=== PATIENT | male | born 1930 | race Caucasian/White ===

== ENCOUNTER → 2016-09-13 | Outpatient (CLI) | payer MEDICARE ==
[2016-09-13 11:42] LABS: INR 3.5 (<1.1); Prothrombin Time 33.7 sec (9.0-12.0)
== END | disposition home or self-care (01) ==
LOC: LABWHC1 11:23
PROVIDERS: ATTEND Internal Medicine
DX: I48.1 Persistent atrial fibrillation (principal)
CPT/HCPCS: 36415; 85610

== ENCOUNTER → 2016-12-20 | Outpatient (CLI) | payer MEDICARE ==
[2016-12-20 12:39] LABS: INR 2.2 (<1.1); Prothrombin Time 21.6 sec (9.0-12.0)
== END | disposition home or self-care (01) ==
LOC: LABWHC1 11:46
PROVIDERS: ATTEND Internal Medicine
DX: I48.2 Chronic atrial fibrillation (principal)
CPT/HCPCS: 36415; 85610

== ENCOUNTER → 2017-01-15 | Outpatient (CLI) | payer MEDICARE ==
[2017-01-15 16:34] LABS: Basophils % (A) 0 %; CH 29.5; CHCM 33.1; Eosinophils # (A) 0.1 k/uL (0-0.7); Eosinophils % (A) 1 %; HCT 41.9 % (39.0-53.0); HDW 2.58; HGB 13.9 gm/dL (13.0-17.5); Luc # (Auto) 0.13; Luc % (Auto) 2; Lymphocytes # (A) 1.4 k/uL (1.0-4.8); Lymphocytes % (A) 16 %; MCH 29.8 pg (25.0-35.0); MCHC 33.2 g/dL (31.0-37.0); MCV 89.8 fL (80.0-100.0); Mean Platelet Volume 7.2; Monocytes # (A) 0.4 k/uL (0-1.0); Monocytes % (A) 5 %; Neutrophils # (A) 6.4 k/uL (1.3-7.7); Neutrophils % (A) 76 %; RBC 4.67 m/uL (4.30-5.90); RDW 13.8 % (11.5-15.5); WBC 8.4 k/uL (3.8-10.6); WBC (Perox) 8.41
[2017-01-15 16:43] LABS: INR 1.8 (<1.1); Prothrombin Time 17.8 sec (9.0-12.0)
[2017-01-15 16:53] LABS: ALT 34 U/L (21-72); AST 29 U/L (17-59); Alkaline Phosphatase 110 U/L (38-126); Anion Gap 10 mmol/L; Blood Urea Nitrogen 20 mg/dL (9-20); Calcium 9.5 mg/dL (8.4-10.2); Carbon Dioxide 28 mmol/L (22-30); Chloride 103 mmol/L (98-107); Glucose 116 mg/dL (74-99); Non-African American GFR(MDRD) >60 (>60 ml/min/1.73 sqM); Potassium 4.8 mmol/L (3.5-5.1); Sodium 141 mmol/L (137-145); Total Bilirubin 1.4 mg/dL (0.2-1.3); Total Protein 6.8 g/dL (6.3-8.2)
[2017-01-15 18:29] LABS: Erythrocyte Sedimentation Rate 8 mm/hr (0-15)
--- NOTE | 2017-01-15 18:56 | CT ---
EXAMINATION TYPE: CT brain wo con DATE OF EXAM: 01/15/2017 6:48 PM COMPARISON: 06/07/2016 HISTORY: Dizziness, and syncopal episode [address] DLP: 1236 mGycm Automated exposure control for dose reduction was used. FINDINGS: There is cerebral cortical atrophy. There is no mass effect nor midline shift. There is no sign of in tracranial hemorrhage. The calvarium is intact. IMPRESSION: Cerebral atrophy. No acute intracranial abnormality. No change.
== END | disposition home or self-care (01) ==
LOC: RADCTMAIN 16:12
PROVIDERS: ATTEND Internal Medicine
DX: G31.9 Degenerative disease of nervous system, unspecified (principal); I48.0 Paroxysmal atrial fibrillation; I10 Essential (primary) hypertension
CPT/HCPCS: 70450; 80053; 85025; 85610; 85652

== ENCOUNTER 2017-02-13 12:46 | Inpatient (IN) | payer MEDICARE ==
[2017-02-13] MEDS ORDERED: SODIUM CHLORIDE 0.9% 500 ML IV STA (13:23)
[2017-02-13 14:21] LABS: Basophils % (A) 0 %; CH 29.4; CHCM 32.8; Eosinophils # (A) 0.1 k/uL (0-0.7); Eosinophils % (A) 1 %; HCT 39.5 % (39.0-53.0); HDW 2.54; HGB 12.9 gm/dL (13.0-17.5); Luc # (Auto) 0.14; Luc % (Auto) 1; Lymphocytes % (A) 8 %; MCH 29.3 pg (25.0-35.0); MCHC 32.6 g/dL (31.0-37.0); Mean Platelet Volume 7.5; Monocytes # (A) 0.7 k/uL (0-1.0); Monocytes % (A) 5 %; Neutrophils % (A) 85 %; RBC 4.39 m/uL (4.30-5.90); RDW 13.4 % (11.5-15.5); WBC (Perox) 12.92
[2017-02-13 14:24] LABS: INR 2.1 (<1.1); Partial Thromboplastin Time 31.4 sec (22.0-30.0); Prothrombin Time 20.5 sec (9.0-12.0)
[2017-02-13 14:25] LABS: ALT 52 U/L (21-72); AST 45 U/L (17-59); Alkaline Phosphatase 133 U/L (38-126); Anion Gap 10 mmol/L; Blood Urea Nitrogen 23 mg/dL (9-20); Calcium 9.2 mg/dL (8.4-10.2); Carbon Dioxide 27 mmol/L (22-30); Chloride 101 mmol/L (98-107); Glucose 101 mg/dL (74-99); Non-African American GFR(MDRD) >60 (>60 ml/min/1.73 sqM); Potassium 4.6 mmol/L (3.5-5.1); Sodium 138 mmol/L (137-145); Total Bilirubin 2.3 mg/dL (0.2-1.3); Total Protein 6.8 g/dL (6.3-8.2)
[2017-02-13] MEDS ORDERED: LEVOFLOXACIN 500MG-D5W PMX 500 MG in DEXTROSE/WATER 1 100ML.BAG IVPB STA (14:40)
--- NOTE | 2017-02-13 14:42 | ED ---
General Adult HPI - General Chief complaint: Shortness of Breath Stated complaint: Upper Resp Infection Time Seen by Provider: 02/13/17 13:16 Source: patient, family, RN notes reviewed Mode of arrival: wheelchair Limitations: no limitations - History of Present Illness Initial comments: chief complaint and history of present illness this is an 86-year-old male here with his family. They're sent here from x-ray because chest x-ray showed right upper lobe pneumonia. The patient was seen earlier in the day but the family physician or the x-ray. Patient reports had a productive cough develop a fever he thinks yesterday and has chest pain when he coughs. - Related Data Home Medications Medication Instructions Recorded Confirmed Aspirin [Adult Low Dose Aspirin EC] 81 mg PO DAILY 05/04/16 02/13/17 Digoxin [Lanoxin] 125 mcg PO DAILY 05/04/16 02/13/17 Finasteride [Proscar] 5 mg PO DAILY 05/04/16 02/13/17 Lisinopril [Zestril] 5 mg PO DAILY 05/04/16 02/13/17 Simvastatin [Zocor] 40 mg PO HS 05/04/16 02/13/17 Warfarin [Coumadin] 5 mg PO HS 05/04/16 02/13/17 amLODIPine [Norvasc] 5 mg PO DAILY 05/04/16 02/13/17 Metoprolol Succinate [Toprol XL] 50 mg PO DAILY 06/07/16 02/13/17 Omeprazole [PriLOSEC] 20 mg PO AC-BRKFST PRN 02/13/17 02/13/17 traMADol HCL [Ultram] 50 mg PO TID PRN 02/13/17 02/13/17 Allergies Allergy/AdvReac Type Severity Reaction Status Date / Time No Known Allergies Allergy Verified 02/13/17 13:54 Review of Systems ROS Statement: Those systems with pertinent positive or pertinent negative responses have been documented in the HPI. review of systems. Patient denies any visual acuity changes no headache no stiff neck he has productive cough with a fever today chest pain when he coughs. No GI/ or neuro deficits. All systems were reviewed Past medical problems significant for A. fib on Coumadin, hyperlipidemia, hypertension. He had a heart attack in 1999. Osteoarthritis left sciatica. After his open heart surgery and a TIA's from which she is recovered. The patient's surgeries also include cholecystectomy and hernia repair pacemaker. And his coronary bypass. Family history father had cancer of unknown type. Patient denies ALLERGIES quit smoking 40 years ago denies alcohol use ROS Other: All systems not noted in ROS Statement are negative. Past Medical History Past Medical History: Atrial Fibrillation, Hyperlipidemia, Hypertension, Myocardial Infarction ([place]), Osteoarthritis (OA) Additional Past Medical History / Comment(s): pain lt sciatica Last Myocardial Infarction Date:: 1999 History of Any Multi-Drug Resistant Organisms: None Reported Past Surgical History: Cholecystectomy, Coronary Bypass/CABG, Hernia Repair, Pacemaker Past Anesthesia/Blood Transfusion Reactions: Motion Sickness Type of Cardiac Device: Permanent Pacemaker Device Placement Date:: 2009 Past Psychological History: No Psychological Hx Reported Smoking Status: Former smoker Past Alcohol Use History: Rare Additional Past Alcohol Use History / Comment(s): smoker 40 years 2 ppd quit 1978 Past Drug Use History: None Reported - Past Family History Father Family Medical History: Cancer Additional Family Medical History / Comment(s): lymphoma Brother(s) Family Medical History: Cancer General Exam - General Exam Comments Initial Comments: General: The patient is awake and alert, complaining of productive cough, noted to have fever today. Chest hurts when he coughs. Vital signs shows temperature 102.4 pulse 64 respiratory rate 18 pulse ox 94% on 2 L blood pressure 137/62 Eye: Pupils are equal, round and reactive to light, extra-ocular movements are intact ; there is normal conjunctiva bilaterally. No signs of icterus. Ears, nose, mouth and throat: There are moist mucous membranes and no oral lesions. Neck: The neck is supple, there is no tenderness , no anterior cervical lymphadenopathy, thyroid not enlarged. Cardiovascular: A regular rate and rhythm, history of A. fib. Faint murmur appreciated. Respiratory: crepitant rales right lung field. Faint wheeze. Gastrointestinal: Soft, non-distended, non-tender abdomen without masses or organomegaly noted. There is no rebound or guarding present. No CVA tenderness. Bowel sounds are unremarkable. Back: There is no tenderness to palpation in the midline. There is no obvious deformity. No rashes noted. Musculoskeletal: Normal ROM, no tenderness, There is no pedal edema. There is no calf tenderness or swelling. Sensation intact. Pulses equal bilaterally 2+. Neurological: CN II-XII intact, There are no obvious motor or sensory deficits. Coordination appears grossly intact. Speech is normal. Skin: Skin is warm and dry and no rashes or lesions are noted. Limitations: no limitations Course Vital Signs 02/13/17 13:09 Temperature 102.4 F H Pulse Rate 64 Respiratory 18 Rate Blood Pressure 137/66 O2 Sat by Pulse 94 L Oximetry Medical Decision Making - Medical Decision Making medical decision making; white count is 13 hemoglobin 12.9 hematocrit 39. D- dimer slightly elevated 0.64 and INR 2.1. Patient's potassium is 4.6 BUN 23 creatinine 0.99 GFR greater than 60. Sugar 101. Total bilirubin elevated 2.3 alk phos 133. Patient be admitted to hospitalist, Dr. Skinner. Patient was started on Levaquin after blood cultures were drawn. - Lab Data Result diagrams: 02/13/17 13:56 02/13/17 13:56 Lab Results 02/13/17 02/13/17 02/13/17 Range/Units 13:56 13:56 13:56 WBC 13.0 H (3.8-10.6) k/uL RBC 4.39 (4.30-5.90) m/uL Hgb 12.9 L (13.0-17.5) gm/dL Hct 39.5 (39.0-53.0) % MCV 90.0 (80.0-100.0) fL MCH 29.3 (25.0-35.0) pg MCHC 32.6 (31.0-37.0) g/dL RDW 13.4 (11.5-15.5) % Plt Count 266 (150-450) k/uL Neutrophils % 85 % Lymphocytes % 8 % Monocytes % 5 % Eosinophils % 1 % Basophils % 0 % Neutrophils # 11.0 H (1.3-7.7) k/uL Lymphocytes # 1.0 (1.0-4.8) k/uL Monocytes # 0.7 (0-1.0) k/uL Eosinophils # 0.1 (0-0.7) k/uL Basophils # 0.0 (0-0.2) k/uL PT 20.5 H (9.0-12.0) sec INR 2.1 (<1.1) APTT 31.4 H (22.0-30.0) sec D-Dimer 0.64 H (<0.60) mg/L FEU Sodium 138 (137-145) mmol/L Potassium 4.6 (3.5-5.1) mmol/L Chloride 101 (98-107) mmol/L Carbon Dioxide 27 (22-30) mmol/L Anion Gap 10 mmol/L BUN 23 H (9-20) mg/dL Creatinine 0.99 (0.66-1.25) mg/dL Est GFR (MDRD) Af Amer >60 (>60 ml/min/1.73 sqM) Est GFR (MDRD) Non-Af >60 (>60 ml/min/1.73 sqM) Glucose 101 H (74-99) mg/dL Calcium 9.2 (8.4-10.2) mg/dL Total Bilirubin 2.3 H (0.2-1.3) mg/dL AST 45 (17-59) U/L ALT 52 (21-72) U/L Alkaline Phosphatase 133 H (38-126) U/L Total Protein 6.8 (6.3-8.2) g/dL Albumin 3.8 (3.5-5.0) g/dL Disposition Clinical Impression: Pneumonia Disposition: ADMITTED IP TO THIS HOSP Condition: Fair Referrals: Quinn Ricci MD [Primary Care Provider] - 1-2 days
[2017-02-13 14:49] LABS: Creatine Kinase MB 1.2 ng/mL (0.0-2.4); Troponin I 0.02 ng/mL (0.000-0.034)
[2017-02-13] MEDS ORDERED: ACETAMINOPHEN TAB 500 MG TAB PO STA ×2 (14:49→14:50)
[2017-02-13] MEDS ORDERED: ALBUTEROL NEBULIZED 2.5 MG/3 ML INHALATION STA (14:51)
[2017-02-13] MEDS ORDERED: ACETAMINOPHEN TAB 325 MG TAB PO PRN (14:53)
[2017-02-13] MEDS ORDERED: NALOXONE 0.4 MG/ML 1 ML VIAL IV PRN (14:53)
[2017-02-13] MEDS ORDERED: traMADol 50 MG TAB PO PRN (14:56)
[2017-02-13] MEDS ORDERED: SODIUM CHLORIDE 0.9% 1,000 ML IV SCH (15:00)
[2017-02-13 16:21] VITALS: BMI 28.2
[2017-02-13] MEDS ORDERED: RX INFO: IV CONTRAST WAS GIVEN 1 EACH MISC MISCELLANE PRN (16:42)
--- NOTE | 2017-02-13 18:11 | CT ---
EXAMINATION TYPE: CT angio chest DATE OF EXAM: 02/13/2017 5:36 PM COMPARISON: NONE HISTORY: Pneumonia, elevated d-dimer CT DLP: 420.5 mGycm Automated exposure control for dose reduction was used. CONTRAST: CTA scan of the thorax is performed with IV Contrast, patient injected with 100 mL of Omnipaque 350, pulmonary embolism protocol. There are 3-D post processed images.. FINDINGS: I see no filling defects in the pulmonary arteries. Thoracic aorta is atheromatous. Ascending aorta m easures 4.6 cm. Descending aorta measures 4 cm. Heart is enlarged. There is no pericardial effusion. There is no pleural effusion. There is patchy infiltrate in the right lower lobe and right middle lob e with some consolidation. There is patchy atelectasis at the lung bases. There is some nodular infil trate at the right posterior lung base. There are a few right side bronchial lymph nodes that measure up to 1.5 cm. There is multilevel spondylosis in the thoracic spine. IMPRESSION: NO EVIDENCE OF PULMONARY EMBOLISM. BILATERAL PNEUMONIC INFILTRATES AND MUCH WORSE IN THE RIGHT LOWER LOBE PROBABLY RELATED TO PNEUMONIA. 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 RIGHT BRONCHIAL ADENOPA THY PROBABLY DUE TO INFLAMMATORY DISEASE. CARDIOMEGALY. FOLLOW-UP IS RECOMMENDED TO SHOW RADIOGRAPHIC STABILITY OR CLEARING OF THE PULMONARY INFILTRATES.
[2017-02-13] MEDS ORDERED: NON-FORMULARY DRUG (Omeprazole 20 MG) PO PRN (18:27)
[2017-02-13] MEDS ORDERED: HYDROcodone/APAP 5-325MG 1 EACH TAB PO PRN (18:27)
[2017-02-13] MEDS ORDERED: FUROSEMIDE 10 MG/ML 4 ML VIAL IV STA (18:32)
[2017-02-13] MEDS: WARFARIN 5 MG TAB PO SCH (19:01)
[2017-02-13] MEDS: IPRATROPIUM 0.5 MG/2.5 ML NEBU INHALATION SCH (20:06)
[2017-02-13] MEDS: LEVALBUTEROL NEB (CONC) 1.25 MG/0.5 ML AMP INHALATION SCH (20:06)
[2017-02-13] MEDS: ATORVASTATIN 20 MG TAB PO SCH (20:57)
[2017-02-13] MEDS: FAMOTIDINE 20 MG TAB PO SCH (20:57)
[2017-02-13] MEDS ORDERED: WARFARIN 5 MG TAB PO SCH (21:00)
[2017-02-14] MEDS: PANTOPRAZOLE 40 MG TABLET PO SCH (08:00)
[2017-02-14 08:09] LABS: Basophils % (A) 0 %; CH 29.1; CHCM 32.3; Eosinophils # (A) 0.1 k/uL (0-0.7); Eosinophils % (A) 1 %; HCT 38.3 % (39.0-53.0); HDW 2.48; HGB 12.4 gm/dL (13.0-17.5); Luc # (Auto) 0.11; Luc % (Auto) 1; Lymphocytes % (A) 9 %; MCH 29.3 pg (25.0-35.0); MCHC 32.3 g/dL (31.0-37.0); MCV 90.7 fL (80.0-100.0); Mean Platelet Volume 7.6; Monocytes # (A) 0.6 k/uL (0-1.0); Monocytes % (A) 5 %; Neutrophils % (A) 84 %; RBC 4.22 m/uL (4.30-5.90); RDW 13.2 % (11.5-15.5); WBC 10.8 k/uL (3.8-10.6); WBC (Perox) 10.49
[2017-02-14 08:11] LABS: INR 2.2 (<1.1); Prothrombin Time 20.9 sec (9.0-12.0)
[2017-02-14 08:23] LABS: Anion Gap 12 mmol/L; Blood Urea Nitrogen 19 mg/dL (9-20); Calcium 9.2 mg/dL (8.4-10.2); Carbon Dioxide 25 mmol/L (22-30); Chloride 100 mmol/L (98-107); Glucose 106 mg/dL (74-99); Non-African American GFR(MDRD) >60 (>60 ml/min/1.73 sqM); Potassium 4.6 mmol/L (3.5-5.1); Sodium 137 mmol/L (137-145)
[2017-02-14] MEDS: IPRATROPIUM 0.5 MG/2.5 ML NEBU INHALATION SCH ×4 (08:44→19:33)
[2017-02-14] MEDS: LEVALBUTEROL NEB (CONC) 1.25 MG/0.5 ML AMP INHALATION SCH ×3 (08:44→19:33)
--- NOTE | 2017-02-14 09:14 | HP ---
DATE OF ADMISSION: 02/13/2017 CHIEF COMPLAINT: Shortness of breath and cough and sputum. HISTORY OF PRESENT ILLNESS: This 86-year-old gentleman with a past medical history of multiple medical problems, being followed by with atrial fibrillation, hypertension, hyperlipidemia, myocardial infarction, history of DJD, history of cholecystectomy, CAD/CABG being followed by Dr. Ricci in the outpatient setting, not feeling well for the past several days, the patient with increasing cough and sputum. Because of the lack of improvement, the patient had x-ray and x-ray showed right upper lobe pneumonia and CT scan was also done, which showed multiple findings including no evidence of pulmonary embolism but bilateral pulmonary infiltrates, right more than the left, mostly in the lower lobe and aneurysmal changes in thoracic aorta, right adenopathy, . The patient admitted to the hospital for further evaluation and treatment. There is no history of any fever, rigors or chills. No history of headache, loss of consciousness or seizures. PAST MEDICAL HISTORY: History of atrial fibrillation, hypertension, hyperlipidemia, history of myocardial infarction, history of cholecystectomy, history of CAD, CABG, history of pacemaker. Medications prior to admission include home medications are: 1. Norvasc 5 mg p.o. daily. 2. Coumadin 5 mg at bedtime. 3. Zocor 40 mg q.h.s. 4. Prilosec 20 mg a.c. breakfast. p.r.n. 5. Toprol-XL 50 mg daily. 6. Zestril 5 mg daily. 7. Proscar 5 mg p.o. daily. 8. Lanoxin 125 mcg p.o. daily. 9. Aspirin 81 mg p.o. daily. 10. Ultram 50 mg t.i.d. p.r.n. ALLERGIES: None. FAMILY HISTORY: History of cancer and lymphoma in the family. SOCIAL HISTORY: Previous history of smoking. No history of current smoking. No alcohol intake. REVIEW OF SYSTEMS: ENT: Diminished hearing. No diminished vision. CARDIOVASCULAR: As mentioned earlier. RESPIRATORY: As mentioned earlier. GI: No nausea. : No dysuria. Nervous system: No numbness or weakness. ALLERGY/IMMUNOLOGY: No asthma or hayfever. MUSCULOSKELETAL: As mentioned earlier. HEMATOLOGY: No history of anemia. ENDOCRINE: No history of diabetes or hypothyroidism. CONSTITUTIONAL: As mentioned earlier. RHEUMATOLOGY: Negative. DERMATOLOGY: Negative. PSYCHIATRY: As mentioned earlier. PHYSICAL EXAMINATION: Alert and oriented x3. Pulse 67, blood pressure 124/59, respiratory rate 16, temperature 98.2, T-Max 100.8, pulse ox 98% on 2 L. HEENT: Conjunctivae normal. Oral mucosa moist. NECK: No jugular venous distention. No carotid bruit. No lymph node enlargement. CARDIOVASCULAR: S1, S2 muffled. No S3, no S4. RESPIRATORY: Breath sounds diminished at the bases. Bilateral scattered rhonchi and expiratory wheezing and crackles also. Chest is kyphoscoliotic. No bronchial breath sounds. ABDOMEN: Soft, nontender. No mass palpable. Legs: No edema. No swelling. Nervous system: Higher functions as mentioned earlier. Moves all 4 limbs. No focal motor or sensory deficits. LYMPHATICS: No lymph nodes palpable in the neck, axillae or groin. SKIN: No ulcer, rash or bleeding. Joints: No active deforming arthropathy. LABS: WBC is 13, hemoglobin is 12.9. INR is 2.1 and PT 20.5. ASSESSMENT AND PLAN: 1. Bilateral pneumonia, right more than the left possible community acquired, possibly gram-negative. 2. Hyperbilirubinemia, mild. 3. Chronic obstructive pulmonary disease. 4. Coumadin monitoring. 5. Increased WBC. 6. Anemia, normocytic anemia of chronic disease. 7. History of atrial fibrillation, chronic, persistent. 8. History of pacemaker. 9. History of hypertension, essential. 10. History of hyperlipidemia. 11. History of myocardial infarction. 12. History of sciatica. 13. History of coronary artery disease/ coronary artery bypass grafting. 14. Remote history of nicotine dependence. 15. NO CODE, NO CPR, NO VENT. RECOMMENDATIONS AND DISCUSSION: In this 86-year-old gentleman who presented with multiple complex medical issues, we will monitor the patient closely. Continue with current medications. Continue symptomatic treatment. Otherwise, at this time, recommend to resume the home medication. Monitor closely. Broad-spectrum IV antibiotics. Cultures. Bronchodilators. We will closely follow with Dr. Truong. Guarded prognosis because of multiple complex medical issues. Further recommendations to follow. A copy of dictation being forwarded to Dr. Ricci who is the primary care physician. TASHA
[2017-02-14] MEDS: AZITHROMYCIN 500 MG TAB PO SCH (09:25)
[2017-02-14] MEDS: LISINOPRIL 5 MG TAB PO SCH (09:25)
[2017-02-14] MEDS: ASPIRIN 81 MG CHEW PO SCH (09:26)
[2017-02-14] MEDS: METOPROLOL SUCCINATE (ER) 50 MG TAB.ER.24H PO SCH (09:26)
[2017-02-14] MEDS: DIGOXIN 125 MCG TAB PO SCH (09:26)
[2017-02-14] MEDS: amLODIPine 5 MG TAB PO SCH (09:26)
[2017-02-14] MEDS: FAMOTIDINE 20 MG TAB PO SCH (09:26)
[2017-02-14] MEDS: FINASTERIDE 5 MG TAB PO SCH (09:27)
[2017-02-14 11:21] LABS: Appearance,Urine Clear (Clear); Bilirubin,Urine Negative (Negative); Glucose,Urine (UA) Negative (Negative); Ketones,Urine Negative (Negative); Leukocyte Esterase,Urine Negative (Negative); Mucus,Urine Rare /hpf; Nitrite,Urine Negative (Negative); Particle Count 10920; Protein,Urine Trace (Negative); RBC,Urine <1 /hpf (0-5); Specific Gravity,Urine 1.013 (1.001-1.035); UA Billing (MACRO vs. MICRO) MICRO; WBC,Urine <1 /hpf (0-5)
--- NOTE | 2017-02-14 15:09 | P.CNPUL ---
History of Present Illness Consult date: 02/14/17 Reason for consult: pneumonia History of present illness: 86-year-old male patient, known history of coronary artery disease with a previous bypass surgery, along with previous history of chronic atrial fibrillation and hypertension, whereas been an ex-smoker who quit smoking about 40 years ago, presented to his primary care physician's office because of 1 week worth of increased cough, chest congestion, shortness of breath, and wheezing. The patient was seen at his primary care physician's office and the chest x-ray was done which indicated a right lung pneumonia following that the patient was advised to come in to the burst department for further treatment. The patient had a CT angios the chest here in the emergency department that showed no evidence of any pulmonary embolism and there was significant consolidation of the right middle lobe and the right lower lobe consistent with an underlying pneumonia. The ascending aorta measured 4.6 cm in size and the descending aorta measured 4.0 cm in size. The heart was enlarged. There was no pericardial effusion. There is some minimal enlargement of the mediastinal lymph nodes in the right paratracheal lymph node is measuring 1.5 cm. There was also evidence of thoracic spine disease with spondylosis. The patient has no significant leukocytosis. The patient is therapeutic and his PT/INR with an INR of 2.2. Rest of the blood work and electrodes are all within normal limits. The patient was started on broad-spectrum antibiotics. He is currently on a combination of Rocephin and Zithromax. He is also receiving albuterol and Xopenex about treatments around the clock 4 times a day. He is clinically feeling better compared to yesterday. No use of excessive muscle breathing. No pleurisy or hemoptysis at this point. No change in mental status. He does not have frequent bouts of pneumonia. Last bout of pneumonia was back in the 50s when he was quite young. No aspiration. No travel history. Review of Systems All systems: negative Constitutional: Denies chills, Denies fever Eyes: denies blurred vision, denies pain Ears, nose, mouth and throat: Denies headache, Denies sore throat Cardiovascular: Reports decreased exercise tolerance, Reports dyspnea on exertion, Reports shortness of breath, Denies chest pain Respiratory: Reports cough, Reports cough with sputum, Reports dyspnea, Reports wheezing Gastrointestinal: Denies abdominal pain, Denies diarrhea, Denies nausea, Denies vomiting Musculoskeletal: Denies myalgias Integumentary: Denies pruritus, Denies rash Neurological: Denies numbness, Denies weakness Psychiatric: Denies anxiety, Denies depression Endocrine: Denies fatigue, Denies weight change Past Medical History Past Medical History: Atrial Fibrillation, Hyperlipidemia, Hypertension, Myocardial Infarction ([place]), Osteoarthritis ([place]) Additional Past Medical History / Comment(s): Coronary artery disease with a previous bypass surgery, chronic atrial fibrillation, hyperlipidemia, hypertension, osteoarthritis, previous history of pacemaker insertion, chronic back pain, sciatica Last Myocardial Infarction Date:: 1999 History of Any Multi-Drug Resistant Organisms: None Reported Past Surgical History: Cholecystectomy, Coronary Bypass/CABG, Hernia Repair, Pacemaker Past Anesthesia/Blood Transfusion Reactions: Motion Sickness Type of Cardiac Device: Permanent Pacemaker Device Placement Date:: 2009 Past Psychological History: No Psychological Hx Reported Smoking Status: Former smoker Past Alcohol Use History: Rare Additional Past Alcohol Use History / Comment(s): smoker 40 years 2 ppd quit 1978 Past Drug Use History: None Reported - Past Family History Father Family Medical History: Cancer Additional Family Medical History / Comment(s): lymphoma Brother(s) Family Medical History: Cancer Medications and Allergies Home Medications Medication Instructions Recorded Confirmed Type Aspirin [Adult Low Dose Aspirin EC] 81 mg PO DAILY 05/04/16 02/13/17 History Digoxin [Lanoxin] 125 mcg PO DAILY 05/04/16 02/13/17 History Finasteride [Proscar] 5 mg PO DAILY 05/04/16 02/13/17 History Lisinopril [Zestril] 5 mg PO DAILY 05/04/16 02/13/17 History Simvastatin [Zocor] 40 mg PO HS 05/04/16 02/13/17 History Warfarin [Coumadin] 5 mg PO HS 05/04/16 02/13/17 History amLODIPine [Norvasc] 5 mg PO DAILY 05/04/16 02/13/17 History Metoprolol Succinate [Toprol XL] 50 mg PO DAILY 06/07/16 02/13/17 History Omeprazole [PriLOSEC] 20 mg PO AC-BRKFST PRN 02/13/17 02/13/17 History traMADol HCL [Ultram] 50 mg PO TID PRN 02/13/17 02/13/17 History Allergies Allergy/AdvReac Type Severity Reaction Status Date / Time No Known Allergies Allergy Verified 02/13/17 13:54 Physical Exam Vitals: Vital Signs Temp Pulse Pulse Resp BP Pulse Ox 02/14/17 12:52 60 02/14/17 12:41 62 02/14/17 08:56 60 02/14/17 08:45 60 02/14/17 07:00 98.3 F 60 16 155/72 93 L 02/13/17 23:00 96.7 F L 60 16 147/67 95 02/13/17 20:07 59 L 14 93 L 02/13/17 16:03 98.9 F 67 16 124/59 90 L 02/13/17 15:17 63 02/13/17 15:06 61 Intake and Output 02/14/17 02/14/17 02/14/17 06:59 14:59 22:59 Intake Total 50 Output Total 200 Balance -200 50 Intake: Intake, IV Titration 50 Amount cefTRIAXone 1,000 mg In 50 Sodium Chloride 0.9% 50 ml @ 100 mls/hr IVPB Q24HR [facility] Rx#:[id number] Output: Urine 200 Other: Voiding Method Toilet Urinal # Voids 225 Head exam was generally normal. There was no scleral icterus or corneal arcus. Mucous membranes were moist.Neck was supple and without jugular venous distension, thyromegaly, or carotid bruits. Carotids were easily palpable bilaterally. There was no adenopathy. Lung sounds are diminished bilaterally and there is some occasional expiratory wheezes and scattered expiratory rhonchi. Crackles are heard in the right lower lung area.Cardiac exam revealed the PMI to be normally situated and sized. The rhythm was regular and no extrasystoles were noted during several minutes of auscultation. The first and second heart sounds were normal and physiologic splitting of the second heart sound was noted. There were no murmurs, rubs, clicks, or gallops. Sternum stable clean and intact.Abdominal exam revealed normal bowel sounds. The abdomen was soft, non-tender, and without masses, organomegaly, or appreciable enlargement of the abdominal aorta.Examination of the extremities revealed easily palpable radial, femoral and pedal pulses. There was no cyanosis, clubbing or edema. Results - Laboratory Findings CBC and BMP: 02/14/17 07:23 02/14/17 07:23 PT/INR, D-dimer PT 20.9 sec (9.0-12.0) H 02/14/17 07:23 INR 2.2 (<1.1) 02/14/17 07:23 D-Dimer 0.64 mg/L FEU (<0.60) H 02/13/17 13:56 Abnormal lab findings: Abnormal Labs 02/13/17 02/13/17 02/13/17 13:56 13:56 13:56 WBC 13.0 H RBC Hgb 12.9 L Hct Neutrophils # 11.0 H PT 20.5 H APTT 31.4 H D-Dimer 0.64 H BUN 23 H Glucose 101 H Total Bilirubin 2.3 H Alkaline Phosphatase 133 H Urine Protein Urine Blood Urine Mucus 02/14/17 02/14/17 02/14/17 07:23 07:23 07:23 WBC 10.8 H RBC 4.22 L Hgb 12.4 L Hct 38.3 L Neutrophils # 9.0 H PT 20.9 H APTT D-Dimer BUN Glucose 106 H Total Bilirubin Alkaline Phosphatase Urine Protein Urine Blood Urine Mucus 02/14/17 10:55 WBC RBC Hgb Hct Neutrophils # PT APTT D-Dimer BUN Glucose Total Bilirubin Alkaline Phosphatase Urine Protein Trace H Urine Blood Trace H Urine Mucus Rare H - Diagnostic Findings Chest x-ray: image reviewed CT scan - chest: image reviewed Assessment and Plan Plan: Assessment 1 acute community-acquired bilobar/right middle lobe and right lower lobe pneumonia. 2 shortness of breath secondary to above 3 coronary artery disease with previous bypass surgery 4 chronic atrial fibrillation rate is controlled and the patient is fully integrated with warfarin 5 hypertension 6 hyperlipidemia 7 history of pacemaker insertion 8 quite the bypass surgery 9 osteoarthritis Plan Obtain sputum Gram stain and culture. Obtain blood culture. Obtain Legionella urine antigen. Cover the patient accommodation Rocephin and Zithromax. Add IV Solu-Medrol 40 mg every 6 hours. Continue DuoNeb the veterans around-the- clock. Repeat chest x-ray with next 24-48 hours. We'll continue to follow. No evidence of malignancy. The mediastinal lymph nodes are probably reactive. We'll follow.
[2017-02-14 17:25] LABS: Glucose,Whole Blood 139 mg/dL (75-99)
[2017-02-14] MEDS: INSULIN LISPRO (humaLOG) 300 UNIT/3 ML VIAL SQ SCH ×2 (17:58→21:37)
[2017-02-14] MEDS: methylPREDNISolone SOD SUCCI 40 MG/ML 1 ML VIAL IV SCH ×2 (17:59→23:49)
[2017-02-14] MEDS: WARFARIN 5 MG TAB PO SCH (18:00)
--- NOTE | 2017-02-14 18:05 | P.PN ---
Subjective Date of service 02/14/2017. Progress note being dictated for Dr. Skinner. Interval history: This is a 86-year-old gentleman admitted with bilateral pneumonia and multiple other medical issues. 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 Evaluated by pulmonary with recommendations noted. INR 2.2. Review of systems: HEENT: Denies headache or focal deficits. Denies any dizziness or lightheadedness. Respiratory: shortness of breath. Cardiac: Denies any chest pain, palpitations. GI: Denies any nausea, vomiting, or diarrhea. Denies any abdominal tenderness. : Denies any dysuria. Psychiatry: Denies any anxiety or depression. Active Medications Generic Name Dose Route Start Last Admin Trade Name Freq PRN Reason Stop Dose Admin Acetaminophen 650 mg 02/13/17 14:53 02/14/17 12:52 Tylenol Tab PO 650 mg Q6HR PRN Administration Mild Pain or Fever > 100.5 Hydrocodone Bitart/Acetaminophen 1 each 02/13/17 18:27 [place] 5-325 PO Q6HR PRN Pain Alprazolam 0.25 mg 02/13/17 18:27 Xanax PO TID PRN Anxiety Amlodipine Besylate 5 mg 02/14/17 09:00 02/14/17 09:26 Norvasc PO 5 mg DAILY [facility] Administration Aspirin 81 mg 02/14/17 09:00 02/14/17 09:26 Aspirin PO 81 mg DAILY EN[facility]UEL Administration Atorvastatin Calcium 20 mg 02/13/17 21:00 02/13/17 20:57 Lipitor PO 20 mg HS ENMANUEL Administration Azithromycin 500 mg 02/14/17 09:00 02/14/17 09:25 Zithromax PO 500 mg DAILY ENMANUEL Administration Digoxin 125 mcg 02/14/17 09:00 02/14/17 09:26 Lanoxin PO 125 mcg DAILY EN[facility]EL Administration Finasteride 5 mg 02/14/17 09:00 02/14/17 09:27 Proscar PO 5 mg DAILY [facility] Administration Guaifenesin 200 mg 02/14/17 13:36 Robitussin PO Q6H PRN Cough Ceftriaxone Sodium 1,000 mg/ 50 mls @ 100 mls/hr 02/14/17 09:00 02/14/17 09: 25 Sodium Chloride IVPB 100 mls/hr Q24HR EN[facility]UEL Administration Insulin Human Lispro 0 unit 02/14/17 17:30 Humalog SQ ACHS [facility] Protocol Ipratropium [place] 0.5 mg 02/13/17 20:00 02/14/17 15:13 Atrovent Nebulized INHALATION Not Given RT-QID [facility] Levalbuterol HCl 1.25 mg 02/13/17 20:00 02/14/17 12:40 Xopenex Nebulized (Conc) INHALATION 1.25 mg RT-TID ENMANUEL Administration Lisinopril 5 mg 02/14/17 09:00 02/14/17 09:25 Zestril PO 5 mg DAILY [facility] Administration Methylprednisolone Sodium Succinate 40 mg 02/14/17 18:00 Solu-Medrol IV Q6HR [facility] Metoprolol Succinate 50 mg 02/14/17 09:00 02/14/17 09:26 Toprol Xl PO 50 mg DAILY [facility] Administration Miscellaneous Information 1 each 02/13/17 16:42 Rx Info: Iv Contrast Was Given MISCELLANE 02/15/17 16:43 DAILY PRN Per Protocol Naloxone HCl 0.2 mg 02/13/17 14:53 Narcan IV Q2M PRN Opioid Reversal Pantoprazole Sodium 40 mg 02/14/17 07:30 02/14/17 08:00 Protonix PO 40 mg [id number] [facility] Administration Tramadol HCl 50 mg 02/13/17 14:56 Ultram PO TID PRN Pain Warfarin Sodium 5 mg 02/13/17 19:00 02/13/17 19:01 Coumadin PO 5 mg 1800 ENMANUEL Administration Objective - Vital Signs Vital signs: Vital Signs Temp 97.2 F L 02/14/17 15:00 Pulse 65 02/14/17 15:00 Resp 16 02/14/17 16:00 BP 135/63 02/14/17 15:00 Pulse Ox 92 L 02/14/17 15:00 Intake & Output 02/13/17 02/14/17 02/14/17 18:59 06:59 18:59 Intake Total 100 220 Output Total 550 Balance -450 220 Weight 94.5 kg Intake: Intake, IV Titration 100 Amount cefTRIAXone 1,000 mg In 100 Sodium Chloride 0.9% 50 ml @ 100 mls/hr IVPB Q24HR [facility] Rx#:[id number] Oral 100 120 Output: Urine 550 Other: Voiding Method Toilet Urinal # Voids 225 - Exam PHYSICAL EXAM: VITAL SIGNS: As above GENERAL: [Eating up in bed, no acute distress,] HEENT: [Pupils equal conjunctiva normal. Oral mucosa moist] NECK: [Supple, no JVD] RESPIRATORY EFFORT:[ Increased] LUNGS: [Bilateral bases diminished, scattered rhonchi and crackles with expiratory wheezing present. Kyphoscoliotic] CARDIOVASCULAR[ regular S1 and S2, no murmurs rubs or gallops, no edema] GI: [Abdomen soft, nontender, positive bowel sounds. No palpable masses, no guarding, no rigidity] PSYCH: [Alert and oriented -3, mood and affect normal.] NEURO: [No focal deficits, moves all 4 extremities, strength and sensation grossly intact.] - Labs CBC & Chem 7: 02/14/17 07:23 02/14/17 07:23 Labs: Abnormal Lab Results - Last 24 Hours (Table) 02/14/17 02/14/17 02/14/17 Range/Units 07:23 07:23 07:23 WBC 10.8 H (3.8-10.6) k/uL RBC 4.22 L (4.30-5.90) m/uL Hgb 12.4 L (13.0-17.5) gm/dL Hct 38.3 L (39.0-53.0) % Neutrophils # 9.0 H (1.3-7.7) k/uL PT 20.9 H (9.0-12.0) sec Glucose 106 H (74-99) mg/dL POC Glucose (mg/dL) (75-99) mg/dL Urine Protein (Negative) Urine Blood (Negative) Urine Mucus (None) /hpf 02/14/17 02/14/17 Range/Units 10:55 17:18 WBC (3.8-10.6) k/uL RBC (4.30-5.90) m/uL Hgb (13.0-17.5) gm/dL Hct (39.0-53.0) % Neutrophils # (1.3-7.7) k/uL PT (9.0-12.0) sec Glucose (74-99) mg/dL POC Glucose (mg/dL) 139 H (75-99) mg/dL Urine Protein Trace H (Negative) Urine Blood Trace H (Negative) Urine Mucus Rare H (None) /hpf Microbiology - Last 24 Hours (Table) 02/13/17 13:56 Blood Culture - Preliminary Blood No Growth after 24 hours 02/14/17 10:55 Urine Culture - Preliminary Urine,Clean Catch Assessment and Plan Plan: 1. Bilateral pneumonia, right greater than left, possibly community-acquired, possibly gram-negative. 2. [ Mild hyperbilirubinemia]. 3. [ COPD]. 4. [ Coumadin monitoring]. 5. [ Leukocytosis]. 6. [ Anemia, normocytic of chronic disease]. 7. [ Chronic persistent atrial fibrillation]. 8. History of pacemaker 9. Essential hypertension 10. Hyperlipidemia 11. CAD, history of OR and CABG, 12.Family history of nicotine dependence 13. No code, no CPR, no vent 14. Mediastinal lymph nodes, suspect reactive as per pulmonary Plan: Continue on current medication regime, nebulized bronchodilators, steroids , Zithromax, Rocephin, monitoring and symptomatic treatment. Sputum / bloodCultures pending. Follow closely with pulmonary. Further recommendations to follow. The impression and plan of care has been dictated as directed. : I performed a H&P examination of this patient and discussed the same with the dictator. I agree with the dictator's note. Any additional findings/opinions/ etc. will be noted.
[2017-02-14] MEDS: ATORVASTATIN 20 MG TAB PO SCH (20:19)
[2017-02-14] MEDS: guaiFENesin SYRUP 100MG/5ML 200 MG/10 ML CUP PO PRN (20:22)
[2017-02-14 21:26] LABS: Glucose,Whole Blood 194 mg/dL (75-99)
[2017-02-14] MEDS: ALPRAZolam 0.25 MG TAB PO PRN (21:46)
[2017-02-15 04:55] LABS: Hemoglobin A1C 5.7 % (4.2-6.1)
--- NOTE | 2017-02-15 05:46 | PN ---
DATE OF SERVICE: 02/14/2017 This 86-year-old gentleman who was admitted with bilateral pneumonia is on broad-spectrum IV antibiotics. Pulmonary consultation has been sought. Seen and evaluated the patient along with the nurse practitioner. Please refer to nurse practitioner notes and impression documented for further information. Further recommendations to follow.
[2017-02-15] MEDS: methylPREDNISolone SOD SUCCI 40 MG/ML 1 ML VIAL IV SCH ×4 (06:50→23:38)
[2017-02-15] MEDS: IPRATROPIUM 0.5 MG/2.5 ML NEBU INHALATION SCH ×4 (07:29→19:55)
[2017-02-15] MEDS: LEVALBUTEROL NEB (CONC) 1.25 MG/0.5 ML AMP INHALATION SCH ×3 (07:29→19:55)
[2017-02-15 07:50] LABS: Glucose,Whole Blood 147 mg/dL (75-99)
[2017-02-15] MEDS: METOPROLOL SUCCINATE (ER) 50 MG TAB.ER.24H PO SCH (09:53)
[2017-02-15] MEDS: amLODIPine 5 MG TAB PO SCH (09:53)
[2017-02-15] MEDS: ASPIRIN 81 MG CHEW PO SCH (09:53)
[2017-02-15] MEDS: AZITHROMYCIN 500 MG TAB PO SCH (09:53)
[2017-02-15] MEDS: LISINOPRIL 5 MG TAB PO SCH (09:53)
[2017-02-15] MEDS: INSULIN LISPRO (humaLOG) 300 UNIT/3 ML VIAL SQ SCH ×4 (09:53→21:18)
[2017-02-15] MEDS: FINASTERIDE 5 MG TAB PO SCH (09:53)
[2017-02-15] MEDS: DIGOXIN 125 MCG TAB PO SCH (09:53)
[2017-02-15] MEDS: PANTOPRAZOLE 40 MG TABLET PO SCH (09:54)
[2017-02-15 10:13] LABS: Prothrombin Time 19.6 sec (9.0-12.0)
[2017-02-15 10:18] LABS: Basophils % (A) 0 %; CH 29.3; CHCM 32.5; Eosinophils % (A) 0 %; HCT 40.4 % (39.0-53.0); HGB 12.9 gm/dL (13.0-17.5); Luc # (Auto) 0.02; Luc % (Auto) 0; Lymphocytes # (A) 0.4 k/uL (1.0-4.8); Lymphocytes % (A) 5 %; MCH 28.9 pg (25.0-35.0); MCV 90.5 fL (80.0-100.0); Mean Platelet Volume 7.4; Monocytes # (A) 0.1 k/uL (0-1.0); Monocytes % (A) 1 %; Neutrophils # (A) 8.1 k/uL (1.3-7.7); Neutrophils % (A) 94 %; RBC 4.47 m/uL (4.30-5.90); RDW 13.2 % (11.5-15.5); WBC 8.6 k/uL (3.8-10.6); WBC (Perox) 8.94
[2017-02-15 10:50] LABS: Anion Gap 13 mmol/L; Blood Urea Nitrogen 22 mg/dL (9-20); Calcium 9.6 mg/dL (8.4-10.2); Carbon Dioxide 24 mmol/L (22-30); Chloride 102 mmol/L (98-107); Glucose 222 mg/dL (74-99); Non-African American GFR(MDRD) >60 (>60 ml/min/1.73 sqM); Potassium 4.4 mmol/L (3.5-5.1); Sodium 139 mmol/L (137-145)
[2017-02-15 11:43] LABS: Glucose,Whole Blood 179 mg/dL (75-99)
[2017-02-15] MEDS: guaiFENesin SYRUP 100MG/5ML 200 MG/10 ML CUP PO PRN (14:09)
--- NOTE | 2017-02-15 16:54 | P.PN ---
Subjective Principal diagnosis: Pneumonia right middle lobe 86-year-old male patient, known history of coronary artery disease with a previous bypass surgery, along with previous history of chronic atrial fibrillation and hypertension, whereas been an ex-smoker who quit smoking about 40 years ago, presented to his primary care physician's office because of 1 week worth of increased cough, chest congestion, shortness of breath, and wheezing. The patient was seen at his primary care physician's office and the chest x-ray was done which indicated a right lung pneumonia following that the patient was advised to come in to the burst department for further treatment. The patient had a CT angios the chest here in the emergency department that showed no evidence of any pulmonary embolism and there was significant consolidation of the right middle lobe and the right lower lobe consistent with an underlying pneumonia. The ascending aorta measured 4.6 cm in size and the descending aorta measured 4.0 cm in size. The heart was enlarged. There was no pericardial effusion. There is some minimal enlargement of the mediastinal lymph nodes in the right paratracheal lymph node is measuring 1.5 cm. There was also evidence of thoracic spine disease with spondylosis. The patient has no significant leukocytosis. The patient is therapeutic and his PT/INR with an INR of 2.2. Rest of the blood work and electrodes are all within normal limits. The patient was started on broad-spectrum antibiotics. He is currently on a combination of Rocephin and Zithromax. He is also receiving albuterol and Xopenex about treatments around the clock 4 times a day. He is clinically feeling better compared to yesterday. No use of excessive muscle breathing. No pleurisy or hemoptysis at this point. No change in mental status. He does not have frequent bouts of pneumonia. Last bout of pneumonia was back in the 50s when he was quite young. No aspiration. No travel history. The patient is seen again today 02/15/2017 in follow-up on the regular medical floor. He is doing better today as compared to yesterday. Currently sitting up in a chair at the bedside. He continues with a loose nonproductive cough. No chills or night sweats. Maintaining good O2 saturations in the 90s on room air. He is afebrile. No leukocytosis. He is maintained on ceftriaxone and azithromycin. Objective - Vital Signs Vital signs: Vital Signs Temp 97.4 F L 02/15/17 15:00 Pulse 66 02/15/17 15:51 Resp 16 02/15/17 15:37 BP 145/70 02/15/17 15:00 Pulse Ox 94 L 02/15/17 15:00 Intake & Output 02/14/17 02/15/17 02/15/17 18:59 06:59 18:59 Intake Total 220 1200 Balance 220 1200 Intake: Intake, IV Titration 100 Amount cefTRIAXone 1,000 mg In 100 Sodium Chloride 0.9% 50 ml @ 100 mls/hr IVPB Q24HR [facility] Rx#:[id number] Oral 120 1200 Other: Voiding Method Toilet Urinal # Voids 225 1 3 - Exam Head exam was generally normal. There was no scleral icterus or corneal arcus. Mucous membranes were moist.Neck was supple and without jugular venous distension, thyromegaly, or carotid bruits. Carotids were easily palpable bilaterally. There was no adenopathy. Lung sounds are diminished bilaterally and there is some occasional expiratory wheezes and scattered expiratory rhonchi. Crackles are heard in the right lower lung area.Cardiac exam revealed the PMI to be normally situated and sized. The rhythm was regular and no extrasystoles were noted during several minutes of auscultation. The first and second heart sounds were normal and physiologic splitting of the second heart sound was noted. There were no murmurs, rubs, clicks, or gallops. Sternum stable clean and intact.Abdominal exam revealed normal bowel sounds. The abdomen was soft, non-tender, and without masses, organomegaly, or appreciable enlargement of the abdominal aorta.Examination of the extremities revealed easily palpable radial, femoral and pedal pulses. There was no cyanosis, clubbing or edema. - Labs CBC & Chem 7: 02/15/17 09:31 02/15/17 09:31 Labs: Abnormal Lab Results - Last 24 Hours (Table) 02/14/17 02/14/17 02/15/17 Range/Units 17:18 21:18 07:26 Hgb (13.0-17.5) gm/dL Neutrophils # (1.3-7.7) k/uL Lymphocytes # (1.0-4.8) k/uL PT (9.0-12.0) sec BUN (9-20) mg/dL Glucose (74-99) mg/dL POC Glucose (mg/dL) 139 H 194 H 147 H (75-99) mg/dL 02/15/17 02/15/17 02/15/17 Range/Units 09:31 09:31 09:31 Hgb 12.9 L (13.0-17.5) gm/dL Neutrophils # 8.1 H (1.3-7.7) k/uL Lymphocytes # 0.4 L (1.0-4.8) k/uL PT 19.6 H (9.0-12.0) sec BUN 22 H (9-20) mg/dL Glucose 222 H (74-99) mg/dL POC Glucose (mg/dL) (75-99) mg/dL 02/15/17 Range/Units 11:42 Hgb (13.0-17.5) gm/dL Neutrophils # (1.3-7.7) k/uL Lymphocytes # (1.0-4.8) k/uL PT (9.0-12.0) sec BUN (9-20) mg/dL Glucose (74-99) mg/dL POC Glucose (mg/dL) 179 H (75-99) mg/dL Microbiology - Last 24 Hours (Table) 02/13/17 13:56 Blood Culture - Preliminary Blood No Growth after 48 hours 02/14/17 10:55 Urine Culture - Final Urine,Clean Catch Assessment and Plan Plan: Assessment 1 acute community-acquired bilobar/right middle lobe and right lower lobe pneumonia. 2 shortness of breath secondary to above 3 coronary artery disease with previous bypass surgery 4 chronic atrial fibrillation rate is controlled and the patient is fully integrated with warfarin 5 hypertension 6 hyperlipidemia 7 history of pacemaker insertion 8 quite the bypass surgery 9 osteoarthritis Plan The patient was seen and evaluated by Dr. Truong. He is improved clinically. We'll continue with his current medications including antibiotics in the form of ceftriaxone and azithromycin. We'll attempt to obtain a sputum sample. Blood cultures and urine cultures reveal no growth to date. We'll increase his activity as tolerated. We'll continue to follow.
[2017-02-15 17:10] LABS: Glucose,Whole Blood 174 mg/dL (75-99)
[2017-02-15] MEDS: WARFARIN 5 MG TAB PO SCH (17:49)
[2017-02-15] MEDS: ATORVASTATIN 20 MG TAB PO SCH (21:18)
[2017-02-15 21:23] LABS: Glucose,Whole Blood 173 mg/dL (75-99)
[2017-02-15] MEDS: ALPRAZolam 0.25 MG TAB PO PRN (22:47)
[2017-02-16] MEDS: ALPRAZolam 0.25 MG TAB PO PRN (04:12)
[2017-02-16] MEDS: methylPREDNISolone SOD SUCCI 40 MG/ML 1 ML VIAL IV SCH ×4 (06:29→23:55)
[2017-02-16] MEDS: LEVALBUTEROL NEB (CONC) 1.25 MG/0.5 ML AMP INHALATION SCH ×3 (07:36→19:42)
[2017-02-16] MEDS: IPRATROPIUM 0.5 MG/2.5 ML NEBU INHALATION SCH ×4 (07:36→19:42)
[2017-02-16 07:48] LABS: Glucose,Whole Blood 150 mg/dL (75-99)
[2017-02-16] MEDS: INSULIN LISPRO (humaLOG) 300 UNIT/3 ML VIAL SQ SCH ×4 (08:04→21:54)
[2017-02-16] MEDS: amLODIPine 5 MG TAB PO SCH (08:05)
[2017-02-16] MEDS: ASPIRIN 81 MG CHEW PO SCH (08:05)
[2017-02-16] MEDS: PANTOPRAZOLE 40 MG TABLET PO SCH (08:05)
[2017-02-16] MEDS: AZITHROMYCIN 500 MG TAB PO SCH (08:05)
[2017-02-16] MEDS: DIGOXIN 125 MCG TAB PO SCH (08:07)
[2017-02-16] MEDS: METOPROLOL SUCCINATE (ER) 50 MG TAB.ER.24H PO SCH (08:08)
[2017-02-16] MEDS: LISINOPRIL 5 MG TAB PO SCH (08:08)
[2017-02-16] MEDS: FINASTERIDE 5 MG TAB PO SCH (08:08)
--- NOTE | 2017-02-16 08:50 | P.PN ---
Subjective Date of service 02/15/2017. Progress note being dictated for Dr. Skinner. Interval history: This is a 86-year-old gentleman admitted with bilateral pneumonia and multiple other medical issues. Maintained on Zithromax and Rocephin, nebulized bronchodilators and steroids. Breathing improving, persistent loose nonproductive cough. Maintaining O2 sats of 94% on room air. Afebrile, normal WBC. Denies chest pain, palpitations. Objective - Vital Signs Vital signs: Vital Signs Temp 97.4 F L 02/15/17 15:00 Pulse 66 02/15/17 15:51 Resp 16 02/15/17 15:37 BP 145/70 02/15/17 15:00 Pulse Ox 94 L 02/15/17 15:00 Intake & Output 02/14/17 02/15/17 02/15/17 18:59 06:59 18:59 Intake Total 220 1200 Balance 220 1200 Intake: Intake, IV Titration 100 Amount cefTRIAXone 1,000 mg In 100 Sodium Chloride 0.9% 50 ml @ 100 mls/hr IVPB Q24HR [facility] Rx#:[id number] Oral 120 1200 Other: Voiding Method Toilet Urinal # Voids 225 1 3 - Exam PHYSICAL EXAM: VITAL SIGNS: As above GENERAL: [Sitting up in a chair, no acute distress,] HEENT: [Pupils equal conjunctiva normal. Oral mucosa moist] NECK: [Supple, no JVD] RESPIRATORY EFFORT:[ Increased] LUNGS: [Bilateral bases diminished, bilateral inspiratory-more so on the right and expiratory wheezes, scattered rhonchi and bibasilar crackles. Kyphoscoliotic ] CARDIOVASCULAR[ regular S1 and S2, no murmurs rubs or gallops, no edema] GI: [Abdomen soft, nontender, positive bowel sounds. No palpable masses, no guarding, no rigidity] PSYCH: [Alert and oriented -3, mood and affect normal.] NEURO: [No focal deficits, moves all 4 extremities, strength and sensation grossly intact.] - Labs CBC & Chem 7: 02/15/17 09:31 02/15/17 09:31 Labs: Abnormal Lab Results - Last 24 Hours (Table) 02/14/17 02/15/17 02/15/17 Range/Units 21:18 07:26 09:31 Hgb 12.9 L (13.0-17.5) gm/dL Neutrophils # 8.1 H (1.3-7.7) k/uL Lymphocytes # 0.4 L (1.0-4.8) k/uL PT (9.0-12.0) sec BUN (9-20) mg/dL Glucose (74-99) mg/dL POC Glucose (mg/dL) 194 H 147 H (75-99) mg/dL 02/15/17 02/15/17 02/15/17 Range/Units 09:31 09:31 11:42 Hgb (13.0-17.5) gm/dL Neutrophils # (1.3-7.7) k/uL Lymphocytes # (1.0-4.8) k/uL PT 19.6 H (9.0-12.0) sec BUN 22 H (9-20) mg/dL Glucose 222 H (74-99) mg/dL POC Glucose (mg/dL) 179 H (75-99) mg/dL 02/15/17 Range/Units 17:06 Hgb (13.0-17.5) gm/dL Neutrophils # (1.3-7.7) k/uL Lymphocytes # (1.0-4.8) k/uL PT (9.0-12.0) sec BUN (9-20) mg/dL Glucose (74-99) mg/dL POC Glucose (mg/dL) 174 H (75-99) mg/dL Microbiology - Last 24 Hours (Table) 02/13/17 13:56 Blood Culture - Preliminary Blood No Growth after 48 hours 02/14/17 10:55 Urine Culture - Final Urine,Clean Catch Assessment and Plan Plan: 1. Bilateral pneumonia, right greater than left, possibly community-acquired, possibly gram-negative. 2. [ Mild hyperbilirubinemia]. 3. [ COPD]. 4. [ Coumadin monitoring]. 5. [ Leukocytosis]. 6. [ Anemia, normocytic of chronic disease]. 7. [ Chronic persistent atrial fibrillation]. 8. History of pacemaker 9. Essential hypertension 10. Hyperlipidemia 11. CAD, history of [place] and CABG, 12.Family history of nicotine dependence 13. No code, no CPR, no vent 14. Mediastinal lymph nodes, suspect reactive as per pulmonary Plan: Continue on current medication regime, nebulized bronchodilators, steroids , Zithromax, Rocephin, monitoring and symptomatic treatment. Sputum culture pending. Follow closely with pulmonary. Further recommendations to follow. The impression and plan of care has been dictated as directed. : I performed a H&P examination of this patient and discussed the same with the dictator. I agree with the dictator's note. Any additional findings/opinions/ etc. will be noted.
[2017-02-16 09:08] LABS: INR 2.4 (<1.1); Prothrombin Time 23.3 sec (9.0-12.0)
[2017-02-16 09:17] LABS: Basophils % (A) 0 %; CH 29.1; CHCM 33.2; Eosinophils % (A) 0 %; HCT 39.8 % (39.0-53.0); HDW 2.65; HGB 13.1 gm/dL (13.0-17.5); Luc # (Auto) 0.07; Luc % (Auto) 0; Lymphocytes % (A) 5 %; MCH 29.1 pg (25.0-35.0); MCV 88.1 fL (80.0-100.0); Mean Platelet Volume 6.8; Monocytes # (A) 0.5 k/uL (0-1.0); Monocytes % (A) 3 %; Neutrophils # (A) 17.5 k/uL (1.3-7.7); Neutrophils % (A) 92 %; RBC 4.52 m/uL (4.30-5.90); WBC 19.1 k/uL (3.8-10.6); WBC (Perox) 18.07
[2017-02-16 09:35] LABS: Anion Gap 11 mmol/L; Blood Urea Nitrogen 24 mg/dL (9-20); Calcium 9.9 mg/dL (8.4-10.2); Carbon Dioxide 26 mmol/L (22-30); Chloride 101 mmol/L (98-107); Glucose 203 mg/dL (74-99); Non-African American GFR(MDRD) >60 (>60 ml/min/1.73 sqM); Potassium 4.5 mmol/L (3.5-5.1); Sodium 138 mmol/L (137-145)
--- NOTE | 2017-02-16 11:31 | PN ---
DATE OF SERVICE: 02/15/2017 This 86-year-old gentleman who was admitted with bilateral pneumonia, right more than left has been closely monitored. community-acquired pneumonia. Seen and evaluated the patient along with the nurse practitioner. Please refer to nurse practitioner notes and impression documented for further information. TASHA
[2017-02-16 11:49] LABS: Glucose,Whole Blood 136 mg/dL (75-99)
--- NOTE | 2017-02-16 13:38 | P.PN ---
Subjective Principal diagnosis: Pneumonia right middle lobe 86-year-old male patient, known history of coronary artery disease with a previous bypass surgery, along with previous history of chronic atrial fibrillation and hypertension, whereas been an ex-smoker who quit smoking about 40 years ago, presented to his primary care physician's office because of 1 week worth of increased cough, chest congestion, shortness of breath, and wheezing. The patient was seen at his primary care physician's office and the chest x-ray was done which indicated a right lung pneumonia following that the patient was advised to come in to the burst department for further treatment. The patient had a CT angios the chest here in the emergency department that showed no evidence of any pulmonary embolism and there was significant consolidation of the right middle lobe and the right lower lobe consistent with an underlying pneumonia. The ascending aorta measured 4.6 cm in size and the descending aorta measured 4.0 cm in size. The heart was enlarged. There was no pericardial effusion. There is some minimal enlargement of the mediastinal lymph nodes in the right paratracheal lymph node is measuring 1.5 cm. There was also evidence of thoracic spine disease with spondylosis. The patient has no significant leukocytosis. The patient is therapeutic and his PT/INR with an INR of 2.2. Rest of the blood work and electrodes are all within normal limits. The patient was started on broad-spectrum antibiotics. He is currently on a combination of Rocephin and Zithromax. He is also receiving albuterol and Xopenex about treatments around the clock 4 times a day. He is clinically feeling better compared to yesterday. No use of excessive muscle breathing. No pleurisy or hemoptysis at this point. No change in mental status. He does not have frequent bouts of pneumonia. Last bout of pneumonia was back in the 50s when he was quite young. No aspiration. No travel history. The patient is seen again today 02/15/2017 in follow-up on the regular medical floor. He is doing better today as compared to yesterday. Currently sitting up in a chair at the bedside. He continues with a loose nonproductive cough. No chills or night sweats. Maintaining good O2 saturations in the 90s on room air. He is afebrile. No leukocytosis. He is maintained on ceftriaxone and azithromycin. The patient is seen again today 02/16/2017 in follow-up on the regular medical floor. He is awake and alert in no acute distress. He's been up ambulating in the room without any distress. Breathing easier today as compared to yesterday. He has a loose nonproductive cough. Sputum sample is pending. He remains on azithromycin and ceftriaxone. Objective - Vital Signs Vital signs: Vital Signs Temp 97.4 F L 02/16/17 07:00 Pulse 74 02/16/17 11:48 Resp 16 02/16/17 07:00 BP 143/62 02/16/17 07:00 Pulse Ox 92 L 02/16/17 07:00 Intake & Output 02/15/17 02/16/17 02/16/17 18:59 06:59 18:59 Intake Total 1800 400 Balance 1800 400 Intake: Oral 1800 400 Other: Voiding Method Toilet Toilet # Voids 1 2 1 # Bowel Movements 1 - Exam Head exam was generally normal. There was no scleral icterus or corneal arcus. Mucous membranes were moist.Neck was supple and without jugular venous distension, thyromegaly, or carotid bruits. Carotids were easily palpable bilaterally. There was no adenopathy. Lung sounds are diminished bilaterally and there is some occasional expiratory wheezes and scattered expiratory rhonchi. Crackles are heard in the right lower lung area.Cardiac exam revealed the PMI to be normally situated and sized. The rhythm was regular and no extrasystoles were noted during several minutes of auscultation. The first and second heart sounds were normal and physiologic splitting of the second heart sound was noted. There were no murmurs, rubs, clicks, or gallops. Sternum stable clean and intact.Abdominal exam revealed normal bowel sounds. The abdomen was soft, non-tender, and without masses, organomegaly, or appreciable enlargement of the abdominal aorta.Examination of the extremities revealed easily palpable radial, femoral and pedal pulses. There was no cyanosis, clubbing or edema. - Labs CBC & Chem 7: 02/16/17 08:44 02/16/17 08:44 Labs: Abnormal Lab Results - Last 24 Hours (Table) 02/15/17 02/15/17 02/16/17 Range/Units 17:06 21:07 07:30 WBC (3.8-10.6) k/uL Neutrophils # (1.3-7.7) k/uL PT (9.0-12.0) sec BUN (9-20) mg/dL Glucose (74-99) mg/dL POC Glucose (mg/dL) 174 H 173 H 150 H (75-99) mg/dL 02/16/17 02/16/17 02/16/17 Range/Units 08:44 08:44 08:44 WBC 19.1 H (3.8-10.6) k/uL Neutrophils # 17.5 H (1.3-7.7) k/uL PT 23.3 H (9.0-12.0) sec BUN 24 H (9-20) mg/dL Glucose 203 H (74-99) mg/dL POC Glucose (mg/dL) (75-99) mg/dL 02/16/17 Range/Units 11:37 WBC (3.8-10.6) k/uL Neutrophils # (1.3-7.7) k/uL PT (9.0-12.0) sec BUN (9-20) mg/dL Glucose (74-99) mg/dL POC Glucose (mg/dL) 136 H (75-99) mg/dL Microbiology - Last 24 Hours (Table) 02/15/17 11:30 Gram Stain - Preliminary Sputum 02/13/17 13:56 Blood Culture - Preliminary Blood No Growth after 48 hours 02/14/17 10:55 Urine Culture - Final Urine,Clean Catch Assessment and Plan Plan: Assessment 1 acute community-acquired bilobar/right middle lobe and right lower lobe pneumonia. 2 shortness of breath secondary to above 3 coronary artery disease with previous bypass surgery 4 chronic atrial fibrillation rate is controlled and the patient is fully integrated with warfarin 5 hypertension 6 hyperlipidemia 7 history of pacemaker insertion 8 quite the bypass surgery 9 osteoarthritis Plan The patient was seen and evaluated by Dr. Truong. He is improved clinically. We'll continue with his current medications including antibiotics in the form of ceftriaxone and azithromycin. Sputum sample is pending. Blood cultures and urine cultures reveal no growth to date. We'll increase his activity as tolerated. We'll continue to follow.
[2017-02-16 16:51] LABS: Glucose,Whole Blood 160 mg/dL (75-99)
[2017-02-16] MEDS: WARFARIN 5 MG TAB PO SCH (18:06)
--- NOTE | 2017-02-16 19:14 | P.PN ---
Subjective Date of service 02/15/2017. Progress note being dictated for Dr. Skinner. Interval history: This is a 86-year-old gentleman admitted with bilateral pneumonia and multiple other medical issues. Maintained on Zithromax and Rocephin, nebulized bronchodilators and steroids. Significant clinical improvement, O2 weaned off, maintaining O2 sats of 92% on room air. Ambulating , tolerating increase in exertion well. Loose nonproductive cough persists. Afebrile. Denies chest pain, palpitations. Objective - Vital Signs Vital signs: Vital Signs Temp 96.2 F L 02/16/17 15:00 Pulse 70 02/16/17 15:51 Resp 16 02/16/17 15:00 BP 152/66 02/16/17 15:00 Pulse Ox 92 L 02/16/17 15:00 Intake & Output 02/15/17 02/16/17 02/16/17 18:59 06:59 18:59 Intake Total 1800 400 600 Balance 1800 400 600 Intake: Oral 1800 400 600 Other: Voiding Method Toilet Toilet # Voids 1 2 2 # Bowel Movements 1 - Exam PHYSICAL EXAM: VITAL SIGNS: As above GENERAL: [Sitting up in a chair, no acute distress,] HEENT: [Pupils equal conjunctiva normal. Oral mucosa moist] NECK: [Supple, no JVD] RESPIRATORY EFFORT:[ Increased] LUNGS: [Improving air entry ,bilateral bases diminished, occasional fine expiratory wheezes, scattered rhonchi and bibasilar crackles. Kyphoscoliotic] CARDIOVASCULAR[ regular S1 and S2, no murmurs rubs or gallops, no edema] GI: [Abdomen soft, nontender, positive bowel sounds. No palpable masses, no guarding, no rigidity] PSYCH: [Alert and oriented -3, mood and affect normal.] NEURO: [No focal deficits, moves all 4 extremities, strength and sensation grossly intact.] - Labs CBC & Chem 7: 02/16/17 08:44 02/16/17 08:44 Labs: Abnormal Lab Results - Last 24 Hours (Table) 02/15/17 02/16/17 02/16/17 Range/Units 21:07 07:30 08:44 WBC 19.1 H (3.8-10.6) k/uL Neutrophils # 17.5 H (1.3-7.7) k/uL PT (9.0-12.0) sec BUN (9-20) mg/dL Glucose (74-99) mg/dL POC Glucose (mg/dL) 173 H 150 H (75-99) mg/dL 02/16/17 02/16/17 02/16/17 Range/Units 08:44 08:44 11:37 WBC (3.8-10.6) k/uL Neutrophils # (1.3-7.7) k/uL PT 23.3 H (9.0-12.0) sec BUN 24 H (9-20) mg/dL Glucose 203 H (74-99) mg/dL POC Glucose (mg/dL) 136 H (75-99) mg/dL 02/16/17 Range/Units 16:49 WBC (3.8-10.6) k/uL Neutrophils # (1.3-7.7) k/uL PT (9.0-12.0) sec BUN (9-20) mg/dL Glucose (74-99) mg/dL POC Glucose (mg/dL) 160 H (75-99) mg/dL Microbiology - Last 24 Hours (Table) 02/13/17 13:56 Blood Culture - Preliminary Blood No Growth after 72 hours 02/15/17 11:30 Gram Stain - Preliminary Sputum Assessment and Plan Plan: 1. Bilateral pneumonia, right greater than left, possibly community-acquired, possibly gram-negative. 2. [ Mild hyperbilirubinemia]. 3. [ COPD]. 4. [ Coumadin monitoring]. 5. [ Leukocytosis]. 6. [ Anemia, normocytic of chronic disease]. 7. [ Chronic persistent atrial fibrillation]. 8. History of pacemaker 9. Essential hypertension 10. Hyperlipidemia 11. CAD, history of FL and CABG, 12.Family history of nicotine dependence 13. No code, no CPR, no vent 14. Mediastinal lymph nodes, suspect reactive as per pulmonary Plan: Continue on current medication regime, nebulized bronchodilators, steroids , Zithromax, Rocephin, monitoring and symptomatic treatment. Sputum culture pending. Chest x-ray in a.m. discharge planning in progress pending pulmonary clearance. Further recommendations to follow. The impression and plan of care has been dictated as directed. : I performed a H&P examination of this patient and discussed the same with the dictator. I agree with the dictator's note. Any additional findings/opinions/ etc. will be noted.
[2017-02-16] MEDS: ATORVASTATIN 20 MG TAB PO SCH (20:16)
[2017-02-16 21:53] LABS: Glucose,Whole Blood 197 mg/dL (75-99)
--- NOTE | 2017-02-16 23:01 | PN ---
DATE OF SERVICE: 02/15/2017 This 86-year-old gentleman was admitted with multilobar pneumonia is being closely monitored. Seen and evaluated the patient along with nurse practitioner. Please refer to the nurse practitioner notes and impression documented as a scribe for further information. Further recommendations to follow.
[2017-02-17] MEDS: methylPREDNISolone SOD SUCCI 40 MG/ML 1 ML VIAL IV SCH ×2 (05:21→12:26)
[2017-02-17 07:28] LABS: Glucose,Whole Blood 153 mg/dL (75-99)
--- NOTE | 2017-02-17 07:30 | XR ---
EXAMINATION TYPE: XR chest 2V DATE OF EXAM: 02/17/2017 COMPARISON: CTA chest and chest x-ray from 4 days ago. HISTORY: Pneumonia progress study. TECHNIQUE: Frontal and lateral views of the chest are obtained. FINDINGS: There is chronic emphysematous change with persistent patchy right suprahilar atelectasis and/or infiltrate redemonstrated. Left lung remains clear. No large pleural effusion or pneumothorax is seen bilaterally. Sternal wires are redemonstrated. The cardiac silhouette size remains enlarged with dual lead pacemaker and atherosclerotic and ectatic thoracic aorta. The osseous structures are intact. IMPRESSION: Overall stable findings, Chronic emphysematous change and cardiomegaly with persistent p atchy right suprahilar infiltrate and/or atelectasis. No new infiltrate is seen.
[2017-02-17 07:45] VITALS: BP 148/61; PULSE 54; RESP 16; TEMP 97.9
[2017-02-17] MEDS: INSULIN LISPRO (humaLOG) 300 UNIT/3 ML VIAL SQ SCH ×2 (08:02→12:27)
[2017-02-17] MEDS: PANTOPRAZOLE 40 MG TABLET PO SCH (08:02)
[2017-02-17 09:23] LABS: Anion Gap 10 mmol/L; Basophils % (A) 0 %; Blood Urea Nitrogen 25 mg/dL (9-20); CH 29.2; CHCM 32.3; Carbon Dioxide 29 mmol/L (22-30); Chloride 101 mmol/L (98-107); Eosinophils % (A) 0 %; Glucose 147 mg/dL (74-99); HCT 42.3 % (39.0-53.0); HDW 2.43; HGB 13.6 gm/dL (13.0-17.5); Luc # (Auto) 0.03; Luc % (Auto) 0; Lymphocytes # (A) 0.7 k/uL (1.0-4.8); Lymphocytes % (A) 5 %; MCH 29.1 pg (25.0-35.0); MCV 90.9 fL (80.0-100.0); Monocytes # (A) 0.2 k/uL (0-1.0); Monocytes % (A) 2 %; Neutrophils # (A) 12.2 k/uL (1.3-7.7); Neutrophils % (A) 93 %; Non-African American GFR(MDRD) >60 (>60 ml/min/1.73 sqM); Potassium 4.8 mmol/L (3.5-5.1); RBC 4.66 m/uL (4.30-5.90); RDW 13.2 % (11.5-15.5); Sodium 140 mmol/L (137-145); WBC 13.1 k/uL (3.8-10.6); WBC (Perox) 13.39
[2017-02-17] MEDS: IPRATROPIUM 0.5 MG/2.5 ML NEBU INHALATION SCH ×2 (09:29→14:13)
[2017-02-17] MEDS: LEVALBUTEROL NEB (CONC) 1.25 MG/0.5 ML AMP INHALATION SCH ×2 (09:30→14:14)
[2017-02-17 09:32] LABS: INR 2.5 (<1.1); Prothrombin Time 24.2 sec (9.0-12.0)
[2017-02-17] MEDS: METOPROLOL SUCCINATE (ER) 50 MG TAB.ER.24H PO SCH (09:37)
[2017-02-17] MEDS: DIGOXIN 125 MCG TAB PO SCH (09:37)
[2017-02-17] MEDS: AZITHROMYCIN 500 MG TAB PO SCH (09:37)
[2017-02-17] MEDS: LISINOPRIL 5 MG TAB PO SCH (09:37)
[2017-02-17] MEDS: ASPIRIN 81 MG CHEW PO SCH (09:37)
[2017-02-17] MEDS: FINASTERIDE 5 MG TAB PO SCH (09:38)
[2017-02-17] MEDS: amLODIPine 5 MG TAB PO SCH (11:08)
[2017-02-17 11:48] LABS: Glucose,Whole Blood 160 mg/dL (75-99)
--- NOTE | 2017-02-17 13:52 | P.PN ---
Subjective Principal diagnosis: Pneumonia right middle lobe 86-year-old male patient, known history of coronary artery disease with a previous bypass surgery, along with previous history of chronic atrial fibrillation and hypertension, whereas been an ex-smoker who quit smoking about 40 years ago, presented to his primary care physician's office because of 1 week worth of increased cough, chest congestion, shortness of breath, and wheezing. The patient was seen at his primary care physician's office and the chest x-ray was done which indicated a right lung pneumonia following that the patient was advised to come in to the burst department for further treatment. The patient had a CT angios the chest here in the emergency department that showed no evidence of any pulmonary embolism and there was significant consolidation of the right middle lobe and the right lower lobe consistent with an underlying pneumonia. The ascending aorta measured 4.6 cm in size and the descending aorta measured 4.0 cm in size. The heart was enlarged. There was no pericardial effusion. There is some minimal enlargement of the mediastinal lymph nodes in the right paratracheal lymph node is measuring 1.5 cm. There was also evidence of thoracic spine disease with spondylosis. The patient has no significant leukocytosis. The patient is therapeutic and his PT/INR with an INR of 2.2. Rest of the blood work and electrodes are all within normal limits. The patient was started on broad-spectrum antibiotics. He is currently on a combination of Rocephin and Zithromax. He is also receiving albuterol and Xopenex about treatments around the clock 4 times a day. He is clinically feeling better compared to yesterday. No use of excessive muscle breathing. No pleurisy or hemoptysis at this point. No change in mental status. He does not have frequent bouts of pneumonia. Last bout of pneumonia was back in the 50s when he was quite young. No aspiration. No travel history. The patient is seen again today 02/15/2017 in follow-up on the regular medical floor. He is doing better today as compared to yesterday. Currently sitting up in a chair at the bedside. He continues with a loose nonproductive cough. No chills or night sweats. Maintaining good O2 saturations in the 90s on room air. He is afebrile. No leukocytosis. He is maintained on ceftriaxone and azithromycin. The patient is seen again today 02/16/2017 in follow-up on the regular medical floor. He is awake and alert in no acute distress. He's been up ambulating in the room without any distress. Breathing easier today as compared to yesterday. He has a loose nonproductive cough. Sputum sample is pending. He remains on azithromycin and ceftriaxone. The patient is seen again today 02/17/2017 in follow-up on the regular medical floor. He's been up ambulating and doing well. He denies any dyspnea on exertion. He has a nonproductive cough. Mostly subsided. No shortness of breath. He is anxious to go home. Objective - Vital Signs Vital signs: Vital Signs Temp 97.9 F 02/17/17 07:00 Pulse 54 L 02/17/17 07:00 Resp 16 02/17/17 07:00 BP 148/61 02/17/17 07:00 Pulse Ox 92 L 02/17/17 07:00 Intake & Output 02/16/17 02/17/17 02/17/17 18:59 06:59 18:59 Intake Total 600 Balance 600 Intake: Oral 600 Other: Voiding Method Toilet # Voids 2 1 # Bowel Movements 1 - Exam Head exam was generally normal. There was no scleral icterus or corneal arcus. Mucous membranes were moist.Neck was supple and without jugular venous distension, thyromegaly, or carotid bruits. Carotids were easily palpable bilaterally. There was no adenopathy. Lung sounds are diminished bilaterally and there is some occasional expiratory wheezes and scattered expiratory rhonchi. Crackles are heard in the right lower lung area.Cardiac exam revealed the PMI to be normally situated and sized. The rhythm was regular and no extrasystoles were noted during several minutes of auscultation. The first and second heart sounds were normal and physiologic splitting of the second heart sound was noted. There were no murmurs, rubs, clicks, or gallops. Sternum stable clean and intact.Abdominal exam revealed normal bowel sounds. The abdomen was soft, non-tender, and without masses, organomegaly, or appreciable enlargement of the abdominal aorta.Examination of the extremities revealed easily palpable radial, femoral and pedal pulses. There was no cyanosis, clubbing or edema. - Labs CBC & Chem 7: 02/17/17 08:29 02/17/17 08:29 Labs: Abnormal Lab Results - Last 24 Hours (Table) 02/16/17 02/16/17 02/17/17 Range/Units 16:49 21:52 07:24 WBC (3.8-10.6) k/uL Neutrophils # (1.3-7.7) k/uL Lymphocytes # (1.0-4.8) k/uL PT (9.0-12.0) sec BUN (9-20) mg/dL Glucose (74-99) mg/dL POC Glucose (mg/dL) 160 H 197 H 153 H (75-99) mg/dL 02/17/17 02/17/17 02/17/17 Range/Units 08:29 08:29 08:29 WBC 13.1 H (3.8-10.6) k/uL Neutrophils # 12.2 H (1.3-7.7) k/uL Lymphocytes # 0.7 L (1.0-4.8) k/uL PT 24.2 H (9.0-12.0) sec BUN 25 H (9-20) mg/dL Glucose 147 H (74-99) mg/dL POC Glucose (mg/dL) (75-99) mg/dL 02/17/17 Range/Units 11:37 WBC (3.8-10.6) k/uL Neutrophils # (1.3-7.7) k/uL Lymphocytes # (1.0-4.8) k/uL PT (9.0-12.0) sec BUN (9-20) mg/dL Glucose (74-99) mg/dL POC Glucose (mg/dL) 160 H (75-99) mg/dL Microbiology - Last 24 Hours (Table) 02/15/17 11:30 Gram Stain - Final Sputum Sputum Culture - Final 02/13/17 13:56 Blood Culture - Preliminary Blood No Growth after 72 hours Assessment and Plan Plan: Assessment 1 acute community-acquired bilobar/right middle lobe and right lower lobe pneumonia. 2 shortness of breath secondary to above 3 coronary artery disease with previous bypass surgery 4 chronic atrial fibrillation rate is controlled and the patient is fully integrated with warfarin 5 hypertension 6 hyperlipidemia 7 history of pacemaker insertion 8 quite the bypass surgery 9 osteoarthritis Plan The patient was seen and evaluated by Dr. Truong. He is improved clinically. He is cleared for discharge from the pulmonary standpoint. Complete his course of antibiotics. He could follow-up in our office in 1-2 weeks' time. We could repeat a chest x-ray done. He does are both encouraged to call sooner with any recurrence of symptoms or other questions or concerns.
--- NOTE | 2017-02-18 15:13 | DS ---
DATE OF ADMISSION: 02/13/2017 DATE OF DISCHARGE: 02/17/2017 FINAL DIAGNOSES: 1. Bilateral pneumonia right more than the left, possibly community acquired, possibly gram-negative, improving. 2. Mild hyperbilirubinemia. 3. Chronic obstructive pulmonary disease. 4. Coumadin monitoring. 5. Leukocytosis. 6. Anemia, normocytic anemia of chronic disease. 7. Chronic persistent atrial fibrillation. 8. History of pacemaker. 9. History of hypertension. 10. History of hyperlipidemia. 11. History of coronary artery disease. 12. 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 13. Mediastinal lymph node, possibly reactive per Pulmonary. 14. NO CODE, NO CPR, NO VENT. DISCHARGE DISPOSITION: The patient will be discharged in a stable condition with guarded prognosis. Dr. Truong cleared the patient for discharge. The patient will be discharged. HISTORY OF PRESENT ILLNESS: This 86-year-old gentleman being followed by Dr. Ricci in the outpatient setting admitted with bilateral pneumonia, right more than the left. The patient was given antibiotics and bronchodilators and steroids. Patient improved significantly. Chest x-ray was noted. Chest CT was also noted. No evidence of pulmonary embolism was noted. On exam, vitals are stable. CARDIOVASCULAR: S1, S2. RESPIRATORY: A few rhonchi. ABDOMEN: Soft. NERVOUS SYSTEM: No focal deficits. Patient improved significantly clinically. DISCHARGE ADVICE: 1. Diet is cardiac. 2. Activity limited until follow up. 3. Follow up with Dr. Ricci in 2 to 3 days. 4. Follow with Dr. Truong as recommended. MEDICATIONS: 1. Albuterol 2 puffs q.i.d. and p.r.n. 2. Norvasc 5 mg p.o. daily. 3. Ecotrin 81 mg p.o. daily. 4. Ceftin 500 mg p.o. b.i.d. for 4 days. 5. Lanoxin 125 mcg p.o. daily. 6. Proscar 5 mg p.o. daily. 7. Zestril 5 mg p.o. daily. 8. Toprol-XL 50 mg daily. 9. Prilosec 20 mg daily. 10. Zocor 40 mg. 11. Ultram 50 mg t.i.d. p.r.n. 12. Coumadin 5 mg p.o. q.h.s. Follow up labs of CBC, BMP, PT, INR with Dr. Ricci in 2 to 3 days.
== END 2017-02-17 14:41 | disposition home or self-care (01) | DRG 190 ==
LOC: EC 12:46 → 4MS4W 14:53
PROVIDERS: ADMIT Internal Medicine; ATTEND Internal Medicine
DX: J44.0 Chronic obstructive pulmonary disease with (acute) lower respiratory infection (principal); J18.9 Pneumonia, unspecified organism; I48.1 Persistent atrial fibrillation; I48.2 Chronic atrial fibrillation; I11.9 Hypertensive heart disease without heart failure; D63.8 Anemia in other chronic diseases classified elsewhere; R17 Unspecified jaundice; E78.5 Hyperlipidemia, unspecified; I25.10 Atherosclerotic heart disease of native coronary artery without angina pectoris; I25.2 Old myocardial infarction; M19.90 Unspecified osteoarthritis, unspecified site; Z79.01 Long term (current) use of anticoagulants; Z79.52 Long term (current) use of systemic steroids; Z79.82 Long term (current) use of aspirin; Z79.899 Other long term (current) drug therapy; Z80.7 Family history of other malignant neoplasms of lymphoid, hematopoietic and related tissues; Z87.891 Personal history of nicotine dependence; Z90.49 Acquired absence of other specified parts of digestive tract; Z95.0 Presence of cardiac pacemaker; Z95.1 Presence of aortocoronary bypass graft
CPT/HCPCS: 36415; 71020; 71275; 80048; 80053; 81001; 82550; 82553; 83036; 83605; 83880; 84484; 85025; 85379; 85610; 85730; 87040; 87070; 87086; 87205; 93005; 94640; 94760; 96365; 99285

== ENCOUNTER → 2017-02-13 | Outpatient (CLI) | payer MEDICARE ==
--- NOTE | 2017-02-13 12:37 | XR ---
EXAMINATION TYPE: XR chest 2V DATE OF EXAM: 02/13/2017 COMPARISON: Prior chest x-ray 06/07/2016 HISTORY: Cough TECHNIQUE: Frontal and lateral views of the chest are obtained. FINDINGS: There is no pleural effusion, or pneumothorax seen. Airspace disease is thought to be pre sent in the right upper lobe, abnormal increased density is noted. The cardiac silhouette size is sta ble, heart is enlarged. There are prominent lung volumes. Intracardiac leads are stable in the righ t atrium and ventricle. Patient is post median sternotomy. The osseous structures are intact. IMPRESSION: Findings may represent a right upper lobe pneumonia. Follow-up to resolution, consider c hest CT as indicated.
== END | disposition home or self-care (01) ==
LOC: RADXRMAIN 12:00
PROVIDERS: ATTEND Internal Medicine
DX: J06.9 Acute upper respiratory infection, unspecified (principal)
CPT/HCPCS: 71020

== ENCOUNTER → 2017-02-19 | Outpatient (CLI) | payer MEDICARE ==
[2017-02-19 12:05] LABS: Basophils % (A) 0 %; CH 29.3; CHCM 32.9; Eosinophils # (A) 0.1 k/uL (0-0.7); Eosinophils % (A) 0 %; HCT 44.1 % (39.0-53.0); HDW 2.61; HGB 14.4 gm/dL (13.0-17.5); Luc # (Auto) 0.13; Luc % (Auto) 1; Lymphocytes # (A) 1.4 k/uL (1.0-4.8); Lymphocytes % (A) 12 %; MCH 29.3 pg (25.0-35.0); MCHC 32.8 g/dL (31.0-37.0); MCV 89.4 fL (80.0-100.0); Mean Platelet Volume 6.6; Monocytes # (A) 0.6 k/uL (0-1.0); Monocytes % (A) 5 %; Neutrophils # (A) 9.7 k/uL (1.3-7.7); Neutrophils % (A) 82 %; RBC 4.93 m/uL (4.30-5.90); RDW 12.9 % (11.5-15.5); WBC 11.9 k/uL (3.8-10.6); WBC (Perox) 12.42
[2017-02-19 12:18] LABS: Anion Gap 12 mmol/L; Blood Urea Nitrogen 31 mg/dL (9-20); Calcium 9.2 mg/dL (8.4-10.2); Carbon Dioxide 25 mmol/L (22-30); Chloride 100 mmol/L (98-107); Glucose 96 mg/dL (74-99); Non-African American GFR(MDRD) 59 (>60 ml/min/1.73 sqM); Potassium 4.4 mmol/L (3.5-5.1); Sodium 137 mmol/L (137-145)
== END ==
LOC: LABWHC1 11:31
PROVIDERS: ATTEND Hospitalist
DX: J18.9 Pneumonia, unspecified organism (principal)
CPT/HCPCS: 36415; 80048; 85025

== ENCOUNTER → 2017-03-14 | Outpatient (CLI) | payer MEDICARE ==
[2017-03-14 13:06] LABS: INR 1.7 (<1.1); Prothrombin Time 16.5 sec (9.0-12.0)
== END | disposition home or self-care (01) ==
LOC: LABWHC1 12:05
PROVIDERS: ATTEND Internal Medicine
DX: I48.2 Chronic atrial fibrillation (principal)
CPT/HCPCS: 36415; 85610

== ENCOUNTER → 2017-04-23 | Outpatient (CLI) | payer MEDICARE ==
--- NOTE | 2017-04-23 11:43 | XR ---
EXAMINATION TYPE: XR chest 2V DATE OF EXAM: 04/23/2017 COMPARISON: 02/17/2017 HISTORY: Shortness of breath TECHNIQUE: Frontal and lateral views of the chest are obtained. FINDINGS: Chronic subsegmental platelike peripheral right upper lung atelectasis is present, improve d from the prior exam. There is tortuosity of the descending thoracic aorta, stable from the prior ex am. Heart is mildly enlarged with a dual lead left-sided cardiac device and midline sternotomy wires. Dehiscence of the most cephalad and most caudal sternotomy wires is noted to be unchanged. No new focal consolidation, pleural effusion, or pneumothorax is identified. Pulmonary hyperinflation is also stable from the prior as well as biapical lucency. Degenerative changes of the thoracic spin e are noted. IMPRESSION: 1. No acute cardiac pulmonary process. 2. Right upper lung platelike atelectasis, slightly improved from the prior exam. 3. Stable sequela of COPD.
[2017-04-23 12:27] LABS: INR 3.2 (<1.2)
== END | disposition home or self-care (01) ==
LOC: LABWHC1 10:57
PROVIDERS: ATTEND Internal Medicine
DX: J44.9 Chronic obstructive pulmonary disease, unspecified (principal); J98.11 Atelectasis; I48.1 Persistent atrial fibrillation
CPT/HCPCS: 36415; 71020; 85610

== ENCOUNTER → 2017-05-17 | Outpatient (CLI) | payer MEDICARE ==
[2017-05-17 08:59] LABS: Basophils # (A) 0.1 k/uL (0-0.2); Basophils % (A) 1 %; CH 30.3; Eosinophils # (A) 0.3 k/uL (0-0.7); Eosinophils % (A) 5 %; HCT 43.5 % (39.0-53.0); HDW 2.73; HGB 14.1 gm/dL (13.0-17.5); Luc # (Auto) 0.13; Luc % (Auto) 2; Lymphocytes # (A) 1.4 k/uL (1.0-4.8); Lymphocytes % (A) 21 %; MCHC 32.4 g/dL (31.0-37.0); MCV 89.6 fL (80.0-100.0); Mean Platelet Volume 7.5; Monocytes # (A) 0.4 k/uL (0-1.0); Monocytes % (A) 6 %; Neutrophils # (A) 4.6 k/uL (1.3-7.7); Neutrophils % (A) 66 %; RBC 4.85 m/uL (4.30-5.90); RDW 15.4 % (11.5-15.5); WBC (Perox) 7.15
[2017-05-17 09:13] LABS: INR 3.6 (<1.2); Prothrombin Time 35.4 sec (9.0-12.0)
== END | disposition home or self-care (01) ==
LOC: LABWHC1 08:30
PROVIDERS: ATTEND Internal Medicine
DX: D68.4 Acquired coagulation factor deficiency (principal); J40 Bronchitis, not specified as acute or chronic
CPT/HCPCS: 36415; 85025; 85610

== ENCOUNTER → 2017-05-24 | Outpatient (CLI) | payer MEDICARE ==
[2017-05-24 09:13] LABS: INR 1.6 (<1.2); Prothrombin Time 15.6 sec (9.0-12.0)
== END | disposition home or self-care (01) ==
LOC: LABWHC1 08:43
PROVIDERS: ATTEND Internal Medicine
DX: I48.2 Chronic atrial fibrillation (principal)
CPT/HCPCS: 36415; 85610

== ENCOUNTER → 2017-06-08 | Outpatient (CLI) | payer MEDICARE ==
[2017-06-08 11:35] LABS: Prothrombin Time 19.4 sec (9.0-12.0)
== END | disposition home or self-care (01) ==
LOC: LABWHC1 10:51
PROVIDERS: ATTEND Internal Medicine
DX: I48.2 Chronic atrial fibrillation (principal)
CPT/HCPCS: 36415; 85610

== ENCOUNTER 2017-08-16 13:05 | Day surgery (SDC) | payer MEDICARE ==
[2017-08-15 10:08] VITALS: BMI 31.1
[~2017-08-16 13:05] MED LIST: SODIUM CHLORIDE 0.9% 1,000 ML IV SCH
[2017-08-16 13:30] VITALS: PULSE 54
[2017-08-16] MEDS ORDERED: IODIXANOL 320 MG/ML 100 ML IV ONE ×2 (13:49→13:50)
[2017-08-16 14:13] LABS: INR 1.7 (<1.2); Prothrombin Time 15.7 sec (9.0-12.0)
[2017-08-16 15:06] VITALS: BP 155/72; RESP 18
--- NOTE | 2017-08-30 11:43 | P.PCN ---
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 Mild to moderate stenosis noted Plan Proceed with upgrade to a UAT TESTER device as planned for management of cardio myopathy secondary to 100% RV pacing and underlying bradycardia secondary to complete heart block
== END 2017-08-16 14:00 | disposition home or self-care (01) ==
LOC: CATHEP 13:05
PROVIDERS: ATTEND Internal Medicine Clinical Cardiac Electrophysiology
DX: I87.1 Compression of vein (principal); I25.5 Ischemic cardiomyopathy; I44.2 Atrioventricular block, complete; I11.0 Hypertensive heart disease with heart failure; I50.22 Chronic systolic (congestive) heart failure; E78.5 Hyperlipidemia, unspecified; I48.91 Unspecified atrial fibrillation; R00.1 Bradycardia, unspecified; Z82.49 Family history of ischemic heart disease and other diseases of the circulatory system; Z79.01 Long term (current) use of anticoagulants; Z79.82 Long term (current) use of aspirin; Z79.899 Other long term (current) drug therapy; Z95.1 Presence of aortocoronary bypass graft; Z95.0 Presence of cardiac pacemaker; Z87.891 Personal history of nicotine dependence
CPT/HCPCS: 36005; 75820; 85610; Q9967

== ENCOUNTER → 2017-12-03 | Outpatient (CLI) | payer MEDICARE ==
--- NOTE | 2017-12-03 12:54 | XR ---
EXAMINATION TYPE: XR shoulder complete RT, XR humerus RT DATE OF EXAM: 12/03/2017 CLINICAL HISTORY: Right shoulder and humeral pain after fall injury 3 days ago. TECHNIQUE: Three views of the right shoulder are obtained. 2 views right humerus are acquired. COMPARISON: CT chest February 13, 2017. FINDINGS: There is no acute fracture/dislocation evident in the right shoulder. The acromioclavicul ar and glenohumeral joint spaces appear within normal limits. The visualized ribs are intact and unr emarkable. There is partial visualization of sternal wires and mediastinal clips. Entire right humerus is abnormal appearance with mottling or multiple lucent areas that appear to be involving the cortex and central medullary areas. Visualized elbow shows no acute fracture or disloc ation. Overlying soft tissue is unremarkable. IMPRESSION: There is marked abnormal appearance to the right humerus, to some extent there was abnor mality in retrospect of the humeral head on chest CT February 13, 2017. Differential would include Paget's tumor but presence of medullary involvement makes this less likely. Other primary bone tumor such as lymphoma need to be considered. Visualized portion of the ribs, scapula, clavicle, and right forearm do not show suspicious lesions to suggest metastatic malignancy. Orthopedic oncology referral advise d. A Yellow level critical message alert has been initiated for Quinn Ricci MD via the [employer] Critical Results System on 12/03/2017 12:52 PM. This message alert has been sent to Quinn espitia MD via the preferences provided by the clinician for the receipt of Radiology Critical Findings. Message ID [id number].
--- NOTE | 2017-12-03 13:08 | XR ---
EXAMINATION TYPE: XR chest 2V DATE OF EXAM: 12/03/2017 COMPARISON: Chest x-ray April 23, 2017. CTA chest February 13, 2017. HISTORY: Right-sided chest pain after fall injury 3 days ago. TECHNIQUE: Frontal and lateral views of the chest are obtained. FINDINGS: There is chronic parenchymal change without suspicious new focal air space opacity, pleura l effusion, or pneumothorax seen. The cardiac silhouette size remains enlarged with dual lead pacema ker. Overlying sternal wires are redemonstrated several which are broken The osseous structures are intact. Cholecystectomy clips are redemonstrated on lateral view. IMPRESSION: Chronic changes and cardiomegaly without acute cardiopulmonary process.
== END | disposition home or self-care (01) ==
LOC: RADXRMAIN 11:28
PROVIDERS: ATTEND Internal Medicine
DX: I51.7 Cardiomegaly (principal); I48.1 Persistent atrial fibrillation; M25.511 Pain in right shoulder; M79.621 Pain in right upper arm
CPT/HCPCS: 71046

== ENCOUNTER → 2018-01-14 | Outpatient (CLI) | payer MEDICARE ==
[2018-01-14 11:54] LABS: HCT 40.2 % (39.0-53.0); HGB 13.3 gm/dL (13.0-17.5); MCH 28.6 pg (25.0-35.0); MCHC 33.1 g/dL (31.0-37.0); MCV 86.4 fL (80.0-100.0); Mean Platelet Volume 7.1; Platelet Count 233 k/uL (150-450); RBC 4.65 m/uL (4.30-5.90); RDW 13.9 % (11.5-15.5); WBC 7.1 k/uL (3.8-10.6)
[2018-01-14 12:12] LABS: Calcium 9.4 mg/dL (8.4-10.2); Potassium 4.9 mmol/L (3.5-5.1)
== END | disposition home or self-care (01) ==
LOC: LABWHC1 11:23
PROVIDERS: ATTEND Internal Medicine Clinical Cardiac Electrophysiology
DX: I42.8 Other cardiomyopathies (principal); I25.10 Atherosclerotic heart disease of native coronary artery without angina pectoris; I44.2 Atrioventricular block, complete; I50.22 Chronic systolic (congestive) heart failure
CPT/HCPCS: 36415; 80048; 85027

== ENCOUNTER 2018-01-24 13:01 | Day surgery (SDC) | payer MEDICARE ==
[2018-01-17 16:00] VITALS: BMI 29.8
[~2018-01-24 13:01] MED LIST changes: +LIDOCAINE 1% 20 ML VIAL (10MG/ML) FOR IV START INTRADERMA PRN; -SODIUM CHLORIDE 0.9% 1,000 ML IV SCH; +ceFAZolin 1,000 MG in SODIUM CHLORIDE 0.9% IRRIGATIO 250 ML IRRIGATION ONE
[2018-01-24] MEDS: SODIUM CHLORIDE 0.9% 1,000 ML IV SCH (13:28)
[2018-01-24 14:11] LABS: INR 1.5 (<1.2); Prothrombin Time 13.6 sec (9.0-12.0)
[2018-01-24] MEDS ORDERED: fentaNYL (PF) 50 MCG/ML 2 ML AMP ONE (14:21)
[2018-01-24] MEDS ORDERED: PROPOFOL 10 MG/ML 20 ML VIAL IV ONE (14:21)
[2018-01-24] MEDS ORDERED: MIDAZOLAM 2 MG/2 ML VIAL ONE (14:21)
[2018-01-24] MEDS ORDERED: IOPAMIDOL-370 50ML BTL INJ ONE ×2 (14:42→16:33)
[2018-01-24] MEDS ORDERED: LIDOCAINE 1% INJ 10MG/ML (20 ML MDV) ONE (14:46)
[2018-01-24] MEDS: ceFAZolin IN SWFI 2 GM/20 ML SYRINGE IVP ONE ×2 (14:50→14:55)
[2018-01-24] MEDS ORDERED: LIDOCAINE 1% INJ 10MG/ML (20 ML MDV) SQ ONE (15:01)
[2018-01-24] MEDS ORDERED: HYDROcodone/APAP 5-325MG 1 EACH TAB PO PRN (17:11)
[2018-01-24] MEDS ORDERED: ACETAMINOPHEN TAB 325 MG TAB PO PRN (17:11)
[2018-01-24] MEDS: LACTATED RINGERS 1,000 ML IV SCH (17:22)
[2018-01-24] MEDS ORDERED: MECLIZINE 25 MG TAB PO PRN (17:38)
[2018-01-24] MEDS ORDERED: ACETAMINOPHEN IV (For NPO) 1,000 MG in EMPTY BAG 1 BAG IVPB ONE (18:00)
--- NOTE | 2018-01-24 19:14 | PCN ---
PROCEDURE NOTE Mr. Ziegler is an 87-year-old gentleman with non-ischemic cardiomyopathy with 100% RV pacing with heart failure symptoms who is at [facility]. He was brought in for an upgrade to a biventricular pacemaker. He has complete heart block and bradycardia. He was brought in for upgrade to a biventricular ICD for improvement in his heart rate symptoms and cardiomyopathy with underlying complete heart block and bradycardia. Patient was brought to the EP lab in a fasting state. Written informed consent was obtained prior to the procedure. The left shoulder area was prepped and draped as per protocol. Lidocaine 1% was used for local anesthesia. A 4 cm incision was made parallel to the deltopectoral groove, about 1.5 cm medial to it, exactly at the previous surgical site, and carried down to the level of the generator. The pocket was opened. The device was removed from the pocket, but it remained connected to the RV lead since he has complete heart block. Pocket revision was performed. Partial capsulectomy was performed. The old leads were freed from the surrounding soft tissue. Access was obtained in the left axillary vein at the level of the second rib, extrathoracic. A sheath was placed in the right heart. The coronary sinus was accessed. This was a difficult coronary sinus access on account of the tortuosity of the os. In addition, the patient had a large anterolateral vein but very tortuous at the point of drainage into the main coronary sinus body. Therefore it took different inner sheaths, multiple wires and [address] finally place the LV lead in the anterolateral branch in a very secure position. The LV lead used was model #4398, 88 cm length and serial #[id number]. There was diaphragmatic stimulation noted in poles 2 and 3 at 8 to 10 V. No diaphragmatic stimulation on LV4 as well as LV1. The chronic right atrial lead was a model #5534 [employer] lead, serial #[id number]. Right ventricular lead was a model #5034, 58 cm in length, serial #[id number]. This had been chronically positioned in the RV apex. The P waves were 1.3 mV, pacing impedance was 576 ohms, pacing threshold 0.75 V at 0.5 milliseconds. RV pacing threshold was 1 V at 0.4 seconds. Patient has complete heart block. Pacing impedance is 1048 ohms. The LV pacing threshold from LV4 to LV1 was 2.2 V at 0.4 milliseconds, pacing impedance of 589 ohms. Ten-volt test was negative. The device was then programmed to DDDR mode with a short AV delay of 130 milliseconds with biventricular pacing configuration of LV4 to LV1 to RV can. Pacing was programmed. Rate responsiveness was programmed. Patient tolerated the procedure well without any acute complications. PROCEDURES PERFORMED: 1. Explantation of the dual-chamber pacemaker generator. 2. Implantation of a biventricular pacemaker generator. 3. Placement of an LV lead. 4. Long procedure on account of difficulties encountered during the procedure requiring additional time out of the ordinary to place an LV lead. FINAL DIAGNOSES: 1. Complete heart block with bradycardia. 2. 100% RV pacing. 3. Non-ischemic cardiomyopathy, ejection fraction less than 35%. 4. Congestive heart failure, systolic and chronic. 5. Status post successful biventricular pacemaker implantation. MMODL / IJN: [id number] /
[2018-01-24] MEDS: ceFAZolin IN SWFI 2 GM/20 ML SYRINGE IVP SCH (20:27)
[2018-01-24] MEDS ORDERED: traZODone HCL 50 MG TAB PO SCH (21:00)
[2018-01-24] MEDS ORDERED: WARFARIN 5 MG TAB PO SCH (21:00)
[2018-01-25] MEDS: ceFAZolin IN SWFI 2 GM/20 ML SYRINGE IVP SCH ×3 (02:22→13:09)
[2018-01-25] MEDS: SODIUM CHLORIDE 0.9% 1,000 ML IV SCH (02:23)
[2018-01-25] MEDS: LACTATED RINGERS 1,000 ML IV SCH (04:53)
[2018-01-25 06:56] LABS: Basophils % (A) 0 %; Eosinophils # (A) 0.2 k/uL (0-0.7); Eosinophils % (A) 2 %; HCT 43.7 % (39.0-53.0); Lymphocytes # (A) 1.1 k/uL (1.0-4.8); Lymphocytes % (A) 12 %; MCH 28.5 pg (25.0-35.0); MCV 89.3 fL (80.0-100.0); Mean Platelet Volume 6.8; Monocytes # (A) 0.5 k/uL (0-1.0); Monocytes % (A) 5 %; Neutrophils # (A) 7.6 k/uL (1.3-7.7); Neutrophils % (A) 80 %; Platelet Count 218 k/uL (150-450); RDW 14.3 % (11.5-15.5); WBC 9.5 k/uL (3.8-10.6)
[2018-01-25 07:03] LABS: INR 1.3 (<1.2); Prothrombin Time 12.6 sec (9.0-12.0)
[2018-01-25 07:10] LABS: Calcium 9.6 mg/dL (8.4-10.2); Potassium 4.9 mmol/L (3.5-5.1)
[2018-01-25] MEDS ORDERED: PANTOPRAZOLE 40 MG TABLET PO SCH (07:30)
[2018-01-25] MEDS ORDERED: CARVEDILOL 6.25 MG TAB PO SCH (09:00)
[2018-01-25] MEDS ORDERED: FINASTERIDE 5 MG TAB PO SCH (09:00)
[2018-01-25] MEDS ORDERED: ASPIRIN 81 MG PO SCH (09:00)
[2018-01-25] MEDS ORDERED: SPIRONOLACTONE 25 MG TAB PO SCH (09:00)
[2018-01-25] MEDS ORDERED: DIGOXIN 125 MCG TAB PO SCH (09:00)
[2018-01-25] MEDS ORDERED: LISINOPRIL 5 MG TAB PO SCH (09:00)
--- NOTE | 2018-01-25 09:15 | XR ---
EXAMINATION TYPE: XR chest 2V DATE OF EXAM: 01/25/2018 COMPARISON: 12/03/2017 HISTORY: Cardiac pacemaker placement TECHNIQUE: Frontal and lateral views of the chest are obtained. FINDINGS: There has been exchange of the previously seen dual lead left-sided cardiac device with a new 3-lead left-sided cardiac device with an atrial pacing leads, left ventricular lead, and right ve ntricular defibrillation lead noted. Enlarged cardiac silhouette is similar to the prior. Patient's c hin obscures the left lung apex and cannot be evaluated. Lungs are clear without evidence of focal co nsolidation, pleural effusion or gross evidence of pneumothorax. IMPRESSION: New 3-lead left-sided cardiac device with no sizable postprocedural pneumothorax, howeve r the patient's chin obscures the left lung apex and cannot be evaluated.
--- NOTE | 2018-01-25 09:21 | P.DS ---
Providers Attending physician: Fito Newell Primary care physician: [facility] Course: Patient is doing well. He has some soreness over the pacemaker site. No hematoma minimal bruising. No chest discomfort dizziness lightheadedness. 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 Chest x- ray reviewed Follow-up with device clinic in [address] Clark in 3 months Patient Condition at Discharge: Stable Plan - Discharge Summary Discharge Rx Participant: Yes New Discharge Prescriptions: Continue Lisinopril [Zestril] 5 mg PO DAILY Warfarin [Coumadin] 5 mg PO HS Finasteride [Proscar] 5 mg PO DAILY Digoxin [Lanoxin] 125 mcg PO DAILY Aspirin [Adult Low Dose Aspirin EC] 81 mg PO DAILY Omeprazole [PriLOSEC] 20 mg PO AC-BRKFST traZODone HCL 50 mg PO HS Spironolactone [Aldactone] 25 mg PO DAILY Carvedilol [Coreg] 6.25 mg PO DAILY Meclizine [Antivert] 25 mg PO BID PRN PRN Reason: Vertigo Discharge Medication List Aspirin [Adult Low Dose Aspirin EC] 81 mg PO DAILY 05/04/16 [History] Digoxin [Lanoxin] 125 mcg PO DAILY 05/04/16 [History] Finasteride [Proscar] 5 mg PO DAILY 05/04/16 [History] Lisinopril [Zestril] 5 mg PO DAILY 05/04/16 [History] Warfarin [Coumadin] 5 mg PO HS 05/04/16 [History] Omeprazole [PriLOSEC] 20 mg PO AC-BRKFST 02/13/17 [History] traZODone HCL 50 mg PO HS 08/15/17 [History] Carvedilol [Coreg] 6.25 mg PO DAILY 01/17/18 [History] Meclizine [Antivert] 25 mg PO BID PRN 01/17/18 [History] Spironolactone [Aldactone] 25 mg PO DAILY 01/17/18 [History] Follow up Appointment(s)/Referral(s): [facility] [Provider Group] - 01/30/18 1:30 pm (Sunday-Device check) Fito Newell MD [STAFF PHYSICIAN] - 04/24/18 3:45 pm (Sunday) Patient Instructions/Handouts: Pacemaker (DC) Activity/Diet/Wound Care/Special Instructions: PATIENT EDUCATION MATERIAL Instructions following a heart rhythm device implant. 1. Keep dressing DRY for 5 DAYS. You may cover the area with Saran or Cling Wrap, prior to a shower. 2. The dressing will be removed in the Device Clinic at [facility]. Absorbable sutures were used to close the wound. 3. Avoid raising the left arm above the shoulder level. 4 week restriction 4. Avoid arm movements, like backscratching, rubbing the head, or pulling on a cord. 4 weeks restriction 5. Gentle range of motion movements of the shoulder, closest to the incision should be performed to avoid a frozen shoulder. (Pendulum exercises of the shoulder) 6. The opposite arm may be used freely. 7. Avoid driving for 7 days. 8. Avoid activities such as golfing, swimming, weed whacking, lifting more than 10 pounds weight, bowling, gymnastics and weight training/lifting. (6 weeks restriction) 9. Activities such as wood chopping with an axe, pull-ups in the gymnasium, power lifting, arc-welding, being close to home induction cooktops will always be a problem. 10. Arm sling is a mere reminder not to raise the arm above the head. However you do not need to keep the arm completely immobilized. Your free to move the arm and use it and for normal activities. In case of any problems, please call [facility], Gracia Meyers, @ [phone], Attention: Device Clinic Device clinic follow-up in 5 days Follow-up with primary leather etcher in 2-3 months Device clinic follow-up in 5 days Follow-up with Dr. Clark in 3 months
[2018-01-25 11:37] VITALS: BP 142/77; PULSE 61; RESP 18; TEMP 96.4
== END 2018-01-25 14:05 | disposition home or self-care (01) ==
LOC: CATHEP 13:01 → 6SEL 16:45 → CATHEP 01-25 14:05
PROVIDERS: ATTEND Internal Medicine Clinical Cardiac Electrophysiology
DX: I42.8 Other cardiomyopathies (principal); I86.8 Varicose veins of other specified sites; I44.2 Atrioventricular block, complete; Z00.6 Encounter for examination for normal comparison and control in clinical research program; I25.10 Atherosclerotic heart disease of native coronary artery without angina pectoris; I11.0 Hypertensive heart disease with heart failure; I50.22 Chronic systolic (congestive) heart failure; Z87.891 Personal history of nicotine dependence; I48.91 Unspecified atrial fibrillation; Z79.01 Long term (current) use of anticoagulants; E78.5 Hyperlipidemia, unspecified; Z82.49 Family history of ischemic heart disease and other diseases of the circulatory system; Z95.1 Presence of aortocoronary bypass graft; Z45.018 Encounter for adjustment and management of other part of cardiac pacemaker; Z79.82 Long term (current) use of aspirin; Z79.899 Other long term (current) drug therapy
CPT/HCPCS: 33225; 33249; 33233; 80048; 85025; 85610 ×2; 71046; C1892; C1730; C1769 ×2; C2621; C1900 ×2; S0138; J2250; J0690 ×3; J2001; J3010; J2704; Q9967; 33214

== ENCOUNTER → 2018-10-21 | Outpatient (CLI) | payer MEDICARE ==
[2018-10-21 14:47] LABS: INR 1.2 (<1.2); Prothrombin Time 12.1 sec (9.0-12.0)
== END | disposition home or self-care (01) ==
LOC: LABWHC1 13:58
PROVIDERS: ATTEND Dentist Oral and Maxillofacial Surgery
DX: D68.9 Coagulation defect, unspecified (principal)
CPT/HCPCS: 36415; 85610

== ENCOUNTER 2019-06-27 11:08 | Inpatient (IN) | payer MEDICARE ==
[2019-06-27] MEDS ORDERED: SODIUM CHLORIDE 0.9% 1,000 ML IV STA ×2 (11:56)
--- NOTE | 2019-06-27 12:13 | ED ---
Extremity Problem HPI - General Chief complaint: Extremity Problem,Nontraumatic Stated complaint: Swelling legs Time Seen by Provider: 06/27/19 11:31 Source: patient, family, RN notes reviewed, old records reviewed Mode of arrival: wheelchair Limitations: no limitations - History of Present Illness Initial comments: Patient is a 88-year-old female, presents emergency department today for valuation for worsening bilateral lower extremity edema, generalized weakness. Patient's family reports that he does see Dr. Mccabe for cardiology has had a history of having a pacemaker. He denies any chest pain or specific shortness of breath at this time. Patient reports he has had a hard time walking due to the swelling in his legs in general weakness and pain. Patient states that he's had no specific fevers or chills. - Related Data Home Medications Medication Instructions Recorded Confirmed Aspirin [Adult Low Dose Aspirin EC] 81 mg PO DAILY 05/04/16 06/27/19 Finasteride [Proscar] 5 mg PO HS 05/04/16 06/27/19 Warfarin [Coumadin] 5 mg PO SUSA 05/04/16 06/27/19 Omeprazole [PriLOSEC] 20 mg PO AC-BRKFST 02/13/17 06/27/19 traZODone HCL 50 - 100 mg PO HS 08/15/17 06/27/19 Meclizine [Antivert] 12.5 mg PO BID PRN 01/17/18 06/27/19 Furosemide [Lasix] 20 mg PO DAILY 06/27/19 06/27/19 Metoprolol Succinate [Toprol XL] 25 mg PO HS 06/27/19 06/27/19 Warfarin [Coumadin] 7.5 mg PO MOTUWETHFR 06/27/19 06/27/19 Allergies Allergy/AdvReac Type Severity Reaction Status Date / Time No Known Allergies Allergy Verified 06/27/19 14:39 Review of Systems ROS Statement: Those systems with pertinent positive or pertinent negative responses have been documented in the HPI. ROS Other: All systems not noted in ROS Statement are negative. Past Medical History Past Medical History: Atrial Fibrillation, CVA/TIA, Hyperlipidemia, Hypertension, Myocardial Infarction ([place]), Osteoarthritis (OA) Additional Past Medical History / Comment(s): chronic back pain, sciatica, vertigo, see Dr Newell H & P Last Myocardial Infarction Date:: 1999 History of Any Multi-Drug Resistant Organisms: None Reported Past Surgical History: Cholecystectomy, Coronary Bypass/CABG, Hernia Repair, Pacemaker Additional Past Surgical History / Comment(s): triple bypass 1989 Past Anesthesia/Blood Transfusion Reactions: Motion Sickness Type of Cardiac Device: Permanent Pacemaker Device Placement Date:: 2009 Past Psychological History: No Psychological Hx Reported Smoking Status: Former smoker Past Alcohol Use History: None Reported Past Drug Use History: None Reported - Past Family History Father Family Medical History: Cancer Additional Family Medical History / Comment(s): lymphoma Brother(s) Family Medical History: Cancer General Exam - General Exam Comments Initial Comments: Pleasant 88-year-old male. Patient appears in no distress. Limitations: no limitations General appearance: alert, in no apparent distress Head exam: Present: atraumatic, normocephalic, normal inspection Eye exam: Present: normal appearance, PERRL, EOMI. Absent: scleral icterus, conjunctival injection, periorbital swelling ENT exam: Present: normal exam, mucous membranes moist Neck exam: Present: normal inspection. Absent: tenderness, meningismus, lymphadenopathy Respiratory exam: Present: normal lung sounds bilaterally. Absent: respiratory distress, wheezes, rales, rhonchi, stridor Cardiovascular Exam: Present: regular rate, normal rhythm, normal heart sounds. Absent: systolic murmur, diastolic murmur, rubs, gallop, clicks GI/Abdominal exam: Present: soft, normal bowel sounds. Absent: distended, tenderness, guarding, rebound, rigid Extremities exam: Present: normal inspection, full ROM, normal capillary refill, pedal edema (4+ pedal edema bilaterally.), calf tenderness (left ), other (Patient reports left lower extremity swelling is worse on the right, some left posterior calf tenderness and warmth.). Absent: tenderness, joint swelling Back exam: Present: normal inspection Neurological exam: Present: alert, oriented X3, CN II-XII intact Course Vital Signs 06/27/19 06/27/19 06/27/19 11:21 12:00 12:30 Temperature 98.5 F Pulse Rate 60 60 61 Respiratory 18 12 15 Rate Blood Pressure 133/65 139/84 128/70 O2 Sat by Pulse 95 95 98 Oximetry 06/27/19 12:40 Temperature Pulse Rate 60 Respiratory 11 L Rate Blood Pressure 158/86 O2 Sat by Pulse 98 Oximetry - Reevaluation(s) Reevaluation #1: 06/27/19 14:04 Patient's daughter pulled nursing staff and myself aside, stating that they are having a hard time taking care for Patient at home with the being sole caregivers Patient is having a difficult time with ambulation and walking around 2 and from the bathroom. They are questioning possibility of placement to extended care facility. 06/27/19 14:04 Medical Decision Making - Medical Decision Making 88-year-old male presents today for concern for bilateral extremity swelling worsening over the past week. Patient denies specific chest pain or shortness of breath. At this time patient's family also questions a fair able to fully take care of his needs, as he is become generally weak having a hard time with ambulation. Patient acquisitions librarian is Dr. Mccabe.Troponin test was negative. BNP is 3300. INR is mildly subtherapeutic at 1.9. Chest x-ray shows evidence of interstitial prominence consistent with CHF. Discusses him with concerns for generalized weakness, and meaning placement to extending care facility we can admit the Patient for CHF and cardiology evaluation. Discussed case with Dr. Cardona who discussed the case with sounds physician. - Lab Data Result diagrams: 06/27/19 12:15 06/27/19 12:15 Lab Results 06/27/19 06/27/19 06/27/19 Range/Units 12:15 12:15 12:15 WBC 5.9 (3.8-10.6) k/uL RBC 4.17 L (4.30-5.90) m/uL Hgb 11.9 L (13.0-17.5) gm/dL Hct 36.8 L (39.0-53.0) % MCV 88.4 (80.0-100.0) fL MCH 28.6 (25.0-35.0) pg MCHC 32.4 (31.0-37.0) g/dL RDW 14.0 (11.5-15.5) % Plt Count 233 (150-450) k/uL Neutrophils % 77 % Lymphocytes % 13 % Monocytes % 6 % Eosinophils % 2 % Basophils % 0 % Neutrophils # 4.5 (1.3-7.7) k/uL Lymphocytes # 0.8 L (1.0-4.8) k/uL Monocytes # 0.4 (0-1.0) k/uL Eosinophils # 0.1 (0-0.7) k/uL Basophils # 0.0 (0-0.2) k/uL PT (9.0-12.0) sec INR (<1.2) APTT (22.0-30.0) sec Sodium 139 (137-145) mmol/L Potassium 4.2 (3.5-5.1) mmol/L Chloride 104 (98-107) mmol/L Carbon Dioxide 28 (22-30) mmol/L Anion Gap 7 mmol/L BUN 22 H (9-20) mg/dL Creatinine 1.03 (0.66-1.25) mg/dL Est GFR (CKD-EPI)AfAm 76 (>60 ml/min/1.73 sqM) Est GFR (CKD-EPI)NonAf 66 (>60 ml/min/1.73 sqM) Glucose 92 (74-99) mg/dL Calcium 9.2 (8.4-10.2) mg/dL Magnesium 2.1 (1.6-2.3) mg/dL Total Bilirubin 1.5 H (0.2-1.3) mg/dL AST 31 (17-59) U/L ALT 28 (21-72) U/L Alkaline Phosphatase 67 (38-126) U/L Troponin I (0.000-0.034) ng/mL NT-Pro-B Natriuret Pep 3300 pg/mL Total Protein 6.3 (6.3-8.2) g/dL Albumin 3.7 (3.5-5.0) g/dL 06/27/19 06/27/19 Range/Units 12:15 12:15 WBC (3.8-10.6) k/uL RBC (4.30-5.90) m/uL Hgb (13.0-17.5) gm/dL Hct (39.0-53.0) % MCV (80.0-100.0) fL MCH (25.0-35.0) pg MCHC (31.0-37.0) g/dL RDW (11.5-15.5) % Plt Count (150-450) k/uL Neutrophils % % Lymphocytes % % Monocytes % % Eosinophils % % Basophils % % Neutrophils # (1.3-7.7) k/uL Lymphocytes # (1.0-4.8) k/uL Monocytes # (0-1.0) k/uL Eosinophils # (0-0.7) k/uL Basophils # (0-0.2) k/uL PT 17.8 H (9.0-12.0) sec INR 1.8 H (<1.2) APTT 30.8 H (22.0-30.0) sec Sodium (137-145) mmol/L Potassium (3.5-5.1) mmol/L Chloride (98-107) mmol/L Carbon Dioxide (22-30) mmol/L Anion Gap mmol/L BUN (9-20) mg/dL Creatinine (0.66-1.25) mg/dL Est GFR (CKD-EPI)AfAm (>60 ml/min/1.73 sqM) Est GFR (CKD-EPI)NonAf (>60 ml/min/1.73 sqM) Glucose (74-99) mg/dL Calcium (8.4-10.2) mg/dL Magnesium (1.6-2.3) mg/dL Total Bilirubin (0.2-1.3) mg/dL AST (17-59) U/L ALT (21-72) U/L Alkaline Phosphatase (38-126) U/L Troponin I <0.012 (0.000-0.034) ng/mL NT-Pro-B Natriuret Pep pg/mL Total Protein (6.3-8.2) g/dL Albumin (3.5-5.0) g/dL 06/27/19 14:08 EKG shows AV paced rhythm, biventricular pacemaker detected. Abnormal EKG noted. Ventricular rate of 62 bpm. Verbal is 176 ms. QRS duration is 164 ms. QT QTc is 490/497 ms. - Radiology Data Radiology results: report reviewed Chest x-ray shows mild interstitial prominence. Interstitial disease of sick congestive heart failure should be considered. Few areas of subsegmental atelectasis on the right is noted. Venous Doppler ultrasound is negative for acute process. No evidence of DVT. Disposition Clinical Impression: CHF (congestive heart failure), Generalized weakness Disposition: ADMITTED IP TO THIS [facility] Condition: Good Additional Instructions: Please use medication as discussed. Please follow up with family doctor if symptoms have not improved over the next two days. Please return to the [facility] rgency room if your symptoms increase or worsen or for any other concerns. Is patient prescribed a controlled substance at d/c from ED?: No Referrals: Quinn Ricci MD [Primary Care Provider] - 1-2 days Time of Disposition: 14:44
--- NOTE | 2019-06-27 12:40 | XR ---
EXAMINATION TYPE: XR chest 2V DATE OF EXAM: 06/27/2019 COMPARISON: 01/25/2019 HISTORY: Chest pain and shortness of breath TECHNIQUE: Frontal and lateral views of the chest are obtained. FINDINGS: Multifocal right midlung linear probable atelectasis is subsegmental. Very mild interstitia l prominence throughout. There is no focal air space opacity, pleural effusion, or pneumothorax seen. The cardiac silhouette size is mildly enlarged with post CABG changes. The osseous structures are intact. Diffuse osseous demineralization seen with moderate degenerative changes of the spine. Verte bral body heights are suboptimally evaluated. Suspected mid thoracic compression deformity appears si milar to the prior. IMPRESSION: Mild interstitial prominence. Interstitial disease congestive heart failure should be co nsidered. Few areas of subsegmental atelectasis on the right.
[2019-06-27 12:44] LABS: Basophils % (A) 0 %; Eosinophils # (A) 0.1 k/uL (0-0.7); Eosinophils % (A) 2 %; HCT 36.8 % (39.0-53.0); HGB 11.9 gm/dL (13.0-17.5); Lymphocytes # (A) 0.8 k/uL (1.0-4.8); Lymphocytes % (A) 13 %; MCH 28.6 pg (25.0-35.0); MCHC 32.4 g/dL (31.0-37.0); MCV 88.4 fL (80.0-100.0); Mean Platelet Volume 6.8; Monocytes # (A) 0.4 k/uL (0-1.0); Monocytes % (A) 6 %; Neutrophils # (A) 4.5 k/uL (1.3-7.7); Neutrophils % (A) 77 %; Platelet Count 233 k/uL (150-450); RBC 4.17 m/uL (4.30-5.90); WBC 5.9 k/uL (3.8-10.6)
[2019-06-27 12:45] LABS: INR 1.8 (<1.2); Partial Thromboplastin Time 30.8 sec (22.0-30.0); Prothrombin Time 17.8 sec (9.0-12.0)
[2019-06-27 12:53] LABS: Albumin 3.7 g/dL (3.5-5.0); Calcium 9.2 mg/dL (8.4-10.2); Magnesium 2.1 mg/dL (1.6-2.3); Potassium 4.2 mmol/L (3.5-5.1); Total Bilirubin 1.5 mg/dL (0.2-1.3); Total Protein 6.3 g/dL (6.3-8.2)
--- NOTE | 2019-06-27 13:12 | US ---
EXAMINATION TYPE: US venous doppler duplex LE LT DATE OF EXAM: 06/27/2019 12:58 PM COMPARISON: NONE CLINICAL HISTORY: swelling, pain. SIDE PERFORMED: Left TECHNIQUE: The lower extremity deep venous system is examined utilizing real time linear array sonog panchito with graded compression, doppler sonography and color-flow sonography. VESSELS IMAGED: External Iliac Vein (EIV) Common Femoral Vein Deep Femoral Vein Greater Saphenous Vein * Femoral Vein Popliteal Vein Small Saphenous Vein * Proximal Calf Veins (* superficial vessels) Grayscale, color doppler, spectral doppler imaging performed of the deep veins of the left lower extr emity. There is normal flow, compressibility, vascular waveforms. Left Leg: Negative for DVT IMPRESSION: No sonographic evidence of deep venous thrombosis of the left lower extremity.
[2019-06-27] MEDS ORDERED: FUROSEMIDE 10 MG/ML 4 ML VIAL IV STA (13:29)
[2019-06-27] MEDS: SODIUM CHLORIDE 0.9% 1,000 ML IV SCH (15:15)
[2019-06-27] MEDS ORDERED: MECLIZINE 12.5 MG TAB PO PRN (16:22)
[2019-06-27] MEDS ORDERED: traZODone HCL 50 MG TAB PO PRN (16:22)
--- NOTE | 2019-06-27 16:22 | P.HPIM ---
History of Present Illness H&P Date: 06/27/19 Chief Complaint: Shortness of breath This is an 88-year-old white male who reported to the emergency room because of increased shortness of breath. Symptoms have been going on for the past few days. He also noted bilateral lower extremity swelling. He denies wheezing, no cough, no subjective fever no chills. He has been feeling fatigued and lethargic. He denies chest pain abdominal pain nausea or vomiting. At the time of examination patient is in bed, he does not appear to be in distress, family at bedside. He is not sure about weight gain. Review of Systems 10 systems reviewed, pertinent positive and negative findings as in HPI, no chest pain no abdominal pain. Past Medical History Past Medical History: Atrial Fibrillation, CVA/TIA, Hyperlipidemia, Hypertension, Myocardial Infarction ([place]), Osteoarthritis (OA) Additional Past Medical History / Comment(s): chronic back pain, sciatica, vertigo, see Dr Newell H & P Last Myocardial Infarction Date:: 1999 History of Any Multi-Drug Resistant Organisms: None Reported Past Surgical History: Cholecystectomy, Coronary Bypass/CABG, Hernia Repair, Pacemaker Additional Past Surgical History / Comment(s): triple bypass 1989 Past Anesthesia/Blood Transfusion Reactions: Motion Sickness Type of Cardiac Device: Permanent Pacemaker Device Placement Date:: 2009 Past Psychological History: No Psychological Hx Reported Smoking Status: Former smoker Past Alcohol Use History: None Reported Past Drug Use History: None Reported - Past Family History Father Family Medical History: Cancer Additional Family Medical History / Comment(s): lymphoma Brother(s) Family Medical History: Cancer Medications and Allergies Home Medications Medication Instructions Recorded Confirmed Type Aspirin [Adult Low Dose Aspirin EC] 81 mg PO DAILY 05/04/16 06/27/19 History Finasteride [Proscar] 5 mg PO HS 05/04/16 06/27/19 History Warfarin [Coumadin] 5 mg PO SUSA 05/04/16 06/27/19 History Omeprazole [PriLOSEC] 20 mg PO AC-BRKFST 02/13/17 06/27/19 History traZODone HCL 50 - 100 mg PO HS 08/15/17 06/27/19 History Meclizine [Antivert] 12.5 mg PO BID PRN 01/17/18 06/27/19 History Furosemide [Lasix] 20 mg PO DAILY 06/27/19 06/27/19 History Metoprolol Succinate [Toprol XL] 25 mg PO HS 06/27/19 06/27/19 History Warfarin [Coumadin] 7.5 mg PO MOTUWETHFR 06/27/19 06/27/19 History Allergies Allergy/AdvReac Type Severity Reaction Status Date / Time No Known Allergies Allergy Verified 06/27/19 14:39 Physical Exam Vitals: Vital Signs Temp Pulse Resp BP Pulse Ox 06/27/19 16:00 98.7 F 60 18 138/83 98 06/27/19 14:30 61 18 167/90 96 06/27/19 14:00 60 19 162/85 97 06/27/19 13:00 62 15 158/86 06/27/19 12:40 60 11 L 158/86 98 06/27/19 12:30 61 15 128/70 98 06/27/19 12:00 60 12 139/84 95 06/27/19 11:21 98.5 F 60 18 133/65 95 Intake and Output 06/27/19 06/27/19 06/27/19 06:59 14:59 22:59 Output Total 700 Balance -700 Output: Urine 700 Other: # Voids 2 Weight 95.254 kg Constitutional: No acute distress, conversant, pleasant Eyes: Anicteric sclerae ENMT: NC/AT Neck:Supple Lungs: Decreased breath sounds, few crackles, no wheezing Cardiovascular: Heart regular in rate and rhythm, No murmurs, gallops, or rubs , pacemaker in place Abdominal: Soft Nontender, nom distended, no guarding, Skin: Normal temperature, No rash Extremities:No digital cyanosis No clubbing, 2+ bilateral lower extremity edema Psychiatric: Alert and oriented to person, place and time Neuro: Muscles Strength 5/5 in all 4 extremities, Cranial nerves II-XII grossly intact. Results CBC & Chem 7: 06/27/19 12:15 06/27/19 12:15 Labs: Abnormal Lab Results - Last 24 Hours (Table) 06/27/19 06/27/19 06/27/19 Range/Units 12:15 12:15 12:15 RBC 4.17 L (4.30-5.90) m/uL Hgb 11.9 L (13.0-17.5) gm/dL Hct 36.8 L (39.0-53.0) % Lymphocytes # 0.8 L (1.0-4.8) k/uL PT 17.8 H (9.0-12.0) sec INR 1.8 H (<1.2) APTT 30.8 H (22.0-30.0) sec BUN 22 H (9-20) mg/dL Total Bilirubin 1.5 H (0.2-1.3) mg/dL Assessment and Plan Plan: 1. Acute on chronic congestive heart failure, unknown systolic or diastolic: Place on Lasix 40 mg IV twice a day, monitor urine output and serum creatinine, monitor daily weight, cardiology consultation, check cardiac enzymes. Request a 2-D echo 2. Chronic atrial fibrillation: Continue Coumadin 3. Hyperlipidemia: Continue statin 4. Essential hypertension 5. History of coronary artery disease status post CABG 6. Obesity: BMI 29.3 7. GERD without esophagitis: Continue PPI 8. BPH: Continue finasteride 9. Insomnia: Continue trazodone when necessary Disposition: Home in 2-3 days Treatment plan discussed with the patient and his family at bedside
[2019-06-27] MEDS: NITROGLYCERIN OINT 1 INCH/GM PACKET TOPICAL SCH ×2 (17:42→18:45)
[2019-06-27] MEDS ORDERED: WARFARIN 7.5 MG TAB PO SCH (18:00)
[2019-06-27] MEDS: FINASTERIDE 5 MG TAB PO SCH (20:49)
[2019-06-27] MEDS: FUROSEMIDE 10 MG/ML 4 ML VIAL IV SCH (20:50)
[2019-06-27] MEDS ORDERED: METOPROLOL SUCCINATE (ER) 25 MG TAB.ER.24H PO SCH (21:00)
[2019-06-27] MEDS ORDERED: FUROSEMIDE 10 MG/ML 4 ML VIAL IV SCH (22:00)
[2019-06-28 07:36] LABS: Basophils % (A) 0 %; Eosinophils # (A) 0.1 k/uL (0-0.7); Eosinophils % (A) 2 %; HCT 40.6 % (39.0-53.0); HGB 13.5 gm/dL (13.0-17.5); Lymphocytes # (A) 1.3 k/uL (1.0-4.8); Lymphocytes % (A) 15 %; MCH 29.3 pg (25.0-35.0); MCHC 33.2 g/dL (31.0-37.0); MCV 88.4 fL (80.0-100.0); Mean Platelet Volume 6.1; Monocytes # (A) 0.4 k/uL (0-1.0); Monocytes % (A) 5 %; Neutrophils # (A) 6.6 k/uL (1.3-7.7); Neutrophils % (A) 77 %; Platelet Count 254 k/uL (150-450); RDW 13.6 % (11.5-15.5); WBC 8.6 k/uL (3.8-10.6)
[2019-06-28 08:04] LABS: INR 1.8 (<1.2); Prothrombin Time 17.6 sec (9.0-12.0)
[2019-06-28 08:27] LABS: Albumin 4.1 g/dL (3.5-5.0); Calcium 9.6 mg/dL (8.4-10.2); Potassium 3.9 mmol/L (3.5-5.1); Total Bilirubin 2.1 mg/dL (0.2-1.3); Total Protein 6.7 g/dL (6.3-8.2)
[2019-06-28] MEDS: NITROGLYCERIN OINT 1 INCH/GM PACKET TOPICAL SCH ×2 (08:29→08:32)
[2019-06-28] MEDS: FUROSEMIDE 10 MG/ML 4 ML VIAL IV SCH ×2 (08:32→20:53)
[2019-06-28] MEDS: PANTOPRAZOLE 40 MG TABLET PO SCH (08:32)
[2019-06-28] MEDS: ASPIRIN 81 MG PO SCH (08:32)
--- NOTE | 2019-06-28 10:20 | P.PN ---
Subjective Progress Note Date: 06/28/19 Principal diagnosis: edema Patient is 88-year-old male past medical history of atrial fibrillation, TIA, hypertension, and dyslipidemia who presented to the emergency department with shortness of breath and lower extremity edema. In the ER he underwent an extensive evaluation. On arrival his vital signs within normal limits. Laboratory analysis showed an elevated BNP at 3300 and troponin was negative. Chest x-ray showed interstitial prominence and interstitial disease consistent with congestive heart failure. He underwent a left lower extremity venous Doppler which was negative for DVT. He was diagnosed with congestive heart failure and started on IV Lasix. He was admitted for further monitoring. Patient seen and examined at bedside. He is significantly confused. He is unsure if he was short of breath yesterday, he does report lower extremity edema . He is unsure if he has a history of congestive heart failure. He denies any nausea or vomiting. He appears to be seeing things that are not there. He does report some chronic dizziness. Objective - Vital Signs Vital signs: Vital Signs Temp 97.2 F L 06/28/19 04:05 Pulse 64 06/28/19 04:05 Resp 22 06/28/19 04:05 BP 179/88 06/28/19 04:05 Pulse Ox 94 L 06/28/19 04:05 Intake & Output 06/27/19 06/28/19 06/28/19 18:59 06:59 18:59 Output Total 1200 Balance -1200 Weight 95.254 kg 94 kg Output: Urine 1200 Other: Voiding Method Bedside Commode Bedside Commode Urinal Urinal Diaper Diaper Incontinent Incontinent # Voids 2 2 - Exam General: non toxic, no distress, appears at stated age Derm: warm, dry Head: atraumatic, normocephalic, symmetric Eyes: EOMI, no lid lag, anicteric sclera Mouth: no lip lesion, mucus membranes moist Cardiovascular: S1-S2 irregular with systolic murmur, positive posterior tibial pulse bilateral, Lungs: Decreased breath sounds bilateral, no rhonchi, no rales , no accessory muscle use Abdominal: soft, nontender to palpation, no guarding, no appreciable organomegaly Ext: no gross muscle atrophy, 2+ lower extremity edema, no contractures Neuro: CN II-XI grossly intact, no focal neuro deficits Psych: Alert, oriented, appropriate affect - Labs CBC & Chem 7: 06/28/19 06:40 06/28/19 06:40 Labs: Abnormal Lab Results - Last 24 Hours (Table) 06/27/19 06/27/19 06/27/19 Range/Units 12:15 12:15 12:15 RBC 4.17 L (4.30-5.90) m/uL Hgb 11.9 L (13.0-17.5) gm/dL Hct 36.8 L (39.0-53.0) % Lymphocytes # 0.8 L (1.0-4.8) k/uL PT 17.8 H (9.0-12.0) sec INR 1.8 H (<1.2) APTT 30.8 H (22.0-30.0) sec BUN 22 H (9-20) mg/dL Glucose (74-99) mg/dL Total Bilirubin 1.5 H (0.2-1.3) mg/dL 06/28/19 06/28/19 Range/Units 06:40 06:40 RBC (4.30-5.90) m/uL Hgb (13.0-17.5) gm/dL Hct (39.0-53.0) % Lymphocytes # (1.0-4.8) k/uL PT 17.6 H (9.0-12.0) sec INR 1.8 H (<1.2) APTT (22.0-30.0) sec BUN (9-20) mg/dL Glucose 101 H (74-99) mg/dL Total Bilirubin 2.1 H (0.2-1.3) mg/dL Assessment and Plan Assessment: Fluid overload, probable acute exacerbation of congestive heart failure -Await echocardiogram -Continue with Lasix -Continue with home metoprolol, will add DAVID inhibitor if signs of congestive heart failure and an echo -Strict I's and O's, daily weights -Cardiology recommendations -Stop Nitropatch Atrial fibrillation with subtherapeutic Coumadin coagulopathy -Pharmacy to dose Coumadin -Continue with metoprolol -Follow heart rates -Cardiology recommendations Hypertension, slightly elevated -Continue with metoprolol -Follow blood pressures Dyslipidemia -Not on medication chronically -We'll leave to the discretion of PCP whether or not this needs to be started History of vertigo - orthostatic if able to stand confusion, suspect underlying memory loss - supportive care - check bladder scan to rule out urinary retention with over flow incontinence Debility - pt/ot evaluation DVT prophylaxis: coumadin Discussed with: patient, nursing, no family present at bedside Anticipated discharge: 1-[address]: home A total of 35 minutes was spent on the care of this complex patient more than 50% of the time was spent in counseling and care coordination.
--- NOTE | 2019-06-28 12:57 | P.CRDCN ---
History of Present Illness Consult date: 06/28/19 Consult reason: congestive heart failure, shortness of breath History of present illness: Patient is 88-year-old male past medical history of nonischemic cardiomyopathy, atrial fibrillation, complete heart block status post biventricular pacemaker, hypertension, and dyslipidemia who follows with Dr. Newell in the office. He presented to the emergency department yesterday with shortness of breath and lower extremity edema. EKG showed paced rhythm. Laboratory analysis showed elevated BNP at 3300 and troponin was negative. Chest x-ray showed interstitial prominence and interstitial disease. He underwent a left lower extremity venous Doppler which was negative for DVT. PAST MEDICAL HISTORY: atrial fibrillation, complete heart block status post biventricular pacemaker, CAD, nonischemic cardiomyopathy, valvular heart disease, TIA, hypertension, dyslipidemia REVIEW OF SYSTEMS: No fever or chills. No cough or expectoration. No diaphoresis. Patient denies headache, dizziness, blurred vision, double vision. Patient denies any stomach discomfort. No nausea, vomiting. No hematochezia. No hematemesis. Denies any black stools or blood in his stools. Denies dysuria or hematuria. No muscle weakness or numbness. he does have some shortness of breath on exertion and states he also has had an increase in dizziness and lightheadedness. According to nursing staff he has been very unstable on his feet since arrival. PHYSICAL EXAMINATION: This is a 88-year-old male in no apparent distress at the time of my examination. HEENT: Head is atraumatic, normocephalic. Pupils are equal, round. Sclerae anicteric. Conjunctivae are clear. Mucous membranes of the mouth are moist. Neck is supple. There is no jugular venous distention. No carotid bruit is heard. CHEST EXAMINATION: Lungs are clear to auscultation. No chest wall tenderness is noted on palpation or with deep breathing. HEART EXAMINATION: Heart regular rate and rhythm. S1, S2 heard. systolic murmur. No gallops or rub. ABDOMEN: Soft, nontender. Bowel sounds are heard. No organomegaly noted. EXTREMITIES: 2+ peripheral pulses with +2 lower extremity edema. no calf tenderness noted. NEUROLOGIC EXAMINATION: Patient is awake, alert and oriented x2. LABORATORY DATA: WBC 8.6, hemoglobin 13.5, hematocrit 40.6, platelets 254, sodium 141, potassium 3.9, BUN 20, creatinine 1.0, magnesium 2.1, BNP 3300, troponins <0.012, 0.018, and 0.020. FINAL ASSESSMENT AND PLAN: #1 nonischemic cardiomyopathy, previous EF 35% #2 congestive heart failure, acute systolic #3 complete heart block status post biventricular pacemaker #4 paroxysmal atrial fibrillation, on Coumadin #5 hypertension #6 dyslipidemia #7 lower extremity edema, negative for DVT, fluid overload PLAN: We will continue diuresis with furosemide 40 mg IV every 12. Daily weights and I&O monitoring. orthostatic blood pressure assessment. Repeat Echocardiogram. Discontinue nitoglycerin patch. Device interrogation to be done. Low sodium diet. continue to monitor Past Medical History Past Medical History: Atrial Fibrillation, CVA/TIA, Hyperlipidemia, Hypertension, Myocardial Infarction (NE), Osteoarthritis (OA) Additional Past Medical History / Comment(s): chronic back pain, sciatica, vertigo, see Dr Newell H & P Last Myocardial Infarction Date:: 1999 History of Any Multi-Drug Resistant Organisms: None Reported Past Surgical History: Cholecystectomy, Coronary Bypass/CABG, Hernia Repair, Pacemaker Additional Past Surgical History / Comment(s): triple bypass 1989 Past Anesthesia/Blood Transfusion Reactions: Motion Sickness Type of Cardiac Device: Permanent Pacemaker Device Placement Date:: 2017 Smoking Status: Former smoker - Past Family History Father Family Medical History: Cancer Additional Family Medical History / Comment(s): lymphoma Brother(s) Family Medical History: Cancer Medications and Allergies Home Medications Medication Instructions Recorded Confirmed Type Aspirin [Adult Low Dose Aspirin EC] 81 mg PO DAILY 05/04/16 06/27/19 History Finasteride [Proscar] 5 mg PO HS 05/04/16 06/27/19 History Warfarin [Coumadin] 5 mg PO SUSA 05/04/16 06/27/19 History Omeprazole [PriLOSEC] 20 mg PO AC-BRKFST 02/13/17 06/27/19 History traZODone HCL 50 - 100 mg PO HS 08/15/17 06/27/19 History Meclizine [Antivert] 12.5 mg PO BID PRN 01/17/18 06/27/19 History Furosemide [Lasix] 20 mg PO DAILY 06/27/19 06/27/19 History Metoprolol Succinate [Toprol XL] 25 mg PO HS 06/27/19 06/27/19 History Warfarin [Coumadin] 7.5 mg PO MOTUWETHFR 06/27/19 06/27/19 History Allergies Allergy/AdvReac Type Severity Reaction Status Date / Time No Known Allergies Allergy Verified 06/27/19 14:39 Physical Exam Vitals: Vital Signs Temp Pulse Pulse Resp BP BP BP 06/28/19 11:31 97.7 F 69 20 168/80 06/28/19 04:05 97.2 F L 64 22 179/88 06/27/19 20:49 97.9 F 82 16 173/99 06/27/19 17:04 97.9 F 78 187/100 185/105 06/27/19 16:35 06/27/19 16:00 98.7 F 60 18 138/83 06/27/19 14:30 61 18 167/90 06/27/19 14:00 60 19 162/85 06/27/19 13:00 62 15 158/86 Pulse Ox 06/28/19 11:31 95 06/28/19 04:05 94 L 06/27/19 20:49 96 06/27/19 17:04 98 06/27/19 16:35 98 06/27/19 16:00 98 06/27/19 14:30 96 06/27/19 14:00 97 06/27/19 13:00 Intake and Output 06/27/19 06/28/19 06/28/19 22:59 06:59 14:59 Output Total 1200 Balance -1200 Output: Urine 1200 Other: Voiding Method Bedside Commode Bedside Commode Urinal Urinal Diaper Diaper Incontinent Incontinent # Voids 4 2 Weight 94 kg Results 06/28/19 06:40 06/28/19 06:40 Cardiac Enzymes 06/27/19 06/27/19 06/27/19 Range/Units 12:15 12:15 18:58 AST 31 (17-59) U/L Troponin I <0.012 0.018 (0.000-0.034) ng/mL 06/28/19 06/28/19 Range/Units 00:54 06:40 AST 32 (17-59) U/L Troponin I 0.020 (0.000-0.034) ng/mL Coagulation 06/27/19 06/28/19 Range/Units 12:15 06:40 PT 17.8 H 17.6 H (9.0-12.0) sec APTT 30.8 H (22.0-30.0) sec CBC 06/27/19 06/28/19 Range/Units 12:15 06:40 WBC 5.9 8.6 (3.8-10.6) k/uL RBC 4.17 L 4.60 (4.30-5.90) m/uL Hgb 11.9 L 13.5 (13.0-17.5) gm/dL Hct 36.8 L 40.6 (39.0-53.0) % Plt Count 233 254 (150-450) k/uL Comprehensive Metabolic Panel 06/27/19 06/28/19 Range/Units 12:15 06:40 Sodium 139 141 (137-145) mmol/L Potassium 4.2 3.9 (3.5-5.1) mmol/L Chloride 104 102 (98-107) mmol/L Carbon Dioxide 28 29 (22-30) mmol/L BUN 22 H 20 (9-20) mg/dL Creatinine 1.03 1.00 (0.66-1.25) mg/dL Glucose 92 101 H (74-99) mg/dL Calcium 9.2 9.6 (8.4-10.2) mg/dL AST 31 32 (17-59) U/L ALT 28 29 (21-72) U/L Alkaline Phosphatase 67 83 (38-126) U/L Total Protein 6.3 6.7 (6.3-8.2) g/dL Albumin 3.7 4.1 (3.5-5.0) g/dL Current Medications Generic Name Dose Route Start Last Admin Trade Name Freq PRN Reason Stop Dose Admin Aspirin 81 mg 06/28/19 09:00 06/28/19 08:32 Aspirin PO 81 mg DAILY ENMANUEL Administration Finasteride 5 mg 06/27/19 21:00 06/27/19 20:49 Proscar PO 5 mg HS ENMANUEL Administration Furosemide 40 mg 06/27/19 21:00 06/28/19 08:32 Lasix IV 40 mg Q12HR ENMANUEL Administration Sodium Chloride 1,000 mls @ 20 mls/hr 06/27/19 14:45 06/27/19 15:15 Saline 0.9% IV 20 mls/hr .Q24H ENMANUEL Administration Meclizine HCl 12.5 mg 06/27/19 16:22 Antivert PO BID PRN Vertigo Metoprolol Succinate 25 mg 06/27/19 21:00 06/27/19 20:49 Toprol Xl PO 25 mg HS ENMANUEL Administration Miscellaneous Information 0 each 06/27/19 16:34 Coumadin Per Pharmacy MISCELLANE DIRECTED PRN PER [facility] Pantoprazole Sodium 40 mg 06/28/19 07:30 06/28/19 08:32 Protonix PO 40 mg AC-BRKFST ENMANUEL Administration Trazodone HCl 50 mg 06/27/19 16:22 Desyrel PO HS PRN Insomnia Warfarin Sodium 7.5 mg 06/28/19 18:00 Coumadin PO 06/28/19 18:01 ONCE@1800 ONE Intake and Output 06/27/19 06/28/19 06/28/19 22:59 06:59 14:59 Output Total 1200 Balance -1200 Output: Urine 1200 Other: Voiding Method Bedside Commode Bedside Commode Urinal Urinal Diaper Diaper Incontinent Incontinent # Voids 4 2 Weight 94 kg 06/28/19 06:40 06/28/19 06:40
[2019-06-28] MEDS: SODIUM CHLORIDE 0.9% 1,000 ML IV SCH (13:40)
[2019-06-28 14:26] VITALS: BMI 28.9
[2019-06-28] MEDS ORDERED: WARFARIN 5 MG TAB PO SCH (18:00)
[2019-06-28] MEDS ORDERED: WARFARIN 7.5 MG TAB PO ONE (18:00)
[2019-06-28] MEDS: FINASTERIDE 5 MG TAB PO SCH (20:52)
[2019-06-28] MEDS: METOPROLOL SUCCINATE (ER) 25 MG TAB.ER.24H PO SCH (20:52)
[2019-06-29 08:06] LABS: Basophils % (A) 0 %; Eosinophils # (A) 0.1 k/uL (0-0.7); Eosinophils % (A) 1 %; HCT 40.6 % (39.0-53.0); HGB 12.8 gm/dL (13.0-17.5); Lymphocytes # (A) 1.3 k/uL (1.0-4.8); Lymphocytes % (A) 12 %; MCHC 31.6 g/dL (31.0-37.0); MCV 88.7 fL (80.0-100.0); Mean Platelet Volume 6.7; Monocytes # (A) 0.6 k/uL (0-1.0); Monocytes % (A) 5 %; Neutrophils # (A) 8.8 k/uL (1.3-7.7); Neutrophils % (A) 81 %; Platelet Count 245 k/uL (150-450); RBC 4.58 m/uL (4.30-5.90); RDW 13.8 % (11.5-15.5); WBC 10.8 k/uL (3.8-10.6)
[2019-06-29 08:21] LABS: Calcium 9.6 mg/dL (8.4-10.2); INR 1.8 (<1.2); Magnesium 2.1 mg/dL (1.6-2.3); Potassium 3.7 mmol/L (3.5-5.1); Prothrombin Time 17.6 sec (9.0-12.0)
--- NOTE | 2019-06-29 09:00 | ECHOF ---
Referral Reason:chf MEASUREMENTS -------- HEIGHT: 180.3 cm WEIGHT: 93.9 kg BP: 179/88 IVSd: 1.7 cm (0.6 - 1.1) LVIDd: 5.5 cm (3.9 - 5.3) LVPWd: 1.5 cm (0.6 - 1.1) IVSs: 2.2 cm LVIDs: 3.6 cm LVPWs: 2.1 cm LA Diam: 4.4 cm (2.7 - 3.8) RVIDd: 3.8 cm (< 3.3) LAESV Index (A-L): 43.87 ml/m Ao Diam: 4.1 cm (2.0 - 3.7) AV Cusp: 2.0 cm (1.5 - 2.6) EPSS: 1.0 cm MV E Preston: 0.74 m/s MV DecT: 206 ms MV A Preston: 0.35 m/s MV E/A Ratio: 2.15 AR PHT: 987 ms RAP: 5.00 mmHg RVSP: 56.79 mmHg MV EF SLOPE: 44.63 mm/s (70 - 150) MV EXCURSION: 18.05 mm (> 18.000) FINDINGS -------- A-V paced rhythm. This was a technically good study. The left ventricular size is normal. There is severe concentric left ventricular hypertrophy. Ove rall left ventricular systolic function is moderate-severely impaired with, an EF between 30 - 35 %. The right ventricle is mild to moderately enlarged. LA is severely dilated >40 ml/m2 The right atrium is normal in size. Interatrial and interventricular septum intact. There is mild aortic valve sclerosis. There is mild aortic regurgitation. The mitral valve leaflets are mildly thickened. Mild mitral annular calcification present. Mild m itral regurgitation is present. Mild tricuspid regurgitation present. There is severe pulmonary hypertension. The right ventricul ar systolic pressure, as measured by Doppler, is 56.79mmHg. Moderate pulmonic regurgitation. The aortic root is dilated measuring 4.1cm. Normal inferior vena cava with normal inspiratory collapse consistent with estimated right atrial pre ssure of 5 mmHg. The inferior vena cava is mildly dilated. There is no pericardial effusion. CONCLUSIONS -------- 1. A-V paced rhythm. 2. This was a technically good study. 3. The left ventricular size is normal. 4. There is severe concentric left ventricular hypertrophy. 5. Overall left ventricular systolic function is moderate-severely impaired with, an EF between 30 - 35 %. 6. The right ventricle is mild to moderately enlarged. 7. LA is severely dilated >40 ml/m2 8. The right atrium is normal in size. 9. Interatrial and interventricular septum intact. 10. There is mild aortic valve sclerosis. 11. There is mild aortic regurgitation. 12. The mitral valve leaflets are mildly thickened. 13. Mild mitral annular calcification present. 14. Mild mitral regurgitation is present. 15. Mild tricuspid regurgitation present. 16. There is severe pulmonary hypertension. 17. The right ventricular systolic pressure, as measured by Doppler, is 56.79mmHg. 18. Moderate pulmonic regurgitation. 19. The aortic root is dilated measuring 4.1cm. 20. Normal inferior vena cava with normal inspiratory collapse consistent with estimated right atrial pressure of 5 mmHg. 21. The inferior vena cava is mildly dilated. 22. There is no pericardial effusion. MEDICAL SALES REPRESENTATIVE: Aga Calderon RDCS
[2019-06-29] MEDS: SODIUM CHLORIDE 0.9% 1,000 ML IV SCH (09:04)
[2019-06-29] MEDS: ASPIRIN 81 MG PO SCH (09:08)
[2019-06-29] MEDS: FUROSEMIDE 10 MG/ML 4 ML VIAL IV SCH (09:08)
[2019-06-29] MEDS: PANTOPRAZOLE 40 MG TABLET PO SCH (09:08)
--- NOTE | 2019-06-29 09:43 | P.PN ---
Subjective Progress Note Date: 06/29/19 Principal diagnosis: edema Patient is 88-year-old male past medical history of atrial fibrillation, TIA, hypertension, and dyslipidemia who presented to the emergency department with shortness of breath and lower extremity edema. In the ER he underwent an extensive evaluation. On arrival his vital signs within normal limits. Laboratory analysis showed an elevated BNP at 3300 and troponin was negative. Chest x-ray showed interstitial prominence and interstitial disease consistent with congestive heart failure. He underwent a left lower extremity venous Doppler which was negative for DVT. He was diagnosed with congestive heart failure and started on IV Lasix. He was admitted for further monitoring. Echocardiogram demonstrated an ejection fraction of 30-35% which is old per cardiology's notes. He had some urinary retention and Vasquez catheter was placed . He was noted to have significant confusion which is different than baseline per his . He has been unable to ambulate independently. Patient seen and examined at bedside. Still confused. Denies any shortness of breath, cough, nausea, or vomiting. Complains of the bathroom. Objective - Vital Signs Vital signs: Vital Signs Temp 97.9 F 06/29/19 04:55 Pulse 61 06/29/19 04:55 Resp 16 06/29/19 04:55 BP 165/69 06/29/19 04:55 Pulse Ox 94 L 06/29/19 04:55 Intake & Output 06/28/19 06/29/19 06/29/19 18:59 06:59 18:59 Intake Total 80 240 Output Total 2500 Balance 80 -2260 Weight 94 kg Intake: Intake, IV Titration 80 Amount Sodium Chloride 0.9% 1, 80 000 ml @ 20 mls/hr IV . Q24H [facility] Rx#:[id number] Oral 240 Output: Urine 2500 Uretheral (Vasquez) 2000 Other: Voiding Method Bedside Commode Indwelling Catheter Urinal Diaper Incontinent - Exam General: non toxic, no distress, appears at stated age Derm: warm, dry Head: atraumatic, normocephalic, symmetric Eyes: EOMI, no lid lag, anicteric sclera Mouth: no lip lesion, mucus membranes moist Cardiovascular: S1-S2 irregular with systolic murmur, positive posterior tibial pulse bilateral, Lungs: Decreased breath sounds bilateral, no rhonchi, no rales , no accessory muscle use Abdominal: soft, nontender to palpation, no guarding, no appreciable organomegaly Ext: no gross muscle atrophy, 2+ lower extremity edema, no contractures Neuro: CN II-XI grossly intact, no focal neuro deficits Psych: Alert, oriented, appropriate affect - Labs CBC & Chem 7: 06/29/19 06:58 06/29/19 06:58 Labs: Abnormal Lab Results - Last 24 Hours (Table) 06/29/19 06/29/19 06/29/19 Range/Units 06:58 06:58 06:58 WBC 10.8 H (3.8-10.6) k/uL Hgb 12.8 L (13.0-17.5) gm/dL Neutrophils # 8.8 H (1.3-7.7) k/uL PT 17.6 H (9.0-12.0) sec INR 1.8 H (<1.2) Carbon Dioxide 31 H (22-30) mmol/L Glucose 102 H (74-99) mg/dL Assessment and Plan Assessment: Acute exacerbation of systolic congestive heart failure -Continue with Lasix -Continue with home metoprolol, start lisinopril -Strict I's and O's, daily weights -Cardiology recos appreciated Atrial fibrillation with subtherapeutic Coumadin coagulopathy -Pharmacy to dose Coumadin -Continue with metoprolol -Follow heart rates -Cardiology recommendations Hypertension, slightly elevated -Continue with metoprolol -Follow blood pressures toxic encephalopathy, suspect underlying memory loss - increasing WBC - check UA and CXR - supportive care - check bladder scan to rule out urinary retention with over flow incontinence Dyslipidemia -Not on medication chronically -We'll leave to the discretion of PCP whether or not this needs to be started History of vertigo - orthostatics when able to stand Debility - pt/ot evaluation HX of complete heart block s/p PPM DVT prophylaxis: coumadin Discussed with: patient, nursing, no family present at bedside Anticipated discharge: 1-[address]: home vs SNF A total of 25 minutes was spent on the care of this complex patient more than 50% of the time was spent in counseling and care coordination.
--- NOTE | 2019-06-29 10:21 | XR ---
EXAMINATION TYPE: XR chest 1V portable DATE OF EXAM: 06/29/2019 HISTORY: chf, pneumonia. REFERENCE: Previous study dated 06/27/2019. FINDINGS: There has been a midline sternotomy. There is a multilead pacing device in place on the lef t. The heart is enlarged. There is increased opacity in the region of the right midlung. Pleural spaces are clear. IMPRESSION: I CANNOT EXCLUDE DEVELOPING PNEUMONIA IN THE RIGHT LOWER LOBE.
[2019-06-29 10:48] LABS: Appearance,Urine Clear (Clear); Bacteria,Urine Rare /hpf; Bilirubin,Urine Negative (Negative); Blood,Urine Small (Negative); Color,Urine Light Yellow; Glucose,Urine (UA) Negative (Negative); Hyaline Casts,Urine 26 /lpf (0-2); Ketones,Urine Negative (Negative); Leukocyte Esterase,Urine Large (Negative); Mucus,Urine Rare /hpf; Nitrite,Urine Negative (Negative); PH, Urine 6.5 (5.0-8.0); Protein,Urine Negative (Negative); RBC,Urine 10 /hpf (0-5); Specific Gravity,Urine 1.008 (1.001-1.035); Urobilinogen,Urine <2.0 mg/dL (<2.0)
[2019-06-29] MEDS: LOSARTAN 25 MG TAB PO SCH (11:12)
--- NOTE | 2019-06-29 13:48 | P.PN ---
Subjective Progress Note Date: 06/29/19 Patient is 88-year-old male past medical history of nonischemic cardiomyopathy, atrial fibrillation, complete heart block status post biventricular pacemaker, hypertension, and dyslipidemia who follows with Dr. Newell in the office. He presented to the emergency department yesterday with shortness of breath and lower extremity edema. EKG showed paced rhythm. Laboratory analysis showed elevated BNP at 3300 and troponin was negative. Chest x-ray showed interstitial prominence and interstitial disease. He underwent a left lower extremity venous Doppler which was negative for DVT. 06/28/19 On exam, he was quite confused today. He denied any cardiac symptoms, other than swelling in his legs. He was noted to be very unsteady on his feet. Continue diuresis with furosemide 40 mg IV every 12. Daily weights and I&O monitoring. Orthostatic blood pressure assessment. Repeat Echocardiogram. Discontinue nitoglycerin patch. Device interrogation to be done. 06/29/19 Patient's mental status has significantly improved today, which is confirmed by his . He denies any chest pain, chest pressure, palpitations, dizziness, lightheadedness. He is currently sitting comfortably in a chair. Positive orthostatic blood pressures. WBC 10.8, hemoglobin 12.8, hematocrit 40.6, platelet 245, sodium 139, potassium 3.7, BUN 20, creatinine 0.98. Urine studies positive for infection. Awaiting culture. Echocardiogram revealed LV function at 30-35% with mild aortic sclerosis, mild aortic regurgitation, mild mitral regurgitation and severe pulmonary hypertension. Objective - Vital Signs Vital signs: Vital Signs Temp 98 F 06/29/19 12:03 Pulse 68 06/29/19 12:03 Resp 20 06/29/19 12:03 BP 138/78 06/29/19 12:03 Pulse Ox 93 L 06/29/19 12:03 Intake & Output 06/28/19 06/29/19 06/29/19 18:59 06:59 18:59 Intake Total 80 240 Output Total 2500 Balance 80 -2260 Weight 94 kg Intake: Intake, IV Titration 80 Amount Sodium Chloride 0.9% 1, 80 000 ml @ 20 mls/hr IV . Q24H [facility] Rx#:[id number] Oral 240 Output: Urine 2500 Uretheral (Vasquez) 2000 Other: Voiding Method Bedside Commode Indwelling Catheter Indwelling Catheter Urinal Diaper Incontinent - Exam GENERAL: Well-appearing, well-nourished and in no acute distress. NECK: Supple without JVD or thyromegaly. LUNGS: Breath sounds clear to auscultation bilaterally. Respiration equal and unlabored. No wheezes, rales or rhonchi. HEART: Regular rate and rhythm. Systolic murmur. No rubs or gallops. S1 and S2 heard. EXTREMITIES: Normal range of motion. +2 edema. No clubbing or cyanosis. Peripheral pulses intact and strong. - Labs CBC & Chem 7: 06/29/19 06:58 06/29/19 06:58 Labs: Abnormal Lab Results - Last 24 Hours (Table) 06/29/19 06/29/19 06/29/19 Range/Units 06:58 06:58 06:58 WBC 10.8 H (3.8-10.6) k/uL Hgb 12.8 L (13.0-17.5) gm/dL Neutrophils # 8.8 H (1.3-7.7) k/uL PT 17.6 H (9.0-12.0) sec INR 1.8 H (<1.2) Carbon Dioxide 31 H (22-30) mmol/L Glucose 102 H (74-99) mg/dL Urine Blood (Negative) Ur Leukocyte Esterase (Negative) Urine RBC (0-5) /hpf Urine WBC (0-5) /hpf Urine Bacteria (None) /hpf Hyaline Casts (0-2) /lpf Urine Mucus (None) /hpf 06/29/19 Range/Units 10:25 WBC (3.8-10.6) k/uL Hgb (13.0-17.5) gm/dL Neutrophils # (1.3-7.7) k/uL PT (9.0-12.0) sec INR (<1.2) Carbon Dioxide (22-30) mmol/L Glucose (74-99) mg/dL Urine Blood Small H (Negative) Ur Leukocyte Esterase Large H (Negative) Urine RBC 10 H (0-5) /hpf Urine WBC 17 H (0-5) /hpf Urine Bacteria Rare H (None) /hpf Hyaline Casts 26 H (0-2) /lpf Urine Mucus Rare H (None) /hpf Assessment and Plan Assessment: FINAL ASSESSMENT AND PLAN: #1 nonischemic cardiomyopathy, previous EF 35% #2 congestive heart failure, acute systolic #3 complete heart block status post biventricular pacemaker #4 paroxysmal atrial fibrillation, on Coumadin #5 hypertension #6 dyslipidemia #7 urinary tract infection #8 pulmonary hypertension Plan: Convert IV Lasix back to 40 mg twice a day by mouth. Encourage ambulation with physical therapy. Primary care team to address abnormal urine studies.
[2019-06-29] MEDS: FUROSEMIDE 40 MG TAB PO SCH (17:49)
[2019-06-29] MEDS ORDERED: WARFARIN 5 MG TAB PO SCH (18:00)
[2019-06-29] MEDS ORDERED: WARFARIN 3 MG TAB PO ONE (18:00)
[2019-06-29] MEDS: FINASTERIDE 5 MG TAB PO SCH (21:02)
[2019-06-29] MEDS: METOPROLOL SUCCINATE (ER) 25 MG TAB.ER.24H PO SCH (21:02)
[2019-06-30 07:36] LABS: Basophils % (A) 0 %; Eosinophils # (A) 0.1 k/uL (0-0.7); Eosinophils % (A) 1 %; HCT 39.9 % (39.0-53.0); HGB 12.9 gm/dL (13.0-17.5); Lymphocytes # (A) 1.2 k/uL (1.0-4.8); Lymphocytes % (A) 11 %; MCH 28.7 pg (25.0-35.0); MCHC 32.2 g/dL (31.0-37.0); MCV 89.3 fL (80.0-100.0); Mean Platelet Volume 6.8; Monocytes # (A) 0.7 k/uL (0-1.0); Monocytes % (A) 6 %; Neutrophils # (A) 8.9 k/uL (1.3-7.7); Neutrophils % (A) 81 %; Platelet Count 249 k/uL (150-450); RBC 4.47 m/uL (4.30-5.90); RDW 13.9 % (11.5-15.5); WBC 11.1 k/uL (3.8-10.6)
[2019-06-30 07:43] LABS: INR 1.9 (<1.2)
[2019-06-30 07:50] LABS: Calcium 9.5 mg/dL (8.4-10.2); Potassium 3.9 mmol/L (3.5-5.1)
[2019-06-30] MEDS: ASPIRIN 81 MG PO SCH (07:59)
[2019-06-30] MEDS: FUROSEMIDE 40 MG TAB PO SCH ×2 (07:59→12:00)
[2019-06-30] MEDS: PANTOPRAZOLE 40 MG TABLET PO SCH (07:59)
[2019-06-30] MEDS ORDERED: AZITHROMYCIN 500 MG TAB PO STA (08:22)
[2019-06-30] MEDS: LOSARTAN 25 MG TAB PO SCH (08:52)
[2019-06-30] MEDS: SODIUM CHLORIDE 0.9% 1,000 ML IV SCH (17:29)
[2019-06-30] MEDS ORDERED: WARFARIN 7.5 MG TAB PO ONE (18:00)
--- NOTE | 2019-06-30 18:13 | P.PN ---
Subjective Progress Note Date: 06/30/19 (delayed charting patient seen at 1215) Principal diagnosis: edema Patient is 88-year-old male past medical history of atrial fibrillation, TIA, hypertension, and dyslipidemia who presented to the emergency department with shortness of breath and lower extremity edema. In the ER he underwent an extensive evaluation. On arrival his vital signs within normal limits. Laboratory analysis showed an elevated BNP at 3300 and troponin was negative. Chest x-ray showed interstitial prominence and interstitial disease consistent with congestive heart failure. He underwent a left lower extremity venous Doppler which was negative for DVT. He was diagnosed with congestive heart failure and started on IV Lasix. He was admitted for further monitoring. Echocardiogram demonstrated an ejection fraction of 30-35% which is old per cardiology's notes. He had some urinary retention and Vasquez catheter was placed. He was noted to have significant confusion which is different than baseline per his . He has been unable to ambulate independently. He is on have some urinary retention a Vasquez catheter was placed. He started having elevated white blood cell count and chest x-ray was obtained which demonstrated developing right lower lobe pneumonia. He was started on Rocephin and Zithromax. On the morning of 06/30 he had a slight fall on his blood pressure with sitting, he had been recently started on Cozaar secondary to his low ejection fraction. This was subsequently discontinued. Patient's Lasix was held as well. Patient seen and examined at bedside. present at bedside. All cautions answered. No chest pain, shortness of breath, or nausea. Per she is unable to care for him at home at this point in time and he will need prison on discharge. Objective - Vital Signs Vital signs: Vital Signs Temp 97.9 F 06/30/19 12:43 Pulse 60 06/30/19 12:43 Resp 16 06/30/19 12:43 BP 111/64 06/30/19 16:31 Pulse Ox 96 06/30/19 12:43 Intake & Output 06/29/19 06/30/19 06/30/19 18:59 06:59 18:59 Intake Total 665 50 Output Total 500 480 700 Balance -500 185 -650 Intake: Intake, IV Titration 50 Amount cefTRIAXone 1 gm In 50 Sodium Chloride 0.9% 50 ml @ 100 mls/hr IVPB Q24HR [facility] Rx#:[id number] Oral 665 Output: Urine 500 480 700 Uretheral (Vasquez) 480 700 Other: Voiding Method Indwelling Catheter Indwelling Catheter Indwelling Catheter # Bowel Movements 1 4 - Exam General: non toxic, no distress, appears at stated age Derm: warm, dry Head: atraumatic, normocephalic, symmetric Eyes: EOMI, no lid lag, anicteric sclera Mouth: no lip lesion, mucus membranes moist Cardiovascular: S1-S2 irregular with systolic murmur, positive posterior tibial pulse bilateral, Lungs: course breath sounds bilateral, no rhonchi, no rales , no accessory muscle use Abdominal: soft, nontender to palpation, no guarding, no appreciable o rganomegaly Ext: no gross muscle atrophy, trace lower extremity edema, no contractures Neuro: CN II-XI grossly intact, no focal neuro deficits Psych: awake but confused, appropriate affect - Labs CBC & Chem 7: 06/30/19 06:33 06/30/19 06:33 Labs: Abnormal Lab Results - Last 24 Hours (Table) 06/30/19 06/30/19 06/30/19 Range/Units 06:33 06:33 06:33 WBC 11.1 H (3.8-10.6) k/uL Hgb 12.9 L (13.0-17.5) gm/dL Neutrophils # 8.9 H (1.3-7.7) k/uL PT 19.0 H (9.0-12.0) sec INR 1.9 H (<1.2) Sodium 136 L (137-145) mmol/L Chloride 96 L (98-107) mmol/L Carbon Dioxide 32 H (22-30) mmol/L BUN 27 H (9-20) mg/dL Glucose 110 H (74-99) mg/dL Microbiology - Last 24 Hours (Table) 06/29/19 10:25 Urine Culture - Final Urine,Catheterized Assessment and Plan Assessment: Acute exacerbation of systolic congestive heart failure, EF 30-35% -hold lasix due to hypotension, stop cozaar -Continue with home metoprolol -Strict I's and O's, daily weights -Cardiology recs appreciated Atrial fibrillation with subtherapeutic Coumadin coagulopathy -Pharmacy to dose Coumadin -Continue with metoprolol -Follow heart rates -Cardiology recommendations Right pneumonia, possible gram negative - zithromax and rocephin - repeat CBC and CXR in AM - pulm hygeine hypotension today with hx of hypertension - stop cozaar and hold lasix -Continue with metoprolol -Follow blood pressures toxic encephalopathy with underlying dementia - supportive care Dyslipidemia -Not on medication chronically -Leave to the discretion of PCP whether or not this needs to be started History of vertigo - orthostatics when able to stand Debility - pt/ot evaluation HX of complete heart block s/p PPM DVT prophylaxis: coumadin Discussed with: patient, nursing, Anticipated discharge: 1-[address]: SNF A total of 25 minutes was spent on the care of this complex patient more than 50% of the time was spent in counseling and care coordination.
[2019-06-30] MEDS: FINASTERIDE 5 MG TAB PO SCH (22:23)
[2019-06-30] MEDS: METOPROLOL SUCCINATE (ER) 25 MG TAB.ER.24H PO SCH (22:23)
[2019-07-01 07:30] LABS: INR 2.2 (<1.2); Prothrombin Time 21.9 sec (9.0-12.0)
[2019-07-01 08:19] VITALS: TEMP 97.9
[2019-07-01] MEDS ORDERED: AZITHROMYCIN 500 MG TAB PO SCH (09:00)
[2019-07-01 09:06] LABS: HCT 39.9 % (39.0-53.0); HGB 13.4 gm/dL (13.0-17.5); MCH 29.8 pg (25.0-35.0); MCHC 33.5 g/dL (31.0-37.0); Mean Platelet Volume 6.3; Platelet Count 266 k/uL (150-450); RBC 4.49 m/uL (4.30-5.90); RDW 13.7 % (11.5-15.5); WBC 9.7 k/uL (3.8-10.6)
[2019-07-01 09:31] LABS: Calcium 9.6 mg/dL (8.4-10.2)
[2019-07-01] MEDS: ASPIRIN 81 MG PO SCH (09:41)
[2019-07-01 12:03] VITALS: BP 117/71; PULSE 69; RESP 17
--- NOTE | 2019-07-01 13:22 | P.DS ---
Providers Date of admission: 06/29/19 13:59 Expected date of discharge: 07/01/19 Attending physician: Jessica Carr MD Consults: 06/27/19 14:44 Consult Physician Stat Consulting Provider: Fito Newell Consult Reason/Comments: CHF Do you want consulting provider notified?: Yes Primary care physician: [facility] Course: Discharge Diagnosis: Acute exacerbation of systolic congestive heart failure with ejection fraction 30-35% A. fib with subtherapeutic. Coumadin coagulopathy Right-sided pneumonia, possible gram-negative One episode of hypotension. It had been initiated on Cozaar which was stopped. Toxic metabolic encephalopathy with underlying dementia Dyslipidemia History of vertigo Debility Hospital Course: Patient is 88-year-old male past medical history of atrial fibrillation, TIA, hypertension, and dyslipidemia who presented to the emergency department with shortness of breath and lower extremity edema. In the ER he underwent an extensive evaluation. On arrival his vital signs within normal limits. Laboratory analysis showed an elevated BNP at 3300 and troponin was neg ative. Chest x-ray showed interstitial prominence and interstitial disease consistent with congestive heart failure. He underwent a left lower extremity venous Doppler which was negative for DVT. He was diagnosed with congestive heart failure and started on IV Lasix. He was admitted for further monitoring. Echocardiogram demonstrated an ejection fraction of 30-35% which is old per cardiology's notes. He had some urinary retention and Vasquez catheter was placed. He was noted to have significant confusion which is different than baseline per his . He has been unable to ambulate independently. He is on have some urinary retention a Vasquez catheter was placed. He started having elevated white blood cell count and chest x-ray was obtained which demonstrated developing right lower lobe pneumonia. He was started on Rocephin and Zithromax. On the morning of 06/30 he had a slight fall on his blood pressure with sitting, he had been recently started on Cozaar secondary to his low e jection fraction. This was subsequently discontinued. Patient's Lasix was held as well. HIs blood presure rebounded appropriately. On the morning of 07/01 his BP was improved, his WBC count had normalized and he appeared much improved clinically. He was determined stable for discharge. He will complete a course of zithromax and cefdinir. Repeat CXR in 1 week and repeat BMP in 5 days. Follow INR closely with antibiotic use. Patient seen and examined at bedside. No chest pain, SOB, nausea, vomiting, diarrhea. Still some dizziness which appears consistent with known history of vertigo. Vital signs reviewed and stable. General: non toxic, no distress, appears at stated age Derm: warm, dry Head: atraumatic, normocephalic, symmetric Eyes: EOMI, no lid lag, anicteric sclera Mouth: no lip lesion, mucus membranes moist Cardiovascular: S1S2 reg, no murmur, positive posterior tibial pulse bilateral, Lungs: CTA bilateral, no rhonchi, no rales , no accessory muscle use Abdominal: soft, nontender to palpation, no guarding, no appreciable organomegaly Ext: no gross muscle atrophy, no edema, no contractures Neuro: CN II-XI grossly intact, no focal neuro deficits Psych: Alert, oriented, appropriate affect A total of 35 minutes of time were spent preparing this complex discharge summary . Patient Condition at Discharge: Good Plan - Discharge Summary New Discharge Prescriptions: New Furosemide [Lasix] 40 mg PO DAILY #30 tablet Cefdinir [Omnicef] 300 mg PO Q12HR #10 capsule Azithromycin [Zithromax] 500 mg PO DAILY #5 tab Continue Warfarin [Coumadin] 5 mg PO SUSA Finasteride [Proscar] 5 mg PO HS Aspirin [Adult Low Dose Aspirin EC] 81 mg PO DAILY Omeprazole [PriLOSEC] 20 mg PO AC-BRKFST traZODone HCL 50 - 100 mg PO HS Meclizine [Antivert] 12.5 mg PO BID PRN PRN Reason: Vertigo Metoprolol Succinate [Toprol XL] 25 mg PO HS Warfarin [Coumadin] 7.5 mg PO MOTUWETHFR Discontinued Furosemide [Lasix] 20 mg PO DAILY Discharge Medication List Aspirin [Adult Low Dose Aspirin EC] 81 mg PO DAILY 05/04/16 [History] Finasteride [Proscar] 5 mg PO HS 05/04/16 [History] Warfarin [Coumadin] 5 mg PO SUSA 05/04/16 [History] Omeprazole [PriLOSEC] 20 mg PO AC-BRKFST 02/13/17 [History] traZODone HCL 50 - 100 mg PO HS 08/15/17 [History] Meclizine [Antivert] 12.5 mg PO BID PRN 01/17/18 [History] Metoprolol Succinate [Toprol XL] 25 mg PO HS 06/27/19 [History] Warfarin [Coumadin] 7.5 mg PO MOTUWETHFR 06/27/19 [History] Azithromycin [Zithromax] 500 mg PO DAILY #5 tab 07/01/19 [Rx] Cefdinir [Omnicef] 300 mg PO Q12HR #10 capsule 07/01/19 [Rx] Furosemide [Lasix] 40 mg PO DAILY #30 tablet 07/01/19 [Rx] Follow up Appointment(s)/Referral(s): Fito Newell MD [STAFF PHYSICIAN] - 2 Weeks Quinn Ricci MD [Primary Care Provider] - 1-2 days Activity/Diet/Wound Care/Special Instructions: Please use medication as discussed. Please follow up with family doctor if symptoms have not improved over the next two days. Please return to the emergency room if your symptoms increase or worsen or for any other concerns.
[2019-07-01] MEDS: PANTOPRAZOLE 40 MG TABLET PO SCH (13:35)
[2019-07-01] MEDS ORDERED: WARFARIN 7.5 MG TAB PO ONE (18:00)
== END 2019-07-01 16:04 | DRG 291 ==
LOC: EC 11:08 → 3NMEDONC 14:43 → OBSVTOIN 06-29 13:59
PROVIDERS: ADMIT Family Medicine; ATTEND Family Medicine
DX: I11.0 Hypertensive heart disease with heart failure (principal); G92 Toxic encephalopathy; J15.6 Pneumonia due to other Gram-negative bacteria; I48.20 Chronic atrial fibrillation, unspecified; I44.2 Atrioventricular block, complete; I50.23 Acute on chronic systolic (congestive) heart failure; I42.8 Other cardiomyopathies; I95.9 Hypotension, unspecified; E78.5 Hyperlipidemia, unspecified; M19.90 Unspecified osteoarthritis, unspecified site; E66.9 Obesity, unspecified; K21.9 Gastro-esophageal reflux disease without esophagitis; N40.0 Benign prostatic hyperplasia without lower urinary tract symptoms; G47.00 Insomnia, unspecified; R53.81 Other malaise; R41.0 Disorientation, unspecified; I27.20 Pulmonary hypertension, unspecified; I25.10 Atherosclerotic heart disease of native coronary artery without angina pectoris; F03.90 Unspecified dementia, unspecified severity, without behavioral disturbance, psychotic disturbance, mood disturbance, and anxiety; R42 Dizziness and giddiness; I08.3 Combined rheumatic disorders of mitral, aortic and tricuspid valves; G89.29 Other chronic pain; R33.9 Retention of urine, unspecified; M54.40 Lumbago with sciatica, unspecified side; R79.1 Abnormal coagulation profile; Z79.82 Long term (current) use of aspirin; Z79.01 Long term (current) use of anticoagulants; Z79.899 Other long term (current) drug therapy; Z86.73 Personal history of transient ischemic attack (TIA), and cerebral infarction without residual deficits; I25.2 Old myocardial infarction; Z90.49 Acquired absence of other specified parts of digestive tract; Z95.1 Presence of aortocoronary bypass graft; Z98.890 Other specified postprocedural states; Z87.891 Personal history of nicotine dependence; Z80.7 Family history of other malignant neoplasms of lymphoid, hematopoietic and related tissues; Z68.29 Body mass index [BMI] 29.0-29.9, adult; Z95.0 Presence of cardiac pacemaker
CPT/HCPCS: 36415; 71045; 71046; 80048; 80053; 81001; 82150; 83690; 83735; 83880; 84484; 85025; 85027; 85610; 85730; 87086; 93005; 93306; 94760; 96361; 96374; 99285

== ENCOUNTER 2020-08-17 07:47 | Emergency (ER) | payer MEDICARE ==
[2020-08-17 07:57] VITALS: TEMP 97.9
--- NOTE | 2020-08-17 08:12 | ED ---
Altered Mental Status HPI - General Chief Complaint: Altered Mental Status Stated Complaint: weakness Time Seen by Provider: 08/17/20 07:50 Source: patient, EMS Mode of arrival: EMS Limitations: altered mental status - History of Present Illness Initial Comments: Patient is an 89-year-old male who is transferred to our facility from [facility]. Patient has diagnosed covid and has been undergoing treatment. He reports the patient had seemed more confused today with increased work of breathing. States they were concerned for pneumonia therefore sent the patient to the emergency room for evaluation. Patient arrives and is a poor historian however has no complaints. Denies chest pain or shortness of breath. No abdominal pain. No nausea vomiting or diarrhea. States had a good appetite. Reports that he does not like his the facility because they "dont treat him right." He denies any headaches or visual changes. He is alert and oriented. Denies any visual changes. No changes in his bowel or bladder habits. No alleviating, precipitating or modifying factors - Related Data Home Medications Medication Instructions Recorded Confirmed Finasteride [Proscar] 5 mg PO DAILY@0900 05/04/16 08/17/20 Omeprazole [PriLOSEC] 20 mg PO DAILY@0600 02/13/17 08/17/20 Metoprolol Succinate [Toprol XL] 25 mg PO HS@2100 06/27/19 08/17/20 Acetaminophen Tab [Tylenol] 650 mg PO Q4H PRN 08/17/20 08/17/20 Apixaban [Eliquis] 5 mg PO BID@0900,2100 08/17/20 08/17/20 Aspirin 81 mg PO DAILY@0900 08/17/20 08/17/20 Clotrimazole/Betamethasone Dip 1 applic TOPICAL BID 08/17/20 08/17/20 [Lotrisone Cream] Dexamethasone See Taper PO DIRECTED 08/17/20 08/17/20 Furosemide [Lasix] 20 mg PO BID@0600,1400 08/17/20 08/17/20 Lactose-Reduced Food [Ensure Plus] 1 can PO BID@0900,1700 08/17/20 08/17/20 Meclizine [Antivert] 12.5 mg PO BID PRN 08/17/20 08/17/20 Midodrine HCl [ProAmatine] 10 mg PO TID@0800,1200,1700 08/17/20 08/17/20 Natural Balance Tears 1 drop BOTH EYES BID@0900,2100 08/17/20 08/17/20 Pantoprazole Sodium [Protonix] 40 mg PO DAILY@0900 08/17/20 08/17/20 Polyethylene Glycol 3350 [Miralax] 17 gm PO DAILY@0900 08/17/20 08/17/20 Spironolactone [Aldactone] 25 mg PO DAILY@0900 08/17/20 08/17/20 Tamsulosin [Flomax] 0.4 mg PO Q48H 08/17/20 08/17/20 busPIRone HCl [Buspar] 5 mg PO TID@0900,1300,1800 08/17/20 08/17/20 traZODone HCL 75 mg PO HS@2100 08/17/20 08/17/20 Previous Rx's Medication Instructions Recorded Azithromycin [Zithromax] 500 mg PO DAILY #5 tab 07/01/19 Allergies Allergy/AdvReac Type Severity Reaction Status Date / Time No Known Allergies Allergy Verified 08/17/20 08:29 Review of Systems ROS Statement: Those systems with pertinent positive or pertinent negative responses have been documented in the HPI. ROS Other: All systems not noted in ROS Statement are negative. Past Medical History Past Medical History: Atrial Fibrillation, CVA/TIA, Hyperlipidemia, Hypertension, Myocardial Infarction (SC), Osteoarthritis (OA) Additional Past Medical History / Comment(s): chronic back pain, sciatica, vertigo, see Dr Newell H & P Last Myocardial Infarction Date:: 1999 History of Any Multi-Drug Resistant Organisms: None Reported Past Surgical History: Cholecystectomy, Coronary Bypass/CABG, Hernia Repair, Pacemaker Additional Past Surgical History / Comment(s): triple bypass 1989 Past Anesthesia/Blood Transfusion Reactions: Motion Sickness Type of Cardiac Device: Permanent Pacemaker Device Placement Date:: 2017 Past Psychological History: No Psychological Hx Reported Smoking Status: Former smoker Past Alcohol Use History: None Reported Past Drug Use History: None Reported - Past Family History Father Family Medical History: Cancer Additional Family Medical History / Comment(s): lymphoma Brother(s) Family Medical History: Cancer General Exam Limitations: altered mental status General appearance: alert, in no apparent distress Head exam: Present: atraumatic, normocephalic, normal inspection Eye exam: Present: normal appearance, PERRL, EOMI. Absent: scleral icterus, conjunctival injection, periorbital swelling ENT exam: Present: normal exam, mucous membranes moist Neck exam: Present: normal inspection. Absent: tenderness, meningismus, lymphadenopathy Respiratory exam: Present: normal lung sounds bilaterally. Absent: respiratory distress, wheezes, rales, rhonchi, stridor Cardiovascular Exam: Present: regular rate, normal rhythm, normal heart sounds. Absent: systolic murmur, diastolic murmur, rubs, gallop, clicks GI/Abdominal exam: Present: soft, normal bowel sounds. Absent: distended, tenderness, guarding, rebound, rigid Extremities exam: Present: normal inspection, full ROM, normal capillary refill. Absent: tenderness, pedal edema, joint swelling, calf tenderness Back exam: Present: normal inspection Neurological exam: Present: alert, oriented X3, CN II-XII intact Psychiatric exam: Present: normal affect, normal mood Skin exam: Present: warm, dry, intact, normal color. Absent: rash Course Vital Signs 08/17/20 08/17/20 08/17/20 07:48 08:56 09:00 Temperature 97.9 F Pulse Rate 65 60 60 Respiratory 18 16 16 Rate Blood Pressure 107/78 121/73 106/69 O2 Sat by Pulse 98 96 98 Oximetry 08/17/20 08/17/20 10:00 10:04 Temperature 97.9 F 97.9 F Pulse Rate 60 60 Respiratory 16 16 Rate Blood Pressure 104/69 121/73 O2 Sat by Pulse 96 96 Oximetry Medical Decision Making - Medical Decision Making Upon review patient is placed in room 16. A thorough history and physical exam was performed. Laboratory studies were conducted. Troponin is mildly elevated at 0.05. Patient reports no chest pain. No EKG changes. Urinalysis demonstrates occasional bacteria. Will await culture results. Chest x-ray demonstrates cardiomegaly. Postoperative postprocedural changes. Probable atelectasis or scarring. Underlying COPD. CT of the patient's brain demonstrates no acute intracranial hemorrhage or midline shift. Moderate to severe diffuse age-related cerebral atrophy. Results are discussed the patient. Patient does have diagnosis covid. No hypoxia or increased work of breathing. At this time the patient is stable for discharge back to his facility. Patient is comfortable with this. If he has any new or worsening symptoms patient to be brought back to the emergency department. He was in agreement with the plan and discharged in stable condition - Lab Data Result diagrams: 08/17/20 08:00 08/17/20 08:00 Lab Results 08/17/20 08/17/20 08/17/20 Range/Units 08:00 08:00 08:00 WBC 6.5 (3.8-10.6) k/uL RBC 4.98 (4.30-5.90) m/uL Hgb 14.6 (13.0-17.5) gm/dL Hct 43.7 (39.0-53.0) % MCV 87.8 (80.0-100.0) fL MCH 29.4 (25.0-35.0) pg MCHC 33.5 (31.0-37.0) g/dL RDW 13.7 (11.5-15.5) % Plt Count 258 (150-450) k/uL MPV 7.7 Neutrophils % 86 % Lymphocytes % 9 % Monocytes % 3 % Eosinophils % 1 % Basophils % 0 % Neutrophils # 5.7 (1.3-7.7) k/uL Lymphocytes # 0.6 L (1.0-4.8) k/uL Monocytes # 0.2 (0-1.0) k/uL Eosinophils # 0.0 (0-0.7) k/uL Basophils # 0.0 (0-0.2) k/uL PT 10.5 (9.0-12.0) sec INR 1.0 (<1.2) APTT 25.9 (22.0-30.0) sec Sodium 136 L (137-145) mmol/L Potassium 4.8 (3.5-5.1) mmol/L Chloride 102 (98-107) mmol/L Carbon Dioxide 28 (22-30) mmol/L Anion Gap 6 mmol/L BUN 37 H (9-20) mg/dL Creatinine 1.17 (0.66-1.25) mg/dL Est GFR (CKD-EPI)AfAm 64 (>60 ml/min/1.73 sqM) Est GFR (CKD-EPI)NonAf 56 (>60 ml/min/1.73 sqM) Glucose 143 H (74-99) mg/dL Plasma Lactic Acid Jonah (0.7-2.0) mmol/L Calcium 9.6 (8.4-10.2) mg/dL Total Bilirubin 1.3 (0.2-1.3) mg/dL AST 50 (17-59) U/L ALT 66 H (4-49) U/L Alkaline Phosphatase 94 (38-126) U/L Creatine Kinase 91 (55-170) U/L Troponin I (0.000-0.034) ng/mL NT-Pro-B Natriuret Pep pg/mL Total Protein 7.0 (6.3-8.2) g/dL Albumin 4.1 (3.5-5.0) g/dL TSH 1.140 (0.465-4.680) mIU/L Urine Color Urine Appearance (Clear) Urine pH (5.0-8.0) Ur Specific [place] (1.001-1.035) Urine Protein (Negative) Urine Glucose (UA) (Negative) Urine Ketones (Negative) Urine Blood (Negative) Urine Nitrite (Negative) Urine Bilirubin (Negative) Urine Urobilinogen (<2.0) mg/dL Ur Leukocyte Esterase (Negative) Urine RBC (0-5) /hpf Urine WBC (0-5) /hpf Ur Squamous Epith Cells (0-4) /hpf Amorphous Sediment (None) /hpf Urine Bacteria (None) /hpf Hyaline Casts (0-2) /lpf Urine Mucus (None) /hpf Urine Yeast (Budding) (None) /hpf 08/17/20 08/17/20 08/17/20 Range/Units 08:00 08:00 08:00 WBC (3.8-10.6) k/uL RBC (4.30-5.90) m/uL Hgb (13.0-17.5) gm/dL Hct (39.0-53.0) % MCV (80.0-100.0) fL MCH (25.0-35.0) pg MCHC (31.0-37.0) g/dL RDW (11.5-15.5) % Plt Count (150-450) k/uL MPV Neutrophils % % Lymphocytes % % Monocytes % % Eosinophils % % Basophils % % Neutrophils # (1.3-7.7) k/uL Lymphocytes # (1.0-4.8) k/uL Monocytes # (0-1.0) k/uL Eosinophils # (0-0.7) k/uL Basophils # (0-0.2) k/uL PT (9.0-12.0) sec INR (<1.2) APTT (22.0-30.0) sec Sodium (137-145) mmol/L Potassium (3.5-5.1) mmol/L Chloride (98-107) mmol/L Carbon Dioxide (22-30) mmol/L Anion Gap mmol/L BUN (9-20) mg/dL Creatinine (0.66-1.25) mg/dL Est GFR (CKD-EPI)AfAm (>60 ml/min/1.73 sqM) Est GFR (CKD-EPI)NonAf (>60 ml/min/1.73 sqM) Glucose (74-99) mg/dL Plasma Lactic Acid Jonah 1.1 (0.7-2.0) mmol/L Calcium (8.4-10.2) mg/dL Total Bilirubin (0.2-1.3) mg/dL AST (17-59) U/L ALT (4-49) U/L Alkaline Phosphatase (38-126) U/L Creatine Kinase (55-170) U/L Troponin I 0.035 H* (0.000-0.034) ng/mL NT-Pro-B Natriuret Pep 3460 pg/mL Total Protein (6.3-8.2) g/dL Albumin (3.5-5.0) g/dL TSH (0.465-4.680) mIU/L Urine Color Urine Appearance (Clear) Urine pH (5.0-8.0) Ur Specific [place] (1.001-1.035) Urine Protein (Negative) Urine Glucose (UA) (Negative) Urine Ketones (Negative) Urine Blood (Negative) Urine Nitrite (Negative) Urine Bilirubin (Negative) Urine Urobilinogen (<2.0) mg/dL Ur Leukocyte Esterase (Negative) Urine RBC (0-5) /hpf Urine WBC (0-5) /hpf Ur Squamous Epith Cells (0-4) /hpf Amorphous Sediment (None) /hpf Urine Bacteria (None) /hpf Hyaline Casts (0-2) /lpf Urine Mucus (None) /hpf Urine Yeast (Budding) (None) /hpf 12/08/20 Range/Units 09:10 WBC (3.8-10.6) k/uL RBC (4.30-5.90) m/uL Hgb (13.0-17.5) gm/dL Hct (39.0-53.0) % MCV (80.0-100.0) fL MCH (25.0-35.0) pg MCHC (31.0-37.0) g/dL RDW (11.5-15.5) % Plt Count (150-450) k/uL MPV Neutrophils % % Lymphocytes % % Monocytes % % Eosinophils % % Basophils % % Neutrophils # (1.3-7.7) k/uL Lymphocytes # (1.0-4.8) k/uL Monocytes # (0-1.0) k/uL Eosinophils # (0-0.7) k/uL Basophils # (0-0.2) k/uL PT (9.0-12.0) sec INR (<1.2) APTT (22.0-30.0) sec Sodium (137-145) mmol/L Potassium (3.5-5.1) mmol/L Chloride (98-107) mmol/L Carbon Dioxide (22-30) mmol/L Anion Gap mmol/L BUN (9-20) mg/dL Creatinine (0.66-1.25) mg/dL Est GFR (CKD-EPI)AfAm (>60 ml/min/1.73 sqM) Est GFR (CKD-EPI)NonAf (>60 ml/min/1.73 sqM) Glucose (74-99) mg/dL Plasma Lactic Acid Jonah (0.7-2.0) mmol/L Calcium (8.4-10.2) mg/dL Total Bilirubin (0.2-1.3) mg/dL AST (17-59) U/L ALT (4-49) U/L Alkaline Phosphatase (38-126) U/L Creatine Kinase (55-170) U/L Troponin I (0.000-0.034) ng/mL NT-Pro-B Natriuret Pep pg/mL Total Protein (6.3-8.2) g/dL Albumin (3.5-5.0) g/dL TSH (0.465-4.680) mIU/L Urine Color Yellow Urine Appearance Clear (Clear) Urine pH 5.5 (5.0-8.0) Ur Specific [place] 1.018 (1.001-1.035) Urine Protein Trace H (Negative) Urine Glucose (UA) Negative (Negative) Urine Ketones Negative (Negative) Urine Blood Negative (Negative) Urine Nitrite Negative (Negative) Urine Bilirubin Negative (Negative) Urine Urobilinogen <2.0 (<2.0) mg/dL Ur Leukocyte Esterase Small H (Negative) Urine RBC 6 H (0-5) /hpf Urine WBC 15 H (0-5) /hpf Ur Squamous Epith Cells <1 (0-4) /hpf Amorphous Sediment Rare H (None) /hpf Urine Bacteria Occasional H (None) /hpf Hyaline Casts 15 H (0-2) /lpf Urine Mucus Occasional H (None) /hpf Urine Yeast (Budding) Few H (None) /hpf - EKG Data EKG Comments: EKG demonstrates an AV paced rhythm. Rate of 65. QRS 166. QTC of 528. Significant baseline artifact. Pacemaker captures appropriately Disposition Clinical Impression: COVID-19 Disposition: HOME SELF-CARE Condition: Stable Instructions (If sedation given, give patient instructions): Viral Pneumonia (DC) Additional Instructions: You have been diagnosed with covid-19. Follow up with your doctor. Return to the ED for any new or worsening symptoms. Is patient prescribed a controlled substance at d/c from ED?: No Referrals: Petar Flores MD [Primary Care Provider] - 1-2 days Time of Disposition: 09:29
[2020-08-17 08:29] LABS: Albumin 4.1 g/dL (3.5-5.0); Potassium 4.8 mmol/L (3.5-5.1)
[2020-08-17 08:34] LABS: Partial Thromboplastin Time 25.9 sec (22.0-30.0); Prothrombin Time 10.5 sec (9.0-12.0)
[2020-08-17 08:37] LABS: Basophils % (A) 0 %; Eosinophils % (A) 1 %; HCT 43.7 % (39.0-53.0); HGB 14.6 gm/dL (13.0-17.5); Lymphocytes # (A) 0.6 k/uL (1.0-4.8); Lymphocytes % (A) 9 %; MCH 29.4 pg (25.0-35.0); MCHC 33.5 g/dL (31.0-37.0); MCV 87.8 fL (80.0-100.0); Mean Platelet Volume 7.7; Monocytes # (A) 0.2 k/uL (0-1.0); Monocytes % (A) 3 %; Neutrophils # (A) 5.7 k/uL (1.3-7.7); Neutrophils % (A) 86 %; Platelet Count 258 k/uL (150-450); RBC 4.98 m/uL (4.30-5.90); RDW 13.7 % (11.5-15.5); WBC 6.5 k/uL (3.8-10.6)
--- NOTE | 2020-08-17 09:02 | XR ---
EXAMINATION TYPE: XR chest 1V portable DATE OF EXAM: 08/17/2020 COMPARISON: Prior chest x-ray 06/29/2019 HISTORY: Altered mental status, abnormal chest x-ray TECHNIQUE: Single frontal view of the chest is obtained. FINDINGS: Patient is post median sternotomy and rotated. Heart remains enlarged. Generators present in left pectoral region, there are leads in the right atrium, ventricle, coronary sinus. No evident p neumothorax or pleural effusion. Prominent lung volumes may be indicative of underlying COPD. Aorta i s dense and possibly ectatic. Bandlike areas of increased attenuation may reflect scarring or atelect asis in the right midlung. IMPRESSION: Cardiomegaly. Postop and postprocedural changes. Probable atelectasis or scarring, under lying COPD. Rotated exam. Follow-up PA and lateral chest x-ray as indicated for better evaluation.
--- NOTE | 2020-08-17 09:02 | CT ---
EXAMINATION TYPE: CT brain wo con DATE OF EXAM: 08/17/2020 HISTORY: Altered mental status. Confusion. CT DLP: 1166 mGycm. Automated Exposure Control for Dose Reduction was Utilized. TECHNIQUE: CT scan of the head is performed without contrast. COMPARISON: CT brain January 15, 2017. FINDINGS: There is no acute intracranial hemorrhage or midline shift identified. There is diffuse v entricular and sulcal prominence consistent with diffuse age-related cerebral atrophy. There is low- attenuation in the periventricular white matter consistent with chronic small vessel ischemic change. Septum pellucidum vergae. The globes are intact and the visualized sinuses are clear. IMPRESSION: No acute intracranial hemorrhage or midline shift. There is moderate to borderline jessica re diffuse age-related cerebral atrophy and mild chronic small vessel ischemic change redemonstrated. No significant change from prior CT.
[2020-08-17 09:08] VITALS: BP 121/73; PULSE 60; RESP 16
[2020-08-17 09:09] LABS: Calcium 9.6 mg/dL (8.4-10.2); Total Bilirubin 1.3 mg/dL (0.2-1.3)
[2020-08-17 10:01] LABS: Amorphous Sediment,Urine Rare /hpf; Appearance,Urine Clear (Clear); Bacteria,Urine Occasional /hpf; Bilirubin,Urine Negative (Negative); Blood,Urine Negative (Negative); Budding Yeast,Urine Few /hpf; Color,Urine Yellow; Glucose,Urine (UA) Negative (Negative); Hyaline Casts,Urine 15 /lpf (0-2); Ketones,Urine Negative (Negative); Leukocyte Esterase,Urine Small (Negative); Mucus,Urine Occasional /hpf; Nitrite,Urine Negative (Negative); PH, Urine 5.5 (5.0-8.0); Protein,Urine Trace (Negative); RBC,Urine 6 /hpf (0-5); Specific Gravity,Urine 1.018 (1.001-1.035); Squamous Epithelial Cell,Urine <1 /hpf (0-4); Urobilinogen,Urine <2.0 mg/dL (<2.0); WBC,Urine 15 /hpf (0-5)
== END 2020-08-17 10:29 | disposition home or self-care (01) ==
LOC: EC 07:47
DX: U07.1 COVID-19 (principal); R79.89 Other specified abnormal findings of blood chemistry; I11.9 Hypertensive heart disease without heart failure; G31.1 Senile degeneration of brain, not elsewhere classified; R41.82 Altered mental status, unspecified; I48.91 Unspecified atrial fibrillation; E78.5 Hyperlipidemia, unspecified; I25.2 Old myocardial infarction; M19.90 Unspecified osteoarthritis, unspecified site; G89.29 Other chronic pain; M54.9 Dorsalgia, unspecified; Z79.01 Long term (current) use of anticoagulants; Z79.82 Long term (current) use of aspirin; Z79.899 Other long term (current) drug therapy; Z95.1 Presence of aortocoronary bypass graft; Z87.891 Personal history of nicotine dependence; Z95.0 Presence of cardiac pacemaker; Z98.890 Other specified postprocedural states
CPT/HCPCS: 36415; 70450; 71045; 80053; 81001; 82550; 83605; 83880; 84443; 84484; 85025; 85610; 85730; 87086; 93005; 99285

== ENCOUNTER 2021-05-09 14:20 | Emergency (ER) | payer MEDICARE ==
[2021-05-09 14:27] VITALS: BP 153/85; PULSE 69; RESP 16; TEMP 98.8
[2021-05-09 16:25] LABS: Appearance,Urine Clear (Clear); Bilirubin,Urine Negative (Negative); Blood,Urine Negative (Negative); Color,Urine Yellow; Glucose,Urine (UA) Negative (Negative); Ketones,Urine Negative (Negative); Leukocyte Esterase,Urine Moderate (Negative); Mucus,Urine Rare /hpf; Nitrite,Urine Negative (Negative); PH, Urine 6.5 (5.0-8.0); Protein,Urine Trace (Negative); RBC,Urine 1 /hpf (0-5); Specific Gravity,Urine 1.017 (1.001-1.035); Squamous Epithelial Cell,Urine <1 /hpf (0-4); Urobilinogen,Urine <2.0 mg/dL (<2.0); WBC,Urine 8 /hpf (0-5)
--- NOTE | 2021-05-09 16:34 | XR ---
EXAMINATION TYPE: XR Hip RT and AP Pelvis DATE OF EXAM: 05/09/2021 COMPARISON: NONE HISTORY: Pelvic and right-sided hip pain TECHNIQUE: A single AP view of the pelvis is obtained. Two views of the right hip are obtained. FINDINGS: There is no acute fracture/dislocation evident in the pelvis. Asymmetric narrowing and scl erosis right sacroiliac joint. The pubic symphysis intact. Moderate to severe axial joint space loss of both hips left greater than right. Scattered bilateral pelvic phleboliths. Two views of right hip show no acute fracture or dislocation. No focal lytic or sclerotic lesion see n in the proximal right femur. Right groin arterial vascular calcification. IMPRESSION: As above.
--- NOTE | 2021-05-09 17:25 | XR ---
EXAMINATION TYPE: XR KUB DATE OF EXAM: 05/09/2021 COMPARISON: NONE HISTORY: Lower abdominal pain TECHNIQUE: 4 views FINDINGS: There is no sign of intestinal obstruction or pneumoperitoneum. Fecal pattern is normal. Th ere is no evidence of a mass. There are no pathologic calcifications over the kidneys. There are clip s from cholecystectomy. There is mild linear density left lower lobe. There are sternal wires. Lung b ases appear clear of consolidation. IMPRESSION: Nonacute abdomen.
[2021-05-09] MEDS ORDERED: CEPHALEXIN 500 MG CAP PO STA (17:36)
--- NOTE | 2021-05-09 17:39 | ED ---
Abdominal Pain HPI - General Chief Complaint: Abdominal Pain Stated Complaint: Abdominal Pain Source: patient, EMS Mode of arrival: EMS Limitations: no limitations - History of Present Illness Initial Comments: 89-year-old male who presents to the emergency department with reported right hip and femur pain. Per the patient to was having some pain in his right leg after he almost sustained a fall. He states he twisted it wrong and was having some discomfort. According to the staff at his facility he is being transferred as he was reporting to some right lower quadrant abdominal pain. When questioning the patient's he is confused and states that he doesn't remember having abdominal pain and doesn't have any at this time. He denies any changes in his bowel or bladder habits. No fevers or chills. No chest pain or shortness of breath. States that he feels pain-free at this time. He denies any head injury with his falls. The remainder of the HPI is limited as the patient does have some age-related confusion. - Related Data Home Medications Medication Instructions Recorded Confirmed Finasteride [Proscar] 5 mg PO HS@209905/04/16 05/09/21 Metoprolol Succinate [Toprol XL] 25 mg PO HS@2100 06/27/19 05/09/21 Acetaminophen Tab [Tylenol] 650 mg PO Q4H PRN 08/17/20 05/09/21 Apixaban [Eliquis] 5 mg PO BID@0900,2100 08/17/20 05/09/21 Aspirin 81 mg PO DAILY@0900 08/17/20 05/09/21 Clotrimazole/Betamethasone Dip 1 applic TOPICAL BID 08/17/20 05/09/21 [Lotrisone Cream] Furosemide [Lasix] 20 mg PO BID@0600,1400 08/17/20 05/09/21 Lactose-Reduced Food [Ensure Plus] 1 can PO BID@0900,1700 08/17/20 05/09/21 Meclizine [Antivert] 12.5 mg PO BID PRN 08/17/20 05/09/21 Midodrine HCl [ProAmatine] 10 mg PO TID@0800,1200,1700 08/17/20 05/09/21 Natural Balance Tears 1 drop BOTH EYES BID@0900,2100 08/17/20 05/09/21 Polyethylene Glycol 3350 [Miralax] 17 gm PO DAILY@0900 08/17/20 05/09/21 Tamsulosin [Flomax] 0.4 mg PO Q48H 08/17/20 05/09/21 busPIRone HCl [Buspar] 5 mg PO TID@0900,1300,1800 08/17/20 05/09/21 traZODone HCL 75 mg PO HS@209908/17/20 05/09/21 Cyanocobalamin [Vitamin B-12] 500 mcg PO HS@209905/09/21 05/09/21 Magnesium Hydroxide [Milk of 2,400 mg PO DAILY PRN 05/09/21 05/09/21 Magnesia] Melatonin 6 mg PO HS@209905/09/21 05/09/21 Zgard 1 applic TOPICAL Q12H 05/09/21 05/09/21 Previous Rx's Medication Instructions Recorded Cephalexin [Keflex] 500 mg PO Q6HR 1 Days #12 cap 05/09/21 Allergies Allergy/AdvReac Type Severity Reaction Status Date / Time No Known Allergies Allergy Verified 05/09/21 14:38 Review of Systems ROS Statement: Those systems with pertinent positive or pertinent negative responses have been documented in the HPI. ROS Other: All systems not noted in ROS Statement are negative. Past Medical History Past Medical History: Atrial Fibrillation, CVA/TIA, Hyperlipidemia, Hypertension, Myocardial Infarction ([place]), Osteoarthritis (OA) Additional Past Medical History / Comment(s): chronic back pain, sciatica, vertigo, see Dr Newell H & P Last Myocardial Infarction Date:: 1999 History of Any Multi-Drug Resistant Organisms: None Reported Past Surgical History: Cholecystectomy, Coronary Bypass/CABG, Hernia Repair, Pacemaker Additional Past Surgical History / Comment(s): triple bypass 1989 Past Anesthesia/Blood Transfusion Reactions: Motion Sickness Type of Cardiac Device: Permanent Pacemaker Device Placement Date:: 2017 Past Psychological History: No Psychological Hx Reported Smoking Status: Former smoker Past Alcohol Use History: None Reported Past Drug Use History: None Reported - Past Family History Father Family Medical History: Cancer Additional Family Medical History / Comment(s): lymphoma Brother(s) Family Medical History: Cancer General Exam Limitations: no limitations Course Vital Signs 05/09/21 14:22 Temperature 98.8 F Pulse Rate 69 Respiratory 16 Rate Blood Pressure 153/85 O2 Sat by Pulse 97 Oximetry Medical Decision Making - Medical Decision Making Upon arrival patient was placed into room 4. I did review the patient's transfer packet. I did speak with the nurse who states the patient was transferred for right lower quadrant abdominal pain. Patient is pain-free at this time. He does provide a urine sample. Bladder scan was performed. He is sent over for a KUB an x-ray of his right femur as this is why he states he is being transported to the hospital. Review of the UA demonstrates few white blood cell clumps and moderate leukocyte Estrace. He is given a dose of Keflex and the specimen will be sent for culture. KUB demonstrates a nonacute abdomen. Hip and pelvis x-ray demonstrates no acute fracture dislocation however asymmetric narrowing and sclerosis the right sacroiliac joint. Moderate to severe axial joint space loss of both hips. Results are discussed the patient. He remains pain-free. He'll be placed on Keflex for 3 days until urine culture results. The patient has any new or worsening symptoms he should be sent to the emergency department. Patient agreed to the treatment plan he was discharged in stable condition. Patient sent via EMS back to [facility] - Lab Data Lab Results 05/09/21 Range/Units 16:12 Urine Color Yellow Urine Appearance Clear (Clear) Urine pH 6.5 (5.0-8.0) Ur Specific [place] 1.017 (1.001-1.035) Urine Protein Trace H (Negative) Urine Glucose (UA) Negative (Negative) Urine Ketones Negative (Negative) Urine Blood Negative (Negative) Urine Nitrite Negative (Negative) Urine Bilirubin Negative (Negative) Urine Urobilinogen <2.0 (<2.0) mg/dL Ur Leukocyte Esterase Moderate H (Negative) Urine RBC 1 (0-5) /hpf Urine WBC 8 H (0-5) /hpf Urine WBC Clumps Few H (None) /hpf Ur Squamous Epith Cells <1 (0-4) /hpf Urine Mucus Rare H (None) /hpf Disposition Clinical Impression: Abnormal urinalysis, Right hip pain Disposition: HOME SELF-CARE Condition: Stable Instructions (If sedation given, give patient instructions): Leg Pain (ED) Additional Instructions: Please follow up with your doctor in 2-4 days. Return to the ED for any new or worsening symptoms Prescriptions: Cephalexin [Keflex] 500 mg PO Q6HR 1 Days #12 cap Is patient prescribed a controlled substance at d/c from ED?: No Referrals: Olivia Stroud MD [Primary Care Provider] - 1-2 days Time of Disposition: 17:38
== END 2021-05-09 19:59 | disposition home or self-care (01) ==
LOC: EC 14:20
DX: M25.551 Pain in right hip (principal); R82.90 Unspecified abnormal findings in urine; I48.91 Unspecified atrial fibrillation; E78.5 Hyperlipidemia, unspecified; I10 Essential (primary) hypertension; I25.2 Old myocardial infarction; M19.90 Unspecified osteoarthritis, unspecified site; Z79.82 Long term (current) use of aspirin; Z79.01 Long term (current) use of anticoagulants; Z90.49 Acquired absence of other specified parts of digestive tract; Z95.1 Presence of aortocoronary bypass graft; Z87.891 Personal history of nicotine dependence; Z86.73 Personal history of transient ischemic attack (TIA), and cerebral infarction without residual deficits
CPT/HCPCS: 51798; 73502; 74018; 81001; 99284

== ENCOUNTER 2022-09-06 18:10 | Inpatient (IN) | payer MEDICARE ==
[2022-09-06] MEDS ORDERED: ALBUTEROL NEBULIZED 2.5 MG/3 ML INHALATION STA (18:40)
--- NOTE | 2022-09-06 18:40 | ED ---
SOB HPI - General Chief Complaint: Shortness of Breath Stated Complaint: sob Time Seen by Provider: 09/06/22 18:16 Source: patient, EMS, RN notes reviewed, old records reviewed Mode of arrival: EMS Limitations: altered mental status - History of Present Illness Initial Comments: Patient is an 89-year-old male presenting to the emergency room via EMS from [facility] in the [place] where he has a resident with concerns regarding worsening shortness of breath and congestion ongoing for 4 days with requirement of supplemental oxygen today. Patient unfortunately has baseline of dementia and is a poor historian and he is unsure where he currently is or the current time. He denies any complaints or concerns. Reports from [facility] on the [place] sent with patient reviewed documenting the increase in shortness of breath and need for supplemental oxygenation. Patient Covid in June of this year and has had recent CHF and COPD exacerbations. No fevers were documented from [facility]. In addition to his dementia, COPD, CHF and COVID history he is a past medical history significant for A. fib, hypertension, hyperlipidemia, NC, CVA, chronic back pain with sciatica, and osteoarthritis. - Related Data Home Medications Medication Instructions Recorded Confirmed Metoprolol Succinate [Toprol XL] 25 mg PO HS 06/27/19 09/06/22 Acetaminophen Tab [Tylenol] 650 mg PO DAILY 08/17/20 09/06/22 Aspirin 81 mg PO DAILY 08/17/20 09/06/22 Lactose-Reduced Food [Ensure Plus] 237 ml PO BID@0900,1700 08/17/20 09/06/22 Midodrine HCl [ProAmatine] 10 mg PO TID@0800,1200,1700 08/17/20 09/06/22 Natural Balance Tears 1 drop BOTH EYES BID 08/17/20 09/06/22 Tamsulosin [Flomax] 0.4 mg PO Q48H 08/17/20 09/06/22 busPIRone HCl [Buspar] 5 mg PO TID@0900,1300,1800 08/17/20 09/06/22 polyethylene glycoL 3350 [Miralax] 17 gm PO DAILY 08/17/20 09/06/22 Cyanocobalamin [Vitamin B-12] 500 mcg PO HS 05/09/21 09/06/22 Melatonin 6 mg PO HS 05/09/21 09/06/22 Acetaminophen Tab [Tylenol] 650 mg PO Q4H PRN 09/06/22 09/06/22 Furosemide [Lasix] 40 mg PO BID@0600,1400 09/06/22 09/06/22 Loperamide HCl [Imodium A-D] 2 - 4 mg PO QID PRN MDD 8mg 09/06/22 09/06/22 traZODone HCL [Desyrel] 100 mg PO HS 09/06/22 09/06/22 Allergies Allergy/AdvReac Type Severity Reaction Status Date / Time No Known Allergies Allergy Verified 09/06/22 21:50 Review of Systems ROS Statement: Those systems with pertinent positive or pertinent negative responses have been documented in the HPI. ROS Other: All systems not noted in ROS Statement are negative. Past Medical History Past Medical History: Atrial Fibrillation, Heart Failure, COPD, CVA/TIA, Dementia, Hyperlipidemia, Hypertension, Myocardial Infarction ([place]), Osteoarthritis (OA) Additional Past Medical History / Comment(s): chronic back pain, sciatica, vertigo, see Dr Newell H & P Last Myocardial Infarction Date:: 1999 History of Any Multi-Drug Resistant Organisms: None Reported Past Surgical History: Cholecystectomy, Coronary Bypass/CABG, Hernia Repair, Pacemaker Additional Past Surgical History / Comment(s): triple bypass 1989 Past Anesthesia/Blood Transfusion Reactions: Motion Sickness Type of Cardiac Device: Permanent Pacemaker Device Placement Date:: 2017 Past Psychological History: No Psychological Hx Reported Smoking Status: Former smoker Past Alcohol Use History: None Reported Past Drug Use History: None Reported - Past Family History Father Family Medical History: Cancer Additional Family Medical History / Comment(s): lymphoma Brother(s) Family Medical History: Cancer General Exam - General Exam Comments Initial Comments: GENERAL: No acute distress, well developed, well nourished. HEENT: Normocephalic, atraumatic. Pupils equal, round, reactive to light. Moist mucous membranes. LUNGS: Inspiratory and expiratory wheeze bilateral upper and lower upper extremities, coarse rales upper, diminished bibasilar area. Occasional loose nonproductive cough. No use of accessory muscles. HEART: Regular rate and rhythm, systolic murmur no gallop or rub. ABDOMEN: Normal bowel sounds. Soft, non-tender, non-distended. DERMATOLOGIC: Skin intact, without rashes or lesions noted. EXTREMITIES: Bilateral lower extremity edema +1 Moves all extremities. NEUROLOGIC: Alert & oriented x1. Poor historian. PSYCHIATRIC: Normal affect and behavior. Limitations: altered mental status Course Vital Signs 09/06/22 09/06/22 09/06/22 18:11 18:23 19:16 Temperature 99.2 F Pulse Rate 61 60 Respiratory 24 26 H 18 Rate Blood Pressure 116/66 121/68 O2 Sat by Pulse 92 L 96 Oximetry 09/06/22 09/06/22 09/06/22 19:20 19:28 21:25 Temperature Pulse Rate 60 61 71 Respiratory 18 Rate Blood Pressure 121/70 O2 Sat by Pulse 96 Oximetry Medical Decision Making - Medical Decision Making Was pt. sent in by a medical professional or institution? @ jail, [facility]. Did you speak to anyone other than the patient for history? @ EMS and records from [facility]. Did you review nursing and triage notes? @ Yes reviewed; symptoms consistent with nursing and triage note. Were old charts reviewed? @ -[facility] records and most recent discharge from hospital. Differential Diagnosis? @-Differential Dyspnea: Coronary syndrome, arrhythmia, tamponade, asthma, COPD, pulmonary embolism, pneumonia, pneumothorax, pulmonary effusion, anaphylaxis, diabetic ketoacidosis, flailed chest, pulmonary contusion, diaphragmatic rupture, anemia, neuromuscular, this is not meant to be an all-inclusive list. EKG interpreted by me (3pts min.)? @ -Ventricularly paced, ventricular rate 60 bpm, LA interval * ms, QRS duration 164 ms, QT/QTC 144/460 ms, PRT axes *, 248, 39 X-rays interpreted by me (1pt min.)? @ -Chest x-ray two-view demonstrates pulmonary vascular congestion. No infiltrate. CT interpreted by me (1pt min.)? @ - CT chest and GL to rule out PE negative for pulmonary emboli. Redemonstration of pulmonary vascular congestion. Radiologist report also reviewed. U/S interpreted by me (1pt. min.)? @ -None What testing was considered but not performed? (CT, X-rays, U/S, labs)? Why? @None What meds were considered but not given? Why? @ -Anticoagulation for elevated troponin and d-dimer. Not given secondary to EKG without acute changes and CT of the chest angiogram without evidence of pulmonary emboli and previous discontinuation of anticoagulation due to comorbid conditions and poor candidacy for anticoagulation. Did you discuss the management of the patient with other professionals? @ - No Did you reconcile home meds? @ - Medications from [facility] on the [place] reviewed confirming no current anticoagulation. Was smoking cessation discussed for >3mins.? @ -Not applicable Was critical care preformed (if so, how long)? @ - No Were there social determinants of health that impacted care today? How? (Homelessness, low income, unemployed, alcoholism, drug addiction, transportation, low edu. Level, literacy, decrease access to med. care, long term, rehab)? @ -No Was there de-escalation of care discussed even if they declined? (Discuss DNR or withdrawal of care, Hospice)? @ -No, patient DO NOT RESUSCITATE. What co-morbidities impacted this encounter? (DM, HTN, Smoking, COPD, CAD, Cancer, CVA, Hep., AIDS, mental health diagnosis, sleep apnea, morbid obesity)? @ - CHF, dementia, recent Covid. Was patient admitted / discharged? @ - 89-year-old presenting to the emergency room from his care home facility with concerns regarding worsening shortness of breath and need for supplemental oxygenation. Patient with a history of CHF and COVID. He is also previously had pneumonia. Wheeze on exam will give albuterol nebulized. Will begin workup for shortness of breath with EKG, chest x-ray, CBC, CMP, troponin, magnesium, proBNP, d-dimer, coags and blood cultures. Will also obtain separate swab. D-dimer elevated 5.45 due to elevation will obtain CT of the chest to rule out PE however more likely elevated secondary to recent Covid infection. Troponin elevated 0.194 without EKG changes. EKG demonstrates ventricular paced rhythm. BUN slightly elevated at 41 creatinine stable at 1.22. Electrolytes overall stable. No leukocytosis. Mild chronic anemia noted. Lactic acid normal. Magnesium normal. CT of the chest as indicated above negative for pulmonary emboli, chest x-ray and CT of the chest wall consistent with CHF exacerbation along with proBNP elevation at 8695. Will gentle diuresis in the setting of slightly elevated BUN. Patient will need admission for acute CHF exacerbation. Will defer further diagnostic imaging and laboratory studies along with other medications to admission team. Spoke with Chiara with [facility] covering for Dr. Lr who is accepting of admission for CHF exacerbation no further orders received at this time. Will place admission orders. Undiagnosed new problem with uncertain prognosis? @ -[none] Drug Therapy requiring intensive monitoring for toxicity (Heparin, Nitro, Insulin, Cardizem)? @ -No Were any procedures done? @ -No Diagnosis/symptom? @ -Acute exacerbation of congestive heart failure Acute, or Chronic, or Acute on Chronic? @ -Acute on chronic Uncomplicated (without systemic symptoms) or Complicated (systemic symptoms)? @ -Complicated Side effects of treatment? @ -None Exacerbation, Progression, or Severe Exacerbation] @ -Severe exacerbation Poses a threat to life or bodily function? @ -yes Case discussed with Dr. Aaron. - Lab Data Result diagrams: 09/06/22 19:09 09/06/22 19:09 Lab Results 09/06/22 09/06/22 09/06/22 Range/Units 19:09 19:09 19:09 WBC 7.3 (3.8-10.6) k/uL RBC 4.23 L (4.30-5.90) m/uL Hgb 12.7 L (13.0-17.5) gm/dL Hct 38.0 L (39.0-53.0) % MCV 90.0 (80.0-100.0) fL MCH 29.9 (25.0-35.0) pg MCHC 33.3 (31.0-37.0) g/dL RDW 14.0 (11.5-15.5) % Plt Count 164 (150-450) k/uL MPV 8.9 Neutrophils % 84 % Lymphocytes % 7 % Monocytes % 6 % Eosinophils % 1 % Basophils % 0 % Neutrophils # 6.2 (1.3-7.7) k/uL Lymphocytes # 0.5 L (1.0-4.8) k/uL Monocytes # 0.4 (0-1.0) k/uL Eosinophils # 0.1 (0-0.7) k/uL Basophils # 0.0 (0-0.2) k/uL PT 11.5 (9.0-12.0) sec INR 1.1 (<1.2) APTT 22.2 (22.0-30.0) sec D-Dimer 5.45 H (<0.60) mg/L FEU Sodium 139 (137-145) mmol/L Potassium 4.6 (3.5-5.1) mmol/L Chloride 102 (98-107) mmol/L Carbon Dioxide 29 (22-30) mmol/L Anion Gap 8 mmol/L BUN 41 H (9-20) mg/dL Creatinine 1.22 (0.66-1.25) mg/dL Est GFR (CKD-EPI)AfAm 61 (>60 ml/min/1.73 sqM) Est GFR (CKD-EPI)NonAf 52 (>60 ml/min/1.73 sqM) Glucose 107 H (74-99) mg/dL Plasma Lactic Acid Jonah (0.7-2.0) mmol/L Calcium 9.1 (8.4-10.2) mg/dL Magnesium 2.5 H (1.6-2.3) mg/dL Total Bilirubin 2.1 H (0.2-1.3) mg/dL AST 72 H (17-59) U/L ALT 40 (4-49) U/L Alkaline Phosphatase 96 (38-126) U/L Troponin I (0.000-0.034) ng/mL NT-Pro-B Natriuret Pep pg/mL Total Protein 6.5 (6.3-8.2) g/dL Albumin 4.0 (3.5-5.0) g/dL 09/06/22 09/06/22 09/06/22 Range/Units 19:09 19:09 19:09 WBC (3.8-10.6) k/uL RBC (4.30-5.90) m/uL Hgb (13.0-17.5) gm/dL Hct (39.0-53.0) % MCV (80.0-100.0) fL MCH (25.0-35.0) pg MCHC (31.0-37.0) g/dL RDW (11.5-15.5) % Plt Count (150-450) k/uL MPV Neutrophils % % Lymphocytes % % Monocytes % % Eosinophils % % Basophils % % Neutrophils # (1.3-7.7) k/uL Lymphocytes # (1.0-4.8) k/uL Monocytes # (0-1.0) k/uL Eosinophils # (0-0.7) k/uL Basophils # (0-0.2) k/uL PT (9.0-12.0) sec INR (<1.2) APTT (22.0-30.0) sec D-Dimer (<0.60) mg/L FEU Sodium (137-145) mmol/L Potassium (3.5-5.1) mmol/L Chloride (98-107) mmol/L Carbon Dioxide (22-30) mmol/L Anion Gap mmol/L BUN (9-20) mg/dL Creatinine (0.66-1.25) mg/dL Est GFR (CKD-EPI)AfAm (>60 ml/min/1.73 sqM) Est GFR (CKD-EPI)NonAf (>60 ml/min/1.73 sqM) Glucose (74-99) mg/dL Plasma Lactic Acid Jonah 1.2 (0.7-2.0) mmol/L Calcium (8.4-10.2) mg/dL Magnesium (1.6-2.3) mg/dL Total Bilirubin (0.2-1.3) mg/dL AST (17-59) U/L ALT (4-49) U/L Alkaline Phosphatase (38-126) U/L Troponin I 0.194 H* (0.000-0.034) ng/mL NT-Pro-B Natriuret Pep 8980 pg/mL Total Protein (6.3-8.2) g/dL Albumin (3.5-5.0) g/dL - Radiology Data Radiology results: report reviewed, image reviewed Disposition Clinical Impression: Acute exacerbation of congestive heart failure Disposition: ADMITTED IP TO THIS [facility] Condition: Stable Is patient prescribed a controlled substance at d/c from ED?: No Time of Disposition: 21:38
[2022-09-06 19:24] LABS: Basophils % (A) 0 %; Eosinophils # (A) 0.1 k/uL (0-0.7); Eosinophils % (A) 1 %; HGB 12.7 gm/dL (13.0-17.5); Lymphocytes # (A) 0.5 k/uL (1.0-4.8); Lymphocytes % (A) 7 %; MCH 29.9 pg (25.0-35.0); MCHC 33.3 g/dL (31.0-37.0); Mean Platelet Volume 8.9; Monocytes # (A) 0.4 k/uL (0-1.0); Monocytes % (A) 6 %; Neutrophils # (A) 6.2 k/uL (1.3-7.7); Neutrophils % (A) 84 %; Platelet Count 164 k/uL (150-450); RBC 4.23 m/uL (4.30-5.90); WBC 7.3 k/uL (3.8-10.6)
[2022-09-06 19:37] LABS: Calcium 9.1 mg/dL (8.4-10.2); Magnesium 2.5 mg/dL (1.6-2.3); Potassium 4.6 mmol/L (3.5-5.1); Total Bilirubin 2.1 mg/dL (0.2-1.3); Total Protein 6.5 g/dL (6.3-8.2)
[2022-09-06 19:48] LABS: INR 1.1 (<1.2); Partial Thromboplastin Time 22.2 sec (22.0-30.0); Prothrombin Time 11.5 sec (9.0-12.0)
--- NOTE | 2022-09-06 20:09 | XR ---
EXAMINATION TYPE: XR chest 2V DATE OF EXAM: 09/06/2022 7:52 PM COMPARISON: Chest radiographs from TECHNIQUE: XR chest 2V Frontal and lateral views of the chest. CLINICAL INDICATION:Male, 89 years old with history of difficulty breathing; FINDINGS: Lungs/Pleura: There is no evidence of pleural effusion, focal consolidation, or pneumothorax. Pulmonary vascularity: Pulmonary vascular congestion. Heart/mediastinum: Cardiomediastinal silhouette is enlarged and stable. Three lead cardiac conduction device overlying the left hemithorax with lead tips projecting over the right ventricle, right atriu m and coronary sinus. Musculoskeletal: No acute osseous pathology. Midline sternotomy wires are noted. IMPRESSION: Cardiomegaly and mild pulmonary vascular congestion. Correlate with BNP for congestive heart failure.
[2022-09-06] MEDS ORDERED: FUROSEMIDE 10 MG/ML 2 ML VIAL IV ONE (20:59)
--- NOTE | 2022-09-06 21:17 | CT ---
EXAMINATION TYPE: CT chest angio for PE CT DLP: 744.8 mGycm, Automated exposure control for dose reduction was used. DATE OF EXAM: 09/06/2022 9:06 PM COMPARISON: Chest radiograph from same day. CT of the chest with most recent on 02/13/2017 CLINICAL INDICATION:Male, 89 years old with history of elevated d-dimer and shortness of breath; ELEV ATED D-DIMER AND CHITO. TECHNIQUE/CONTRAST: CTA scan of the thorax is performed with IV Contrast, patient injected with 80 mL of Isovue 370, pulm onary embolism protocol. MIP images are created and reviewed. FINDINGS: Pulmonary Artery: There is no evidence for a central filling defect within the pulmonary vasculature to suggest acute pulmonary embolism. Limited evaluation of the segmental and subsegmental branches se condary to bolus timing. The pulmonary artery is enlarged measuring up to 4.3 cm. Lungs/Pleura: Priors thickening of the intralobular septa. No evidence of pleural effusion or pneumot horax. Airway: Large airways are patent. Heart: Heart is enlarged for size. There is coronary artery atherosclerosis. Post CABG changes are pr esent. Vasculature: No evidence of aortic aneurysm. Ascending thoracic aorta dilation up to 4.3 cm. Mediastinum: No gross evidence of adenopathy. Musculoskeletal: No acute osseous abnormalities, multilevel disc degeneration changes of the spine wi th osteophyte formation disc space narrowing present. Sternotomy wires are present. Soft Tissues: Cardiac conduction device in the left chest wall. Lower neck: No significant findings. Upper Abdomen: Gallbladder is surgically absent. IMPRESSION: 1. No evidence of central pulmonary embolism. Limited evaluation of the segmental and subsegmental br anches secondary to bolus timing and motion. 2. Ascending thoracic aorta ectasia up to 4.3 cm. 3. Cardiomegaly, pulmonary hypertension and pulmonary vascular congestion, correlate with serum BNP c ongestive heart failure.
[2022-09-06] MEDS ORDERED: NALOXONE 0.4 MG/ML 1 ML VIAL IV PRN (21:36)
[2022-09-07] MEDS: traZODone HCL 100 MG TAB PO SCH ×2 (00:36→20:30)
[2022-09-07] MEDS ORDERED: OSELTAMIVIR 75 MG CAP PO SCH (00:45)
[2022-09-07] MEDS ORDERED: ACETAMINOPHEN TAB 325 MG TAB PO PRN (06:35)
[2022-09-07] MEDS ORDERED: LOPERAMIDE 2 MG CAP PO PRN (06:35)
[2022-09-07] MEDS ORDERED: IPRATROPIUM-ALBUTEROL 3 ML NEB INHALATION STA (06:36)
[2022-09-07 08:29] LABS: Basophils % (A) 0 %; Eosinophils % (A) 1 %; HCT 36.3 % (39.0-53.0); HGB 11.8 gm/dL (13.0-17.5); Hypochromasia Slight; Lymphocytes # (A) 0.5 k/uL (1.0-4.8); Lymphocytes % (A) 9 %; MCH 29.6 pg (25.0-35.0); MCHC 32.4 g/dL (31.0-37.0); MCV 91.4 fL (80.0-100.0); Mean Platelet Volume 9.2; Monocytes # (A) 0.3 k/uL (0-1.0); Monocytes % (A) 6 %; Neutrophils # (A) 4.5 k/uL (1.3-7.7); Neutrophils % (A) 83 %; Platelet Count 142 k/uL (150-450); RBC 3.98 m/uL (4.30-5.90); RDW 13.8 % (11.5-15.5); WBC 5.5 k/uL (3.8-10.6)
[2022-09-07 08:54] LABS: Albumin 3.6 g/dL (3.5-5.0); Bilirubin,Unconjugated 1.1 mg/dL (0.0-1.1); Calcium 8.7 mg/dL (8.4-10.2); Potassium 4.3 mmol/L (3.5-5.1); Total Protein 5.9 g/dL (6.3-8.2)
[2022-09-07 08:56] LABS: Bilirubin, Delta 0.7 mg/dL (0.0-0.2); Total Bilirubin 1.8 mg/dL (0.2-1.3)
[2022-09-07] MEDS ORDERED: NON FORMULARY DRUG (Lactose-Reduced Food [Ensure Plus] 237 ML Liquid) PO SCH (09:00)
[2022-09-07] MEDS: ASPIRIN 81 MG PO SCH (09:13)
[2022-09-07] MEDS: TAMSULOSIN 0.4 MG CAP.ER.24H PO SCH (09:13)
[2022-09-07] MEDS: busPIRone HCl 5 MG TAB PO SCH ×3 (09:13→19:40)
[2022-09-07] MEDS: FUROSEMIDE 10 MG/ML 2 ML VIAL IV SCH ×2 (09:14→20:30)
[2022-09-07] MEDS: ARTIFICIAL TEARS-HYPROMELLOSE DROPS 15 ML BTL BOTH EYES SCH ×2 (09:17→20:31)
--- NOTE | 2022-09-07 10:47 | P.HPIM ---
History of Present Illness This is a pleasant 89 his old male with multiple medical problems as below including CHF and atrial fibrillation not on anticoagulation. Presents because of worsening dyspnea. Patient is poor historian given his history of dementia as per at bedside. Muscle information obtained from staff, records and at bedside. patient is at [facility] has been having chest congestion since last Sunday, as per his inflow is a test came back negative then at [facility]. Because of nonimprovement patient was sent to emergency room . Patient denies chest pain. No abdominal pain or vomiting or diarrhea. Patient denies diarrhea or abdominal pain or vomiting, no urinary complaints. No new weakness or numbness however patient looks generally weak. Patient is a febrile and the rest of vitals are stable and he is saturating 97% on 2 L oxygen CBC showed mild anemia with 12.7. D-dimer elevated 5.4. Creatinine 1.2 Rest of BMP and electrolytes are unremarkable. Bilirubin is slightly elevated 2.1, AST slightly elevated at 72 but normal ALT at 40. Troponin elevated 0.19. ProBNP is elevated 8980. Influenza A is detected Rest of our pharmacists including RSV, influenza B and sanchez are not detected CTA of the chest: No pulmonary embolism. Cardiomegaly, pulmonary hypertension and pulmonary vascular congestion, correlate with serum BNP congestive heart failure EKG showing ventricular paced rhythm Chest x-ray showing also possible CHF Review of Systems Review of systems CONSTITUTIONAL: No fever, no malaise, no fatigue. HEENT: No recent visual problems or hearing problems. Denied any sore throat. CARDIOVASCULAR: No orthopnea, PND, no palpitations, no syncope. PULMONARY: No chest wall tenderness, no hemoptysis. GASTROINTESTINAL: No diarrhea, no nausea, no vomiting, no abdominal pain. Normoactive bowel sounds. NEUROLOGICAL: No headaches, no weakness, no numbness. HEMATOLOGICAL: Denies any bleeding or petechiae. GENITOURINARY: Denies any burning micturition, frequency, or urgency. MUSCULOSKELETAL/RHEUMATOLOGICAL: Denies any joint pain, swelling, or any muscle pain. ENDOCRINE: Denies any polyuria or polydipsia. Past Medical History Past Medical History: Atrial Fibrillation, Heart Failure, COPD, CVA/TIA, Dementia, Hyperlipidemia, Hypertension, Myocardial Infarction ([place]), Osteoarthritis (OA) Additional Past Medical History / Comment(s): chronic back pain, sciatica, vertigo, see Dr Newell H & P Last Myocardial Infarction Date:: 1999 History of Any Multi-Drug Resistant Organisms: None Reported Past Surgical History: Cholecystectomy, Coronary Bypass/CABG, Hernia Repair, Pacemaker Additional Past Surgical History / Comment(s): triple bypass 1989 Past Anesthesia/Blood Transfusion Reactions: Motion Sickness Type of Cardiac Device: Permanent Pacemaker Device Placement Date:: 2017 Past Psychological History: No Psychological Hx Reported Smoking Status: Former smoker Past Alcohol Use History: None Reported Past Drug Use History: None Reported - Past Family History Father Family Medical History: Cancer Additional Family Medical History / Comment(s): lymphoma Brother(s) Family Medical History: Cancer Medications and Allergies Home Medications Medication Instructions Recorded Confirmed Type Metoprolol Succinate [Toprol XL] 25 mg PO HS 06/27/19 09/06/22 History Acetaminophen Tab [Tylenol] 650 mg PO DAILY 08/17/20 09/06/22 History Aspirin 81 mg PO DAILY 08/17/20 09/06/22 History Lactose-Reduced Food [Ensure Plus] 237 ml PO BID@0900,1700 08/17/20 09/06/22 History Midodrine HCl [ProAmatine] 10 mg PO TID@0800,1200,1700 08/17/20 09/06/22 History Natural Balance Tears 1 drop BOTH EYES BID 08/17/20 09/06/22 History Tamsulosin [Flomax] 0.4 mg PO Q48H 08/17/20 09/06/22 History busPIRone HCl [Buspar] 5 mg PO TID@0900,1300,1800 08/17/20 09/06/22 History polyethylene glycoL 3350 [Miralax] 17 gm PO DAILY 08/17/20 09/06/22 History Cyanocobalamin [Vitamin B-12] 500 mcg PO HS 05/09/21 09/06/22 History Melatonin 6 mg PO HS 05/09/21 09/06/22 History Acetaminophen Tab [Tylenol] 650 mg PO Q4H PRN 09/06/22 09/06/22 History Furosemide [Lasix] 40 mg PO BID@0600,1400 09/06/22 09/06/22 History Loperamide HCl [Imodium A-D] 2 - 4 mg PO QID PRN MDD 8mg 09/06/22 09/06/22 History traZODone HCL [Desyrel] 100 mg PO HS 09/06/22 09/06/22 History Allergies Allergy/AdvReac Type Severity Reaction Status Date / Time No Known Allergies Allergy Verified 09/06/22 21:50 Physical Exam Vitals: Vital Signs Temp Pulse Resp BP Pulse Ox 09/07/22 00:11 99.1 F 60 18 105/79 97 09/06/22 21:25 71 18 121/70 96 09/06/22 19:28 61 09/06/22 19:20 60 09/06/22 19:16 60 18 121/68 96 09/06/22 18:23 26 H 09/06/22 18:11 99.2 F 61 24 116/66 92 L Intake and Output 09/06/22 09/06/22 09/07/22 14:59 22:59 06:59 Other: Weight 74.843 kg -GENERAL: The patient is alert and oriented x1, confused at baseline, looks tired, answers a few questions, not in any acute distress. Well developed, well nourished. HEENT: Pupils are round and equally reacting to light. EOMI. No scleral icterus. No conjunctival pallor. Normocephalic, atraumatic. No pharyngeal erythema. No thyromegaly. CARDIOVASCULAR: S1 and S2 present. No murmurs, rubs, or gallops. -PULMONARY: Chest is clear to auscultation, no wheezing or crackles. Mildly tachypneic ABDOMEN: Soft, nontender, nondistended, normoactive bowel sounds. No palpable organomegaly. MUSCULOSKELETAL: No joint swelling or deformity. -EXTREMITIES: No cyanosis, clubbing, . Mild bilateral pitting leg edema NEUROLOGICAL: Gross neurological examination did not reveal any focal deficits. SKIN: No rashes. no petechiae. Results CBC & Chem 7: 09/07/22 07:37 09/07/22 07:37 Labs: Abnormal Lab Results - Last 24 Hours (Table) 09/06/22 09/06/22 09/06/22 Range/Units 19:09 19:09 19:09 RBC 4.23 L (4.30-5.90) m/uL Hgb 12.7 L (13.0-17.5) gm/dL Hct 38.0 L (39.0-53.0) % Lymphocytes # 0.5 L (1.0-4.8) k/uL D-Dimer 5.45 H (<0.60) mg/L FEU BUN 41 H (9-20) mg/dL Glucose 107 H (74-99) mg/dL Magnesium 2.5 H (1.6-2.3) mg/dL Total Bilirubin 2.1 H (0.2-1.3) mg/dL AST 72 H (17-59) U/L Troponin I (0.000-0.034) ng/mL Influenza Type A (PCR) (Not Detectd) 09/06/22 09/06/22 Range/Units 19:09 21:50 RBC (4.30-5.90) m/uL Hgb (13.0-17.5) gm/dL Hct (39.0-53.0) % Lymphocytes # (1.0-4.8) k/uL D-Dimer (<0.60) mg/L FEU BUN (9-20) mg/dL Glucose (74-99) mg/dL Magnesium (1.6-2.3) mg/dL Total Bilirubin (0.2-1.3) mg/dL AST (17-59) U/L Troponin I 0.194 H* (0.000-0.034) ng/mL Influenza Type A (PCR) Detected A (Not Detectd) Assessment and Plan Assessment: Influenza A infection, less likely pneumonia Acute and chronic CHF exacerbation Elevated troponin mildly elevated liver enzymes Chronic atrial fibrillation, not on anticoagulation History of CVA/TIA Hypertension Hyperlipidemia History of osteoarthritis History of chronic back pain with sciatic History of vertigo History of coronary artery disease status post bypass/CABG History of sick sinus syndrome status post permanent pacemaker Plan: Start Tamiflu Continue with IV Lasix Monitoring urine inputt and output and creatinine with electrolytes Cardiology consult Infectious incision consult Labs and medication were reviewed.. Continue same treatment. Continue with symptomatic treatment. Resume home medication. Monitor lytes and vitals. DVT and GI prophylaxis. Further recommendations as per clinical course of the patient DVT prophylaxis: Subcutaneous heparin GI Prophylaxis: Pepcid From [facility] No code, confirmed with at bedside Prognosis is guarded
[2022-09-07] MEDS: OSELTAMIVIR 60 MG/10 ML ORAL SYRINGE PO SCH (13:00)
--- NOTE | 2022-09-07 13:05 | US ---
EXAMINATION TYPE: US venous doppler duplex LE BI DATE OF EXAM: 09/07/2022 10:48 AM COMPARISON: 06/27/2019 CLINICAL HISTORY: leg swelling. edema SIDE PERFORMED: Bilateral TECHNIQUE: The lower extremity deep venous system is examined utilizing real time linear array sonog panchito with graded compression, doppler sonography and color-flow sonography. VESSELS IMAGED: Common Femoral Vein Deep Femoral Vein Greater Saphenous Vein * Femoral Vein Popliteal Vein Small Saphenous Vein * Proximal Calf Veins (* superficial vessels) Right Leg: Negative for DVT Left Leg: Negative for DVT IMPRESSION: 1. Bilateral lower extremity ultrasound negative for deep venous thrombosis
[2022-09-07] MEDS: IPRATROPIUM-ALBUTEROL 3 ML NEB INHALATION PRN ×2 (15:53→19:14)
[2022-09-07] MEDS: HEPARIN SODIUM,PORCINE/PF 5,000 UNIT/0.5 ML SYRINGE SQ SCH (20:29)
[2022-09-07] MEDS: FAMOTIDINE 20 MG/2 ML VIAL IV SCH (20:30)
[2022-09-07] MEDS: CYANOCOBALAMIN 500 MCG TAB PO SCH (20:30)
--- NOTE | 2022-09-07 21:15 | P.CONS ---
History of Present Illness - Reason for Consult Consult date: 09/07/22 influenza Requesting physician: Bar E Reynaldo - Chief Complaint Weakness and congested cough x few days - History of Present Illness Patient is a 89-year-old male with a past medical history significant for COPD CHF hypertension hyperlipidemia CVA who is a resident of local shelter got his flu vaccine about 5 days ago patient has been sent to the ER from a shelter for evaluation of worsening shortness of breath chest congestion symptom apparently has been going on for 4 days before presentation to the hospital patient apparently was tested for influenza at the shelter however it came back negative patient on presentation to the hospital did have low-grade fever of 99.2 F did have O2 sats of 92% currently on 4 L nasal cannula and satting 100% patient did have a normal white count with mild lymphopenia D-dimer was elevated creatinine was normal AST mildly elevated troponin not elevated influenza PCR positive COVID testing was negative patient did have a chest x-ray cardiomegaly and mild pulmonary venous congestion, patient did have a CT angiogram of the chest no evidence of PE cardiomegaly pulmonary hypertension and congestion no mention of any consolidation patient was admitted to the hospital started on Tamiflu infectious disease was consulted for further management most information has been obtained from review the chart talking with the family as the patient did not answer any question Review of Systems Positive points has been mentioned in HPI complete review could not be obtained because of his underlying mental status Past Medical History Past Medical History: Atrial Fibrillation, Heart Failure, COPD, CVA/TIA, Dementia, Hyperlipidemia, Hypertension, Myocardial Infarction ([place]), Osteoarthritis ([place]) Additional Past Medical History / Comment(s): chronic back pain, sciatica, vertigo, see Dr Newell H & P Last Myocardial Infarction Date:: 1999 History of Any Multi-Drug Resistant Organisms: None Reported Past Surgical History: Cholecystectomy, Coronary Bypass/CABG, Hernia Repair, Pacemaker Additional Past Surgical History / Comment(s): triple bypass 1989 Past Anesthesia/Blood Transfusion Reactions: Motion Sickness Type of Cardiac Device: Permanent Pacemaker Device Placement Date:: 2017 Past Psychological History: No Psychological Hx Reported Smoking Status: Former smoker Past Alcohol Use History: None Reported Past Drug Use History: None Reported - Past Family History Father Family Medical History: Cancer Additional Family Medical History / Comment(s): lymphoma Brother(s) Family Medical History: Cancer Medications and Allergies Home Medications Medication Instructions Recorded Confirmed Type Metoprolol Succinate [Toprol XL] 25 mg PO HS 06/27/19 09/06/22 History Acetaminophen Tab [Tylenol] 650 mg PO DAILY 08/17/20 09/06/22 History Aspirin 81 mg PO DAILY 08/17/20 09/06/22 History Lactose-Reduced Food [Ensure Plus] 237 ml PO BID@0900,1700 08/17/20 09/06/22 History Midodrine HCl [ProAmatine] 10 mg PO TID@0800,1200,1700 08/17/20 09/06/22 History Natural Balance Tears 1 drop BOTH EYES BID 08/17/20 09/06/22 History Tamsulosin [Flomax] 0.4 mg PO Q48H 08/17/20 09/06/22 History busPIRone HCl [Buspar] 5 mg PO TID@0900,1300,1800 08/17/20 09/06/22 History polyethylene glycoL 3350 [Miralax] 17 gm PO DAILY 08/17/20 09/06/22 History Cyanocobalamin [Vitamin B-12] 500 mcg PO HS 05/09/21 09/06/22 History Melatonin 6 mg PO HS 05/09/21 09/06/22 History Acetaminophen Tab [Tylenol] 650 mg PO Q4H PRN 09/06/22 09/06/22 History Furosemide [Lasix] 40 mg PO BID@0600,1400 09/06/22 09/06/22 History Loperamide HCl [Imodium A-D] 2 - 4 mg PO QID PRN MDD 8mg 09/06/22 09/06/22 History traZODone HCL [Desyrel] 100 mg PO HS 09/06/22 09/06/22 History Allergies Allergy/AdvReac Type Severity Reaction Status Date / Time No Known Allergies Allergy Verified 09/06/22 21:50 Physical Exam Vitals: Vital Signs Temp Pulse Resp BP Pulse Ox 09/07/22 09:38 59 L 18 137/75 95 09/07/22 08:00 65 09/07/22 07:53 62 09/07/22 07:04 98.8 F 09/07/22 06:46 65 22 121/67 94 L 09/07/22 03:40 59 L 20 117/62 97 09/07/22 01:30 59 L 99/53 96 09/07/22 00:11 99.1 F 60 18 105/79 97 09/06/22 21:25 71 18 121/70 96 09/06/22 19:28 61 09/06/22 19:20 60 09/06/22 19:16 60 18 121/68 96 09/06/22 18:23 26 H 09/06/22 18:11 99.2 F 61 24 116/66 92 L Intake and Output 09/06/22 09/07/22 09/07/22 22:59 06:59 14:59 Other: Weight 74.843 kg GENERAL DESCRIPTION: Elderly male lying in bed, no distress. No tachypnea or accessory muscle of respiration use. HEENT: Shows Pallor , no scleral icterus. Oral mucous membrane is dry. No pharyngeal erythema or thrush NECK: Trachea central, no thyromegaly. LUNGS: Unlabored breathing. Coarse breath sounds bilaterally. HEART: S1, S2, regular rate and rhythm. No loud murmur ABDOMEN: Soft, no tenderness , guarding or rigidity, no organomegaly EXTREMITIES: No edema of feet. SKIN: No rash, no masses palpable. NEUROLOGICAL: The patient is sleepy lethargic orientation could not be determined Results CBC & Chem 7: 09/08/22 07:28 09/08/22 07:28 Labs: Abnormal Lab Results - Last 24 Hours (Table) 09/06/22 09/06/22 09/06/22 Range/Units 19:09 19:09 19:09 RBC 4.23 L (4.30-5.90) m/uL Hgb 12.7 L (13.0-17.5) gm/dL Hct 38.0 L (39.0-53.0) % Plt Count (150-450) k/uL Lymphocytes # 0.5 L (1.0-4.8) k/uL D-Dimer 5.45 H (<0.60) mg/L FEU BUN 41 H (9-20) mg/dL Glucose 107 H (74-99) mg/dL Magnesium 2.5 H (1.6-2.3) mg/dL Total Bilirubin 2.1 H (0.2-1.3) mg/dL Delta Bilirubin (0.0-0.2) mg/dL AST 72 H (17-59) U/L Troponin I (0.000-0.034) ng/mL Total Protein (6.3-8.2) g/dL Influenza Type A (PCR) (Not Detectd) 09/06/22 09/06/22 09/07/22 Range/Units 19:09 21:50 07:37 RBC (4.30-5.90) m/uL Hgb (13.0-17.5) gm/dL Hct (39.0-53.0) % Plt Count (150-450) k/uL Lymphocytes # (1.0-4.8) k/uL D-Dimer (<0.60) mg/L FEU BUN 38 H (9-20) mg/dL Glucose (74-99) mg/dL Magnesium (1.6-2.3) mg/dL Total Bilirubin 1.8 H (0.2-1.3) mg/dL Delta Bilirubin 0.7 H (0.0-0.2) mg/dL AST 72 H (17-59) U/L Troponin I 0.194 H* (0.000-0.034) ng/mL Total Protein 5.9 L (6.3-8.2) g/dL Influenza Type A (PCR) Detected A (Not Detectd) 09/07/22 09/07/22 Range/Units 07:37 07:37 RBC 3.98 L (4.30-5.90) m/uL Hgb 11.8 L (13.0-17.5) gm/dL Hct 36.3 L (39.0-53.0) % Plt Count 142 L (150-450) k/uL Lymphocytes # 0.5 L (1.0-4.8) k/uL D-Dimer (<0.60) mg/L FEU BUN (9-20) mg/dL Glucose (74-99) mg/dL Magnesium (1.6-2.3) mg/dL Total Bilirubin (0.2-1.3) mg/dL Delta Bilirubin (0.0-0.2) mg/dL AST (17-59) U/L Troponin I 0.162 H* (0.000-0.034) ng/mL Total Protein (6.3-8.2) g/dL Influenza Type A (PCR) (Not Detectd) Assessment and Plan (1) Influenza A Current Visit: Yes Status: Acute Code(s): J10.1 - FLU DUE TO OTH IDENT INFLUENZA VIRUS W OTH RESP MANIFEST SNOMED Code(s): 854003748 Plan: 1patient presented to hospital with increasing shortness of breath chest congestion which is likely multifactorial possible CHF exacerbation plus minus a component of acute influenza A clinically not behaving as pneumonia patient with no fever or elevated white count. 2 We will check a CRP and procalcitonin level 3patient to continue with the Tamiflu to finish a 5-day course of therapy 4droplet isolation We will follow on clinical condition and cultures to further adjust medication if needed Thank you for this consultation we will follow the patient along with you Time with Patient: Greater than 30
[2022-09-08] MEDS ORDERED: FUROSEMIDE 10 MG/ML 2 ML VIAL IV ONE (00:41)
[2022-09-08] MEDS ORDERED: methylPREDNISolone SOD SUCCI 40 MG/ML 1 ML VIAL IV STA (00:42)
[2022-09-08] MEDS: OSELTAMIVIR 60 MG/10 ML ORAL SYRINGE PO SCH ×3 (00:43→23:47)
--- NOTE | 2022-09-08 01:18 | XR ---
EXAMINATION TYPE: XR chest 1V portable DATE OF EXAM: 09/08/2022 COMPARISON: 09/06/2022 HISTORY: Wheezing TECHNIQUE: Single view FINDINGS: Heart is enlarged. No heart failure. There is coarsening of the pulmonary interstitial arie ings. There is a left axillary pacemaker. There are sternal wires. IMPRESSION: Cardiomegaly. Mild pulmonary fibrosis. No obvious heart failure. No pleural fluid. No adverse change compared to old exam.
[2022-09-08] MEDS: IPRATROPIUM-ALBUTEROL 3 ML NEB INHALATION PRN ×4 (07:27→19:03)
[2022-09-08 08:06] LABS: Basophils % (A) 0 %; Eosinophils % (A) 0 %; HGB 12.4 gm/dL (13.0-17.5); Lymphocytes # (A) 0.3 k/uL (1.0-4.8); Lymphocytes % (A) 7 %; MCH 29.5 pg (25.0-35.0); MCHC 32.5 g/dL (31.0-37.0); MCV 90.8 fL (80.0-100.0); Mean Platelet Volume 9.2; Monocytes # (A) 0.1 k/uL (0-1.0); Monocytes % (A) 2 %; Neutrophils # (A) 4.1 k/uL (1.3-7.7); Neutrophils % (A) 90 %; Platelet Count 148 k/uL (150-450); RBC 4.19 m/uL (4.30-5.90); RDW 14.2 % (11.5-15.5); WBC 4.5 k/uL (3.8-10.6)
[2022-09-08 08:19] LABS: Albumin 3.7 g/dL (3.5-5.0); Bilirubin, Delta 0.9 mg/dL (0.0-0.2); Bilirubin,Unconjugated 1.1 mg/dL (0.0-1.1); Calcium 8.5 mg/dL (8.4-10.2); Magnesium 2.5 mg/dL (1.6-2.3); Potassium 4.6 mmol/L (3.5-5.1); Total Protein 6.2 g/dL (6.3-8.2)
[2022-09-08] MEDS: busPIRone HCl 5 MG TAB PO SCH ×3 (08:22→17:47)
[2022-09-08] MEDS: ASPIRIN 81 MG PO SCH (08:22)
[2022-09-08] MEDS: HEPARIN SODIUM,PORCINE/PF 5,000 UNIT/0.5 ML SYRINGE SQ SCH ×2 (08:22→21:07)
[2022-09-08] MEDS ORDERED: DEXTROSE 50% SYRINGE 50 ML IVP PRN ×2 (08:50)
[2022-09-08] MEDS ORDERED: methylPREDNISolone SOD SUCCI 40 MG/ML 1 ML VIAL IV SCH (09:00)
[2022-09-08] MEDS: ARTIFICIAL TEARS-HYPROMELLOSE DROPS 15 ML BTL BOTH EYES SCH (09:13)
[2022-09-08] MEDS: FUROSEMIDE 10 MG/ML 4 ML VIAL IV SCH ×2 (10:27→21:07)
[2022-09-08] MEDS: FAMOTIDINE 20 MG/2 ML VIAL IV SCH ×2 (10:27→21:07)
--- NOTE | 2022-09-08 10:40 | CONS ---
CONSULTATION HISTORY OF PRESENT ILLNESS: This is an 89-year-old elderly gentleman with sick sinus syndrome, cardiomyopathy with ejection fraction in the 30% to 35% range, who came into the hospital after being sent from the [facility]. There were concern with worsening shortness of breath, congestion for 4 days and requiring supplemental oxygen. He has some dementia as well. This gentleman has a sick sinus syndrome, has a functioning permanent pacemaker, which seems to be working well. He also has some dementia, some autonomic dysfunction and he takes midodrine. After coming here, he was found to be short of breath, mild congestive heart failure, received some diuretics, felt better. Oxygen saturation improved. He has history of CAD, prior bypass surgery, sick sinus syndrome, permanent pacemaker. He also tested positive for influenza A. At the time of my evaluation, he is actually resting comfortably and oxygen saturation on 2 L is 95%. PAST MEDICAL HISTORY: 1. CAD with prior bypass surgery. 2. Ischemic cardiomyopathy, ejection fraction in the 35% range. 3. Sick sinus syndrome with a biventricular pacemaker. 4. History of underlying atrial fibrillation. MEDICATIONS AT HOME: 1. Lasix 40 mg. 2. Metoprolol succinate 25 mg. 3. Melatonin. 4. Aspirin. 5. Flomax. 6. Midodrine. ALLERGIES: None. PHYSICAL EXAMINATION: VITAL SIGNS: Blood pressure is 140/70, pulse rate is about 70. HEENT: Unremarkable. Fundus was not examined by me. NECK: Supple. There is JVD of a mild degree. HEART: Reveals S1, S2 with a short systolic murmur. LUNGS: Reveal diminished air entry in bilateral lung nazario. ABDOMEN: Soft, nontender. LOWER EXTREMITIES: Revealed diminished pulses. CENTRAL NERVOUS SYSTEM: Grossly within normal limits without focal motor deficits. LABORATORY DATA: Reveals that his BNP was 8980. Two troponins are abnormal at 0.1 and 0.1. His creatinine is in the normal range. IMPRESSION: 1. Exacerbation of congestive heart failure. 2. Ischemic cardiomyopathy with prior bypass surgery. 3. Influenza A. 4. Sick sinus syndrome with a permanent biventricular pacemaker. RECOMMENDATIONS: I am recommending that we increase the Lasix to 40 mg IV push q.12 hours. Check a BMP this evening and tomorrow. Check echocardiogram to assess LV function. Based on clinical course, we will make further recommendations. MMODL / IJN: [id number] /
--- NOTE | 2022-09-08 12:16 | P.PN ---
Subjective This is a pleasant 89 his old male with multiple medical problems as below including CHF and atrial fibrillation not on anticoagulation. Presents because of worsening dyspnea. Patient is poor historian given his history of dementia as per at bedside. Muscle information obtained from staff, records and at bedside. patient is at [facility] has been having chest congestion since last Sunday, as per his inflow is a test came back negative then at [facility]. Because of nonimprovement patient was sent to emergency room . Patient denies chest pain. No abdominal pain or vomiting or diarrhea. Patient denies diarrhea or abdominal pain or vomiting, no urinary complaints. No new weakness or numbness however patient looks generally weak. Patient is a febrile and the rest of vitals are stable and he is saturating 97% on 2 L oxygen CBC showed mild anemia with 12.7. D-dimer elevated 5.4. Creatinine 1.2 Rest of BMP and electrolytes are unremarkable. Bilirubin is slightly elevated 2.1, AST slightly elevated at 72 but normal ALT at 40. Troponin elevated 0.19. ProBNP is elevated 8980. Influenza A is detected Rest of our pharmacists including RSV, influenza B and sanchez are not detected CTA of the chest: No pulmonary embolism. Cardiomegaly, pulmonary hypertension and pulmonary vascular congestion, correlate with serum BNP congestive heart failure EKG showing ventricular paced rhythm Chest x-ray showing also possible CHF 09/08/2022 Today patient was submitted more dyspneic and little wheezing and he was saturating low 90s on 4 L oxygen per nasal cannula therefore we gave him 1 dose of systemic Solu-Medrol 40 mg and to start him on Symbicort as well as receiving the do not. He remains on Tamiflu for his influenza infection, chest x-ray showing coursing PULMONARY interstitial markings, no CHF. However proBNP is 8980, down to 47.0, market consultant on the case, currently on IV Lasix 40 mg twice daily increased from 20 yesterday. Creatinine 1.0 No fever, rest of Vitas looks stable. Objective - Vital Signs Vital signs: Vital Signs Temp 98.5 F 09/08/22 11:16 Pulse 72 09/08/22 11:24 Resp 18 09/08/22 11:16 BP 165/94 09/08/22 11:16 Pulse Ox 98 09/08/22 11:16 FiO2 Intake & Output 09/07/22 09/08/22 09/08/22 18:59 06:59 18:59 Output Total 600 30 Balance -600 -30 Weight 93 kg Output: Urine 600 Post Void Residual 30 Other: Voiding Method External Catheter External Catheter # Bowel Movements 1 - Exam -GENERAL: The patient is alert and oriented x1, confused at baseline, looks tired and lethargic, not in any acute distress. Well developed, well nourished. HEENT: Pupils are round and equally reacting to light. EOMI. No scleral icterus. No conjunctival pallor. Normocephalic, atraumatic. No pharyngeal erythema. No thyromegaly. CARDIOVASCULAR: S1 and S2 present. No murmurs, rubs, or gallops. -PULMONARY: Chest is clear to auscultation, mild bilateral scattered wheezing . No crackles. ABDOMEN: Soft, nontender, nondistended, normoactive bowel sounds. No palpable organomegaly. MUSCULOSKELETAL: No joint swelling or deformity. EXTREMITIES: No cyanosis, clubbing, or pedal edema. NEUROLOGICAL: Gross neurological examination did not reveal any focal deficits. SKIN: No rashes. no petechiae. - Labs CBC & Chem 7: 09/08/22 07:28 09/08/22 07:28 Labs: Abnormal Lab Results - Last 24 Hours (Table) 09/08/22 09/08/22 09/08/22 Range/Units 07:28 07:28 07:28 RBC 4.19 L (4.30-5.90) m/uL Hgb 12.4 L (13.0-17.5) gm/dL Hct 38.0 L (39.0-53.0) % Plt Count 148 L (150-450) k/uL Lymphocytes # 0.3 L (1.0-4.8) k/uL Carbon Dioxide 31 H (22-30) mmol/L BUN 34 H (9-20) mg/dL Glucose 142 H (74-99) mg/dL Magnesium 2.5 H (1.6-2.3) mg/dL Total Bilirubin 2.0 H (0.2-1.3) mg/dL Delta Bilirubin 0.9 H (0.0-0.2) mg/dL AST 63 H (17-59) U/L C-Reactive Protein 8.0 H (<1.0) mg/dL Total Protein 6.2 L (6.3-8.2) g/dL Procalcitonin 0.16 H (0.02-0.09) ng/mL Microbiology - Last 24 Hours (Table) 09/06/22 19:09 Blood Culture - Preliminary Blood No Growth after 24 hours 09/06/22 19:09 Blood Culture - Preliminary Blood No Growth after 24 hours Assessment and Plan Assessment: Influenza A infection, less likely pneumonia Acute and chronic systolic CHF exacerbation, ejection fraction 35% Elevated troponin , secondary to above mildly elevated liver enzymes Chronic atrial fibrillation, not on anticoagulation History of CVA/TIA Hypertension Hyperlipidemia History of osteoarthritis History of chronic back pain with sciatic History of vertigo History of coronary artery disease status post bypass/CABG History of sick sinus syndrome status post permanent pacemaker Plan: Start Tamiflu Continue with IV Lasix Add Symbicort, continue with bronchodilator Monitoring urine inputt and output and creatinine with electrolytes Cardiology consult Infectious incision consult Labs and medication were reviewed.. Continue same treatment. Continue with symptomatic treatment. Resume home medication. Monitor lytes and vitals. DVT and GI prophylaxis. Further recommendations as per clinical course of the patient DVT prophylaxis: Subcutaneous heparin GI Prophylaxis: Pepcid From [facility] No code, confirmed with at bedside Prognosis is guarded
[2022-09-08 13:00] LABS: Glucose,Whole Blood 146 mg/dL (70-110)
[2022-09-08] MEDS: INSULIN ASPART (NovoLOG) 100 UNIT/ML VIAL SQ SCH ×3 (13:07→21:08)
--- NOTE | 2022-09-08 15:00 | P.PN ---
Subjective Progress Note Date: 09/08/22 Principal diagnosis: Acute influenza Patient is a 89-year-old male with a past medical history significant for COPD CHF hypertension hyperlipidemia CVA who is a resident of local [place] [facility] got his flu vaccine about 5 days ago patient has been sent to the [place] a [place] [facility] for evaluation of worsening shortness of breath chest congestion symptom apparently has been going on for 4 days before presentation, patient been diagnosed with acute influenza A and possible CHF exacerbation. On today's evaluation that is 09/08/2022, the patient is afebrile he's currently breathing comfortably on 3 L nasal cannula patient seemed to be sleepy and unable for any history or the family the bedside did have some occasional cough no vomiting or diarrhea has been reported Objective - Vital Signs Vital signs: Vital Signs Temp 98.5 F 09/08/22 11:16 Pulse 72 09/08/22 11:24 Resp 18 09/08/22 11:16 BP 165/94 09/08/22 11:16 Pulse Ox 98 09/08/22 11:16 FiO2 Intake & Output 09/07/22 09/08/22 09/08/22 18:59 06:59 18:59 Output Total 600 30 Balance -600 -30 Weight 93 kg Output: Urine 600 Post Void Residual 30 Other: Voiding Method External Catheter External Catheter # Bowel Movements 1 - Exam GENERAL DESCRIPTION: An elderly male lying in bed in no distress RESPIRATORY SYSTEM: Unlabored breathing , decreased breath sounds at bases HEART: S1 S2 regular rate and rhythm , ABDOMEN: Soft , no tenderness EXTREMITIES: No edema feet - Labs CBC & Chem 7: 09/08/22 07:28 09/08/22 07:28 Labs: Abnormal Lab Results - Last 24 Hours (Table) 09/08/22 09/08/22 09/08/22 Range/Units 07:28 07:28 07:28 RBC 4.19 L (4.30-5.90) m/uL Hgb 12.4 L (13.0-17.5) gm/dL Hct 38.0 L (39.0-53.0) % Plt Count 148 L (150-450) k/uL Lymphocytes # 0.3 L (1.0-4.8) k/uL Carbon Dioxide 31 H (22-30) mmol/L BUN 34 H (9-20) mg/dL Glucose 142 H (74-99) mg/dL Magnesium 2.5 H (1.6-2.3) mg/dL Total Bilirubin 2.0 H (0.2-1.3) mg/dL Delta Bilirubin 0.9 H (0.0-0.2) mg/dL AST 63 H (17-59) U/L C-Reactive Protein 8.0 H (<1.0) mg/dL Total Protein 6.2 L (6.3-8.2) g/dL Procalcitonin 0.16 H (0.02-0.09) ng/mL Microbiology - Last 24 Hours (Table) 09/06/22 19:09 Blood Culture - Preliminary Blood No Growth after 24 hours 09/06/22 19:09 Blood Culture - Preliminary Blood No Growth after 24 hours Assessment and Plan (1) Influenza A Current Visit: Yes Status: Acute Code(s): J10.1 - FLU DUE TO OTH IDENT INFLUENZA VIRUS W OTH RESP MANIFEST SNOMED Code(s): 281522645 Plan: 1patient presented to hospital with increasing shortness of breath chest congestion which is likely multifactorial possible CHF exacerbation plus minus a component of acute influenza A clinically not behaving as pneumonia patient with no fever or elevated white count. 2 the patient procalcitonin level is only 0.16 no significant elevated clinically not behaving his bacterial pneumonia 3patient to continue with the Tamiflu to finish a 5-day course of therapy 4droplet isolation Family the bedside questions and concerns were answered Time with Patient: Less than 30
[2022-09-08 17:56] LABS: Glucose,Whole Blood 159 mg/dL (70-110)
[2022-09-08] MEDS: SYMBICORT 160-4.5 MCG INHALER INHALATION SCH (19:03)
[2022-09-08 20:19] LABS: Glucose,Whole Blood 156 mg/dL (70-110)
[2022-09-08] MEDS: CYANOCOBALAMIN 500 MCG TAB PO SCH (21:07)
[2022-09-08] MEDS: traZODone HCL 100 MG TAB PO SCH (21:08)
--- NOTE | 2022-09-09 06:01 | P.PN ---
Subjective Progress Note Date: 09/09/22 Principal diagnosis: Shortness of breath The patient is a pleasant 89-year-old gentleman with CAD and status post CABG and ischemic cardiomyopathy as well as permanent pacemaker and also multiple comorbid conditions including underlying dementia was admitted to the hospital with increasing shortness of breath and was diagnosed with influenza with a component of heart failure as well. September [id number] The patient was seen this morning. He remains confused. He is very poor historian. He is satting okay on room air. He has mild bilateral lower extremities edema. Overall he seems to be better hemodynamically and clinically as well. The last echo showed an EF between 30-35%. I would advise continue the current medical regimen and switch the patient to oral diuretics in the next 12-24 hours. We'll obtain an echo to assess her current ejection fraction since last echo was in 2019 Objective - Vital Signs Vital signs: Vital Signs Temp 97.9 F 09/09/22 00:00 Pulse 60 09/09/22 02:00 Resp 20 09/09/22 02:00 BP 149/71 09/09/22 00:00 Pulse Ox 95 09/09/22 00:00 FiO2 Intake & Output 09/08/22 09/08/22 09/09/22 06:59 18:59 06:59 Intake Total 220 Output Total 600 30 600 Balance -600 190 -600 Weight 93 kg 87 kg Intake: Oral 220 Output: Urine 600 600 Post Void Residual 30 Other: Voiding Method External Catheter External Catheter External Catheter # Bowel Movements 1 0 1 - Constitutional General appearance: Present: no acute distress - Respiratory Respiratory: bilateral: diminished - Cardiovascular Rhythm: regular - Labs CBC & Chem 7: 09/08/22 07:28 09/08/22 07:28 Labs: Abnormal Lab Results - Last 24 Hours (Table) 09/08/22 09/08/22 09/08/22 Range/Units 07:28 07:28 07:28 RBC 4.19 L (4.30-5.90) m/uL Hgb 12.4 L (13.0-17.5) gm/dL Hct 38.0 L (39.0-53.0) % Plt Count 148 L (150-450) k/uL Lymphocytes # 0.3 L (1.0-4.8) k/uL Carbon Dioxide 31 H (22-30) mmol/L BUN 34 H (9-20) mg/dL Glucose 142 H (74-99) mg/dL POC Glucose (mg/dL) (70-110) mg/dL Magnesium 2.5 H (1.6-2.3) mg/dL Total Bilirubin 2.0 H (0.2-1.3) mg/dL Delta Bilirubin 0.9 H (0.0-0.2) mg/dL AST 63 H (17-59) U/L C-Reactive Protein 8.0 H (<1.0) mg/dL Total Protein 6.2 L (6.3-8.2) g/dL Procalcitonin 0.16 H (0.02-0.09) ng/mL 09/08/22 09/08/22 09/08/22 Range/Units 12:58 17:55 20:17 RBC (4.30-5.90) m/uL Hgb (13.0-17.5) gm/dL Hct (39.0-53.0) % Plt Count (150-450) k/uL Lymphocytes # (1.0-4.8) k/uL Carbon Dioxide (22-30) mmol/L BUN (9-20) mg/dL Glucose (74-99) mg/dL POC Glucose (mg/dL) 146 H 159 H 156 H (70-110) mg/dL Magnesium (1.6-2.3) mg/dL Total Bilirubin (0.2-1.3) mg/dL Delta Bilirubin (0.0-0.2) mg/dL AST (17-59) U/L C-Reactive Protein (<1.0) mg/dL Total Protein (6.3-8.2) g/dL Procalcitonin (0.02-0.09) ng/mL Microbiology - Last 24 Hours (Table) 09/06/22 19:09 Blood Culture - Preliminary Blood No Growth after 48 hours 09/06/22 19:09 Blood Culture - Preliminary Blood No Growth after 48 hours Assessment and Plan Assessment: Assessment Shortness of breath which is likely related to the combination of confluence and heart failure Heart failure exacerbation secondary to heart failure with reduced ejection fraction Influenza A infection CAD with status post CABG Ischemic cardiomyopathy Multiple comorbid conditions Plan Continue the current medical regimen Switch the patient to oral diuretics in the next 12-24 hours Continue monitor the kidney function and electrolytes Follow-up with the echocardiogram
[2022-09-09 06:02] LABS: Glucose,Whole Blood 101 mg/dL (70-110)
[2022-09-09] MEDS: INSULIN ASPART (NovoLOG) 100 UNIT/ML VIAL SQ SCH ×4 (06:41→21:10)
[2022-09-09] MEDS: ARTIFICIAL TEARS-HYPROMELLOSE DROPS 15 ML BTL BOTH EYES SCH ×3 (06:41→23:27)
[2022-09-09] MEDS: SYMBICORT 160-4.5 MCG INHALER INHALATION SCH ×2 (07:59→21:20)
[2022-09-09] MEDS: FAMOTIDINE 20 MG/2 ML VIAL IV SCH ×2 (08:18→21:10)
[2022-09-09] MEDS: busPIRone HCl 5 MG TAB PO SCH ×3 (08:18→17:09)
[2022-09-09] MEDS: TAMSULOSIN 0.4 MG CAP.ER.24H PO SCH (08:18)
[2022-09-09] MEDS: FUROSEMIDE 10 MG/ML 4 ML VIAL IV SCH ×2 (08:18→21:10)
[2022-09-09] MEDS: ASPIRIN 81 MG PO SCH (08:18)
[2022-09-09] MEDS: HEPARIN SODIUM,PORCINE/PF 5,000 UNIT/0.5 ML SYRINGE SQ SCH ×2 (08:18→21:10)
[2022-09-09 09:39] LABS: Calcium 8.9 mg/dL (8.4-10.2); Potassium 3.9 mmol/L (3.5-5.1)
--- NOTE | 2022-09-09 11:05 | P.PN ---
Subjective This is a pleasant 89 his old male with multiple medical problems as below including CHF and atrial fibrillation not on anticoagulation. Presents because of worsening dyspnea. Patient is poor historian given his history of dementia as per at bedside. Muscle information obtained from staff, records and at bedside. patient is at [facility] has been having chest congestion since last Sunday, as per his inflow is a test came back negative then at [facility]. Because of nonimprovement patient was sent to emergency room . Patient denies chest pain. No abdominal pain or vomiting or diarrhea. Patient denies diarrhea or abdominal pain or vomiting, no urinary complaints. No new weakness or numbness however patient looks generally weak. Patient is a febrile and the rest of vitals are stable and he is saturating 97% on 2 L oxygen CBC showed mild anemia with 12.7. D-dimer elevated 5.4. Creatinine 1.2 Rest of BMP and electrolytes are unremarkable. Bilirubin is slightly elevated 2.1, AST slightly elevated at 72 but normal ALT at 40. Troponin elevated 0.19. ProBNP is elevated 8980. Influenza A is detected Rest of our pharmacists including RSV, influenza B and sanchez are not detected CTA of the chest: No pulmonary embolism. Cardiomegaly, pulmonary hypertension and pulmonary vascular congestion, correlate with serum BNP congestive heart failure EKG showing ventricular paced rhythm Chest x-ray showing also possible CHF 09/08/2022 Today patient was submitted more dyspneic and little wheezing and he was saturating low 90s on 4 L oxygen per nasal cannula therefore we gave him 1 dose of systemic Solu-Medrol 40 mg and to start him on Symbicort as well as receiving the do not. He remains on Tamiflu for his influenza infection, chest x-ray showing coursing PULMONARY interstitial markings, no CHF. However proBNP is 8980, down to 47.0, restaurant maintenance technician on the case, currently on IV Lasix 40 mg twice daily increased from 20 yesterday. Creatinine 1.0 No fever, rest of Vitas looks stable. 09/09/2012 Patient was admitted with influenza A infection without overt pneumonia and CHF. Patient is doing well and is improving while he is on Tamiflu was on IV Lasix 40 mg twice daily. Creatinine today stable at 1.0 as well as BUN 38. No other new complaints symptoms. However patient looks confused although this is close to his baseline, he follows commands appropriately and answer questions appropriately. He is saturating at 93 L oxygen via nasal cannula Currently remains on Tamiflu and IV Lasix. He is also on inhaled steroids. Echocardiogram still pending results. Possible to monitor will switch his IV Lasix and oral dose I discussed the case with social science research assistant, patient cannot go back to his longterm. He cleared medically during this weekend. Most likely patient will be discharged Sunday or Sunday Objective - Vital Signs Vital signs: Vital Signs Temp 98.6 F 09/09/22 08:00 Pulse 69 09/09/22 08:00 Resp 18 09/09/22 08:00 BP 165/94 09/09/22 08:00 Pulse Ox 94 L 09/09/22 08:00 FiO2 Intake & Output 09/08/22 09/09/22 09/09/22 18:59 06:59 18:59 Intake Total 220 0 Output Total 30 600 600 Balance 190 -600 -600 Weight 87 kg Intake: Oral 220 0 Output: Urine 600 600 Post Void Residual 30 Other: Voiding Method External Catheter External Catheter External Catheter # Bowel Movements 0 1 - Exam -GENERAL: The patient is alert and oriented x1, confused at baseline, looks tired and lethargic, not in any acute distress. Well developed, well nourished. HEENT: Pupils are round and equally reacting to light. EOMI. No scleral icterus. No conjunctival pallor. Normocephalic, atraumatic. No pharyngeal erythema. No thyromegaly. CARDIOVASCULAR: S1 and S2 present. No murmurs, rubs, or gallops. -PULMONARY: Chest is clear to auscultation, mild bilateral scattered wheezing . No crackles. ABDOMEN: Soft, nontender, nondistended, normoactive bowel sounds. No palpable organomegaly. MUSCULOSKELETAL: No joint swelling or deformity. EXTREMITIES: No cyanosis, clubbing, or pedal edema. NEUROLOGICAL: Gross neurological examination did not reveal any focal deficits. SKIN: No rashes. no petechiae. - Labs CBC & Chem 7: 09/08/22 07:28 09/09/22 08:43 Labs: Abnormal Lab Results - Last 24 Hours (Table) 09/08/22 09/08/22 09/08/22 Range/Units 07:28 12:58 17:55 Carbon Dioxide (22-30) mmol/L BUN (9-20) mg/dL Glucose (74-99) mg/dL POC Glucose (mg/dL) 146 H 159 H (70-110) mg/dL Procalcitonin 0.16 H (0.02-0.09) ng/mL 09/08/22 09/09/22 Range/Units 20:17 08:43 Carbon Dioxide 33 H (22-30) mmol/L BUN 38 H (9-20) mg/dL Glucose 111 H (74-99) mg/dL POC Glucose (mg/dL) 156 H (70-110) mg/dL Procalcitonin (0.02-0.09) ng/mL Microbiology - Last 24 Hours (Table) 09/06/22 19:09 Blood Culture - Preliminary Blood No Growth after 48 hours 09/06/22 19:09 Blood Culture - Preliminary Blood No Growth after 48 hours Assessment and Plan Assessment: Influenza A infection, less likely pneumonia Acute and chronic systolic CHF exacerbation, ejection fraction 35% Elevated troponin , secondary to above mildly elevated liver enzymes Chronic atrial fibrillation, not on anticoagulation History of CVA/TIA Hypertension Hyperlipidemia History of osteoarthritis History of chronic back pain with sciatic History of vertigo History of coronary artery disease status post bypass/CABG History of sick sinus syndrome status post permanent pacemaker Plan: Start Tamiflu Continue with IV Lasix Add Symbicort, continue with bronchodilator Monitoring urine inputt and output and creatinine with electrolytes Cardiology consult Infectious incision consult Labs and medication were reviewed.. Continue same treatment. Continue with symptomatic treatment. Resume home medication. Monitor lytes and vitals. DVT and GI prophylaxis. Further recommendations as per clinical course of the patient DVT prophylaxis: Subcutaneous heparin GI Prophylaxis: Pepcid From [facility] Aide No code, confirmed with at bedside Prognosis is guarded
[2022-09-09 11:36] LABS: Glucose,Whole Blood 139 mg/dL (70-110)
[2022-09-09] MEDS: OSELTAMIVIR 60 MG/10 ML ORAL SYRINGE PO SCH ×2 (14:37→23:30)
--- NOTE | 2022-09-09 14:50 | P.PN ---
Subjective Progress Note Date: 09/09/22 Principal diagnosis: Acute influenza Patient is a 89-year-old male with a past medical history significant for COPD CHF hypertension hyperlipidemia CVA who [facility] got his flu vaccine about 5 days ago patient has been [facility] for [facility] of worsening shortness of breath chest congestion symptom apparently has been going on for 4 days before presentation, patient been diagnosed with acute influenza A and possible CHF exacerbation. On today's evaluation that is 09/09/2022, the patient remains to be stable, goran selene is slightly more awake and alert and has eaten some of his lunch per the at the bedside he seemed to be breathing comfortably no worsening cough or sputum production or diarrhea has been reported Objective - Vital Signs Vital signs: Vital Signs Temp 98.6 F 09/09/22 08:00 Pulse 69 09/09/22 08:00 Resp 18 09/09/22 08:00 BP 165/94 09/09/22 08:00 Pulse Ox 94 L 09/09/22 08:00 FiO2 Intake & Output 09/08/22 09/09/22 09/09/22 18:59 06:59 18:59 Intake Total 220 0 Output Total 30 600 1250 Balance 190 -600 -1250 Weight 87 kg Intake: Oral 220 0 Output: Urine 600 1250 Post Void Residual 30 Other: Voiding Method External Catheter External Catheter External Catheter # Bowel Movements 0 1 - Exam GENERAL DESCRIPTION: An elderly male lying in bed in no distress RESPIRATORY SYSTEM: Unlabored breathing , decreased breath sounds at bases HEART: S1 S2 regular rate and rhythm , ABDOMEN: Soft , no tenderness EXTREMITIES: No edema feet - Labs CBC & Chem 7: 09/08/22 07:28 09/09/22 08:43 Labs: Abnormal Lab Results - Last 24 Hours (Table) 09/08/22 09/08/22 09/08/22 Range/Units 12:58 17:55 20:17 Carbon Dioxide (22-30) mmol/L BUN (9-20) mg/dL Glucose (74-99) mg/dL POC Glucose (mg/dL) 146 H 159 H 156 H (70-110) mg/dL 09/09/22 09/09/22 Range/Units 08:43 11:35 Carbon Dioxide 33 H (22-30) mmol/L BUN 38 H (9-20) mg/dL Glucose 111 H (74-99) mg/dL POC Glucose (mg/dL) 139 H (70-110) mg/dL Microbiology - Last 24 Hours (Table) 09/06/22 19:09 Blood Culture - Preliminary Blood No Growth after 48 hours 09/06/22 19:09 Blood Culture - Preliminary Blood No Growth after 48 hours Assessment and Plan (1) Influenza A Current Visit: Yes Status: Acute Code(s): J10.1 - FLU DUE TO OTH IDENT INFLUENZA VIRUS W OTH RESP MANIFEST SNOMED Code(s): 315541549 Plan: 1patient presented to hospital with increasing shortness of breath chest congestion which is likely multifactorial possible CHF exacerbation plus minus a component of acute influenza A clinically not behaving as pneumonia patient with no fever or elevated white count. 2 the patient procalcitonin level is only 0.16 no significant elevated clinically not behaving his bacterial pneumonia 3patient seemed to have a improvement and will continue with the Tamiflu to finish a 5-day course of therapy Time with Patient: Less than 30
[2022-09-09 16:34] LABS: Glucose,Whole Blood 120 mg/dL (70-110)
[2022-09-09 20:03] LABS: Glucose,Whole Blood 107 mg/dL (70-110)
[2022-09-09] MEDS: traZODone HCL 100 MG TAB PO SCH (21:09)
[2022-09-09] MEDS: CYANOCOBALAMIN 500 MCG TAB PO SCH ×2 (21:09→21:10)
[2022-09-09] MEDS: MELATONIN 3 MG TABLET PO PRN (21:09)
[2022-09-10 06:06] LABS: Glucose,Whole Blood 118 mg/dL (70-110)
[2022-09-10] MEDS: INSULIN ASPART (NovoLOG) 100 UNIT/ML VIAL SQ SCH ×4 (06:31→20:52)
[2022-09-10] MEDS: SYMBICORT 160-4.5 MCG INHALER INHALATION SCH ×2 (08:24→21:10)
[2022-09-10] MEDS: IPRATROPIUM-ALBUTEROL 3 ML NEB INHALATION PRN ×2 (08:24→11:46)
--- NOTE | 2022-09-10 08:31 | P.PN ---
Subjective Progress Note Date: 09/10/22 Principal diagnosis: Shortness of breath The patient is a pleasant 89-year-old gentleman with CAD and status post CABG and ischemic cardiomyopathy as well as permanent pacemaker and also multiple comorbid conditions including underlying dementia was admitted to the hospital with increasing shortness of breath and was diagnosed with influenza with a component of heart failure as well. September 092021 The patient was seen this morning. He remains confused. He is very poor historian. He is satting okay on room air. He has mild bilateral lower extremities edema. Overall he seems to be better hemodynamically and clinically as well. The last echo showed an EF between 30-35%. I would advise continue the current medical regimen and switch the patient to oral diuretics in the next 12-24 hours. We'll obtain an echo to assess her current ejection fraction since last echo was in 2019 Jugular 2022 the patient was seen this morning. He remains confused. His oxygen saturation has been normal on room air. I'm going to DC Lasix IV and start the patient on Lasix by mouth 40 mg twice a day. The echo still pending. The last echo showed EF between 30-35%. We will continue follow-up with the patient and continue monitor the kidney function and electrolytes and follow-up with the echocardiogram which was ordered but not done. Objective - Vital Signs Vital signs: Vital Signs Temp 99.7 F H 09/10/22 05:46 Pulse 68 09/10/22 08:26 Resp 18 09/10/22 04:00 BP 141/77 09/10/22 04:00 Pulse Ox 92 L 09/10/22 04:00 FiO2 Intake & Output 09/09/22 09/10/22 09/10/22 18:59 06:59 18:59 Intake Total 118 Output Total 1250 200 Balance -1132 -200 Weight 86.5 kg Intake: Oral 118 Output: Urine 1250 200 Other: Voiding Method External Catheter Diaper - Constitutional General appearance: Present: no acute distress - Respiratory Respiratory: bilateral: diminished - Cardiovascular Heart sounds: normal: S1, S2 - Labs CBC & Chem 7: 09/08/22 07:28 09/09/22 08:43 Labs: Abnormal Lab Results - Last 24 Hours (Table) 09/09/22 09/09/22 09/09/22 Range/Units 08:43 11:35 16:31 Carbon Dioxide 33 H (22-30) mmol/L BUN 38 H (9-20) mg/dL Glucose 111 H (74-99) mg/dL POC Glucose (mg/dL) 139 H 120 H (70-110) mg/dL 09/10/22 Range/Units 06:02 Carbon Dioxide (22-30) mmol/L BUN (9-20) mg/dL Glucose (74-99) mg/dL POC Glucose (mg/dL) 118 H (70-110) mg/dL Microbiology - Last 24 Hours (Table) 09/06/22 19:09 Blood Culture - Preliminary Blood No Growth after 72 hours 09/06/22 19:09 Blood Culture - Preliminary Blood No Growth after 72 hours Assessment and Plan Assessment: Assessment Shortness of breath which is likely related to the combination of confluence and heart failure Heart failure exacerbation secondary to heart failure with reduced ejection fraction Influenza A infection CAD with status post CABG Ischemic cardiomyopathy Multiple comorbid conditions Plan Continue the current medical regimen DC Lasix IV and start the patient on Lasix. Continue monitor the kidney function and electrolytes Follow-up with the echocardiogram
[2022-09-10] MEDS: HEPARIN SODIUM,PORCINE/PF 5,000 UNIT/0.5 ML SYRINGE SQ SCH ×2 (09:36→20:56)
[2022-09-10] MEDS: ASPIRIN 81 MG PO SCH (09:36)
[2022-09-10] MEDS: FUROSEMIDE 10 MG/ML 4 ML VIAL IV SCH (09:36)
[2022-09-10] MEDS: FAMOTIDINE 20 MG/2 ML VIAL IV SCH ×2 (09:36→20:56)
[2022-09-10] MEDS: busPIRone HCl 5 MG TAB PO SCH ×3 (09:36→17:27)
[2022-09-10] MEDS: ARTIFICIAL TEARS-HYPROMELLOSE DROPS 15 ML BTL BOTH EYES SCH ×2 (09:36→20:56)
[2022-09-10 10:17] LABS: Calcium 8.7 mg/dL (8.4-10.2); Potassium 3.3 mmol/L (3.5-5.1)
[2022-09-10 10:27] LABS: Basophils % (A) 0 %; Eosinophils % (A) 0 %; HCT 38.2 % (39.0-53.0); HGB 12.4 gm/dL (13.0-17.5); Lymphocytes % (A) 12 %; MCHC 32.5 g/dL (31.0-37.0); MCV 89.1 fL (80.0-100.0); Mean Platelet Volume 9.4; Monocytes # (A) 0.5 k/uL (0-1.0); Monocytes % (A) 6 %; Neutrophils # (A) 6.6 k/uL (1.3-7.7); Neutrophils % (A) 81 %; Platelet Count 176 k/uL (150-450); RBC 4.29 m/uL (4.30-5.90); WBC 8.1 k/uL (3.8-10.6)
[2022-09-10 11:42] LABS: Glucose,Whole Blood 127 mg/dL (70-110)
--- NOTE | 2022-09-10 11:53 | CA ---
Transthoracic Echo Report Name: Ron Ziegler Age: 89 Gender: M : 1930 Exam Date: 09/09/2022 10:34 Exam Location: [facility] Ht (in): Wt (lb): Ordering Physician: Fanny Swanson MD ([id number]) Attending/Referring Phys: Building Energy Consultant Iman Calderon RDCS Procedure CPT: Indications: access LV function Cardiac Hx: Limited Study Pt is Covid Positive. Technical Quality: Contrast 1: Total Dose (mL): Contrast 2: Total Dose (mL): MEASUREMENTS (Male / Female) Normal Values FINDINGS Left Ventricle Impaired LV function was EF between 40-45% Right Ventricle Right Atrium Left Atrium Mitral Valve Aortic Valve Tricuspid Valve Pulmonic Valve Pericardium Aorta CONCLUSIONS Limited echocardiogram Technically difficult study A LV function was EF between 40-45% Previewed by: Dr. Ten Malcolm MD (Electronically Signed) Final Date: 10 September 2022 11:53
--- NOTE | 2022-09-10 12:17 | P.PN ---
Subjective This is a pleasant 89 his old male with multiple medical problems as below including CHF and atrial fibrillation not on anticoagulation. Presents because of worsening dyspnea. Patient is poor historian given his history of dementia as per at bedside. Muscle information obtained from staff, records and at bedside. patient is at [facility] has been having chest congestion since last Sunday, as per his inflow is a test came back negative then at [facility]. Because of nonimprovement patient was sent to emergency room . Patient denies chest pain. No abdominal pain or vomiting or diarrhea. Patient denies diarrhea or abdominal pain or vomiting, no urinary complaints. No new weakness or numbness however patient looks generally weak. Patient is a febrile and the rest of vitals are stable and he is saturating 97% on 2 L oxygen CBC showed mild anemia with 12.7. D-dimer elevated 5.4. Creatinine 1.2 Rest of BMP and electrolytes are unremarkable. Bilirubin is slightly elevated 2.1, AST slightly elevated at 72 but normal ALT at 40. Troponin elevated 0.19. ProBNP is elevated 8980. Influenza A is detected Rest of our pharmacists including RSV, influenza B and sanchez are not detected CTA of the chest: No pulmonary embolism. Cardiomegaly, pulmonary hypertension and pulmonary vascular congestion, correlate with serum BNP congestive heart failure EKG showing ventricular paced rhythm Chest x-ray showing also possible CHF 09/08/2022 Today patient was submitted more dyspneic and little wheezing and he was saturating low 90s on 4 L oxygen per nasal cannula therefore we gave him 1 dose of systemic Solu-Medrol 40 mg and to start him on Symbicort as well as receiving the do not. He remains on Tamiflu for his influenza infection, chest x-ray showing coursing PULMONARY interstitial markings, no CHF. However proBNP is 8980, down to 47.0, operations research director on the case, currently on IV Lasix 40 mg twice daily increased from 20 yesterday. Creatinine 1.0 No fever, rest of Vitas looks stable. 09/09/2012 Patient was admitted with influenza A infection without overt pneumonia and CHF. Patient is doing well and is improving while he is on Tamiflu was on IV Lasix 40 mg twice daily. Creatinine today stable at 1.0 as well as BUN 38. No other new complaints symptoms. However patient looks confused although this is close to his baseline, he follows commands appropriately and answer questions appropriately. He is saturating at 93 L oxygen via nasal cannula Currently remains on Tamiflu and IV Lasix. He is also on inhaled steroids. Echocardiogram still pending results. Possible to monitor will switch his IV Lasix and oral dose I discussed the case with social sciences research scientist, patient cannot go back to his [facility]. He cleared medically during this weekend. Most likely patient will be discharged Sunday or Sunday09/10/2022 Patient clinically looks the same, he is improving slowly and gradually, it looks like he is confused at baseline as well. Today he spiked a fever of 101.5 Patient breathing is quiet and he is saturating well at 96% on 2 L oxygen via nasal cannula, no more fever We switch his IV Lasix and to oral Lasix today which looks appropriate Continue on Tamiflu for his influenza infection and probable pneumonia Infectious disease team on the case Objective - Vital Signs Vital signs: Vital Signs Temp 99.7 F H 09/10/22 05:46 Pulse 72 09/10/22 08:33 Resp 18 09/10/22 04:00 BP 141/77 09/10/22 04:00 Pulse Ox 92 L 09/10/22 04:00 FiO2 Intake & Output 09/09/22 09/10/22 09/10/22 18:59 06:59 18:59 Intake Total 118 Output Total 1250 200 Balance -1132 -200 Weight 86.5 kg Intake: Oral 118 Output: Urine 1250 200 Other: Voiding Method External Catheter Diaper - Exam -GENERAL: The patient is alert and oriented x1, confused at baseline, looks tired and lethargic, not in any acute distress. Well developed, well nourished. HEENT: Pupils are round and equally reacting to light. EOMI. No scleral icterus. No conjunctival pallor. Normocephalic, atraumatic. No pharyngeal erythema. No thyromegaly. CARDIOVASCULAR: S1 and S2 present. No murmurs, rubs, or gallops. -PULMONARY: Chest is clear to auscultation, mild bilateral scattered wheezing . No crackles. ABDOMEN: Soft, nontender, nondistended, normoactive bowel sounds. No palpable organomegaly. MUSCULOSKELETAL: No joint swelling or deformity. EXTREMITIES: No cyanosis, clubbing, or pedal edema. NEUROLOGICAL: Gross neurological examination did not reveal any focal deficits. SKIN: No rashes. no petechiae. - Labs CBC & Chem 7: 01/01/23 08:54 09/10/22 08:54 Labs: Abnormal Lab Results - Last 24 Hours (Table) 09/09/22 09/09/22 09/09/22 Range/Units 08:43 11:35 16:31 Carbon Dioxide 33 H (22-30) mmol/L BUN 38 H (9-20) mg/dL Glucose 111 H (74-99) mg/dL POC Glucose (mg/dL) 139 H 120 H (70-110) mg/dL 09/10/22 Range/Units 06:02 Carbon Dioxide (22-30) mmol/L BUN (9-20) mg/dL Glucose (74-99) mg/dL POC Glucose (mg/dL) 118 H (70-110) mg/dL Microbiology - Last 24 Hours (Table) 09/06/22 19:09 Blood Culture - Preliminary Blood No Growth after 72 hours 09/06/22 19:09 Blood Culture - Preliminary Blood No Growth after 72 hours Assessment and Plan Assessment: Influenza A infection, less likely pneumonia Acute and chronic systolic CHF exacerbation, ejection fraction 35% Elevated troponin , secondary to above mildly elevated liver enzymes Chronic atrial fibrillation, not on anticoagulation History of CVA/TIA Hypertension Hyperlipidemia History of osteoarthritis History of chronic back pain with sciatic History of vertigo History of coronary artery disease status post bypass/CABG History of sick sinus syndrome status post permanent pacemaker Plan: Start Tamiflu Continue with IV Lasix Add Symbicort, continue with bronchodilator Monitoring urine inputt and output and creatinine with electrolytes Cardiology consult Infectious incision consult Labs and medication were reviewed.. Continue same treatment. Continue with symptomatic treatment. Resume home medication. Monitor lytes and vitals. DVT and GI prophylaxis. Further recommendations as per clinical course of the patient DVT prophylaxis: Subcutaneous heparin GI Prophylaxis: Pepcid From [facility] No code, confirmed with at bedside Prognosis is guarded
[2022-09-10] MEDS ORDERED: Potassium Replacement Protocol 1 EACH MISC MISCELLANE PRN (12:39)
[2022-09-10] MEDS: OSELTAMIVIR 60 MG/10 ML ORAL SYRINGE PO SCH (14:02)
[2022-09-10] MEDS: POTASSIUM CHLORIDE ER 20 MEQ TAB.ER PO SCH ×2 (14:02→15:22)
[2022-09-10] MEDS: FUROSEMIDE 40 MG TAB PO SCH (15:22)
[2022-09-10 16:41] LABS: Glucose,Whole Blood 127 mg/dL (70-110)
[2022-09-10 20:07] LABS: Glucose,Whole Blood 117 mg/dL (70-110)
[2022-09-10] MEDS: traZODone HCL 100 MG TAB PO SCH (20:57)
[2022-09-11] MEDS: OSELTAMIVIR 60 MG/10 ML ORAL SYRINGE PO SCH ×2 (00:32→17:22)
[2022-09-11 06:13] LABS: Glucose,Whole Blood 113 mg/dL (70-110)
[2022-09-11] MEDS: INSULIN ASPART (NovoLOG) 100 UNIT/ML VIAL SQ SCH ×4 (06:26→20:42)
--- NOTE | 2022-09-11 07:01 | P.PN ---
Subjective Progress Note Date: 09/11/22 Principal diagnosis: Shortness of breath The patient is a pleasant 89-year-old gentleman with CAD and status post CABG and ischemic cardiomyopathy as well as permanent pacemaker and also multiple comorbid conditions including underlying dementia was admitted to the hospital with increasing shortness of breath and was diagnosed with influenza with a component of heart failure as well. September 092021 The patient was seen this morning. He remains confused. He is very poor historian. He is satting okay on room air. He has mild bilateral lower extremities edema. Overall he seems to be better hemodynamically and clinically as well. The last echo showed an EF between 30-35%. I would advise continue the current medical regimen and switch the patient to oral diuretics in the next 12-24 hours. We'll obtain an echo to assess her current ejection fraction since last echo was in 2019 09/10/2022 The patient was seen this morning. He remains confused. His oxygen saturation has been normal on room air. I'm going to DC Lasix IV and start the patient on Lasix by mouth 40 mg twice a day. The echo still pending. The last echo showed EF between 30-35%. We will continue follow-up with the patient and continue monitor the kidney function and electrolytes and follow-up with the echocardiogram which was ordered but not done. 09/11/2022 The patient was seen and evaluated this morning. He remains confused significant change in mental status. Overall he remains euvolemic on examination. Lasix IV was switched into Lasix by mouth yesterday. The echocardiogram from this admission showed an EF between 40-45%. From a cardiovascular standpoint of view, the patient can be discharged into an extended-care facility. We'll follow-up with the patient on when necessary Objective - Vital Signs Vital signs: Vital Signs Temp 98.4 F 09/11/22 04:00 Pulse 60 09/11/22 04:00 Resp 18 09/11/22 04:00 BP 143/72 09/11/22 04:00 Pulse Ox 95 09/11/22 04:00 FiO2 Intake & Output 09/10/22 09/10/22 09/11/22 06:59 18:59 06:59 Intake Total 20 20 Output Total 200 118 Balance -200 20 -98 Weight 86.5 kg 83.5 kg Intake: IV 20 20 Invasive Line 1 20 20 Oral 0 Output: Urine 200 118 Other: Voiding Method Diaper Diaper Diaper # Voids 1 # Bowel Movements 1 - Constitutional General appearance: Present: no acute distress - Labs CBC & Chem 7: 09/10/22 08:54 09/10/22 08:54 Labs: Abnormal Lab Results - Last 24 Hours (Table) 09/10/22 09/10/22 09/10/22 Range/Units 08:54 08:54 11:40 RBC 4.29 L (4.30-5.90) m/uL Hgb 12.4 L (13.0-17.5) gm/dL Hct 38.2 L (39.0-53.0) % Potassium 3.3 L (3.5-5.1) mmol/L Carbon Dioxide 32 H (22-30) mmol/L BUN 35 H (9-20) mg/dL Glucose 116 H (74-99) mg/dL POC Glucose (mg/dL) 127 H (70-110) mg/dL 09/10/22 09/10/22 09/11/22 Range/Units 16:38 20:05 06:12 RBC (4.30-5.90) m/uL Hgb (13.0-17.5) gm/dL Hct (39.0-53.0) % Potassium (3.5-5.1) mmol/L Carbon Dioxide (22-30) mmol/L BUN (9-20) mg/dL Glucose (74-99) mg/dL POC Glucose (mg/dL) 127 H 117 H 113 H (70-110) mg/dL Microbiology - Last 24 Hours (Table) 09/06/22 19:09 Blood Culture - Preliminary Blood No Growth after 96 hours 09/06/22 19:09 Blood Culture - Preliminary Blood No Growth after 96 hours Assessment and Plan Assessment: Assessment Shortness of breath which is likely related to the combination of confluence and heart failure Heart failure exacerbation secondary to heart failure with reduced ejection fraction Influenza A infection CAD with status post CABG Ischemic cardiomyopathy Multiple comorbid conditions Plan Continue the current medical regimen We will follow-up with the patient on when necessary.
[2022-09-11] MEDS: SYMBICORT 160-4.5 MCG INHALER INHALATION SCH ×2 (07:43→19:43)
[2022-09-11 08:10] LABS: Calcium 8.9 mg/dL (8.4-10.2); Potassium 3.9 mmol/L (3.5-5.1)
[2022-09-11 08:21] LABS: Basophils % (A) 0 %; Eosinophils % (A) 0 %; HCT 41.1 % (39.0-53.0); HGB 13.2 gm/dL (13.0-17.5); Hypochromasia Moderate; Lymphocytes # (A) 0.9 k/uL (1.0-4.8); Lymphocytes % (A) 10 %; MCH 29.7 pg (25.0-35.0); MCHC 32.1 g/dL (31.0-37.0); MCV 92.4 fL (80.0-100.0); Mean Platelet Volume 9.9; Monocytes # (A) 0.7 k/uL (0-1.0); Monocytes % (A) 7 %; Neutrophils # (A) 7.4 k/uL (1.3-7.7); Neutrophils % (A) 81 %; Platelet Count 119 k/uL (150-450); RBC 4.45 m/uL (4.30-5.90); RDW 13.7 % (11.5-15.5); WBC 9.2 k/uL (3.8-10.6)
[2022-09-11] MEDS: ARTIFICIAL TEARS-HYPROMELLOSE DROPS 15 ML BTL BOTH EYES SCH ×2 (08:47→20:59)
[2022-09-11] MEDS: FAMOTIDINE 20 MG/2 ML VIAL IV SCH ×2 (08:51→20:52)
[2022-09-11] MEDS: TAMSULOSIN 0.4 MG CAP.ER.24H PO SCH (08:52)
[2022-09-11] MEDS: FUROSEMIDE 40 MG TAB PO SCH ×2 (08:52→17:23)
[2022-09-11] MEDS: busPIRone HCl 5 MG TAB PO SCH ×3 (08:52→17:23)
[2022-09-11] MEDS: ASPIRIN 81 MG PO SCH (08:52)
[2022-09-11] MEDS: HEPARIN SODIUM,PORCINE/PF 5,000 UNIT/0.5 ML SYRINGE SQ SCH ×2 (08:52→20:55)
[2022-09-11 11:35] LABS: Glucose,Whole Blood 128 mg/dL (70-110)
--- NOTE | 2022-09-11 12:29 | XR ---
EXAMINATION TYPE: XR chest 1V portable DATE OF EXAM: 09/11/2022 Comparison: 09/08/2022 Clinical History: 89-year-old male sob Findings: Left anterior chest wall pacemaker generator with right atrial, right ventricular, and coronary sinus leads. Heart mild to moderately enlarged. Interstitial density remains but show some improvement fro m prior. No pleural effusion. Median sternotomy wires. Impression: Cardiomegaly. There may be residual mild pulmonary vascular congestion though with improvement compar ed to 09/08/2022
--- NOTE | 2022-09-11 14:17 | P.PN ---
Subjective Progress Note Date: 09/10/22 Principal diagnosis: Acute influenza Patient is a 89-year-old male with a past medical history significant for COPD CHF hypertension hyperlipidemia CVA who is a resident of local group home got his flu vaccine about 5 days ago patient has been sent to the ER from a group home for evaluation of worsening shortness of breath chest congestion symptom apparently has been going on for 4 days before presentation, patient been diagnosed with acute influenza A and possible CHF exacerbation. On today's evaluation that is 09/10/2022, the patient continues to be afebrile, patient is mostly back today and apparently has been refusing his breathing treatment per at the bedside oral intakes remains to be poor no vomiting or diarrhea has been reported Objective - Vital Signs Vital signs: Vital Signs Temp 97.4 F L 09/10/22 09:28 Pulse 63 09/10/22 09:28 Resp 19 09/10/22 09:28 BP 132/72 09/10/22 09:28 Pulse Ox 96 09/10/22 09:28 FiO2 Intake & Output 09/09/22 09/10/22 09/10/22 18:59 06:59 18:59 Intake Total 118 10 Output Total 1250 200 Balance -1132 -200 10 Weight 86.5 kg Intake: IV 10 Invasive Line 1 10 Oral 118 Output: Urine 1250 200 Other: Voiding Method External Catheter Diaper Diaper - Exam GENERAL DESCRIPTION: An elderly male lying in bed in no distress RESPIRATORY SYSTEM: Unlabored breathing , decreased breath sounds at bases HEART: S1 S2 regular rate and rhythm , ABDOMEN: Soft , no tenderness EXTREMITIES: No edema feet - Labs CBC & Chem 7: 09/11/22 07:20 09/11/22 07:20 Labs: Abnormal Lab Results - Last 24 Hours (Table) 09/09/22 09/10/22 09/10/22 Range/Units 16:31 06:02 08:54 RBC 4.29 L (4.30-5.90) m/uL Hgb 12.4 L (13.0-17.5) gm/dL Hct 38.2 L (39.0-53.0) % Potassium (3.5-5.1) mmol/L Carbon Dioxide (22-30) mmol/L BUN (9-20) mg/dL Glucose (74-99) mg/dL POC Glucose (mg/dL) 120 H 118 H (70-110) mg/dL 09/10/22 09/10/22 Range/Units 08:54 11:40 RBC (4.30-5.90) m/uL Hgb (13.0-17.5) gm/dL Hct (39.0-53.0) % Potassium 3.3 L (3.5-5.1) mmol/L Carbon Dioxide 32 H (22-30) mmol/L BUN 35 H (9-20) mg/dL Glucose 116 H (74-99) mg/dL POC Glucose (mg/dL) 127 H (70-110) mg/dL Microbiology - Last 24 Hours (Table) 09/06/22 19:09 Blood Culture - Preliminary Blood No Growth after 72 hours 09/06/22 19:09 Blood Culture - Preliminary Blood No Growth after 72 hours Assessment and Plan (1) Influenza A Current Visit: Yes Status: Acute Code(s): J10.1 - FLU DUE TO OTH IDENT INFLUENZA VIRUS W OTH RESP MANIFEST SNOMED Code(s): 150169284 Plan: 1patient presented to hospital with increasing shortness of breath chest congestion which is likely multifactorial possible CHF exacerbation plus minus a component of acute influenza A clinically not behaving as pneumonia patient with no fever or elevated white count. 2 the patient procalcitonin level is only 0.16 no significant elevated clinically not behaving his bacterial pneumonia 3patient to continue with the Tamiflu to finish a 5-day course of therapy and monitor clinical course closely Time with Patient: Less than 30
--- NOTE | 2022-09-11 14:19 | P.PN ---
Subjective Progress Note Date: 09/11/22 Principal diagnosis: Acute influenza Patient is a 89-year-old male with a past medical history significant for COPD CHF hypertension hyperlipidemia CVA who is a resident of local alf got his flu vaccine about 5 days ago patient has been sent to the ER from a alf for evaluation of worsening shortness of breath chest congestion symptom apparently has been going on for 4 days before presentation, patient been diagnosed with acute influenza A and possible CHF exacerbation. On today's evaluation that is 09/11/2022, the patient remains to be afebrile, patient remains to be lethargic, the patient is on 2 L nasal cannula no vomiting or diarrhea has been reported by the family the bedside Objective - Vital Signs Vital signs: Vital Signs Temp 98.1 F 09/11/22 12:00 Pulse 79 09/11/22 12:00 Resp 18 09/11/22 12:00 BP 174/84 09/11/22 12:00 Pulse Ox 91 L 09/11/22 12:00 FiO2 Intake & Output 09/10/22 09/11/22 09/11/22 18:59 06:59 18:59 Intake Total 20 20 20 Output Total 118 Balance 20 -98 20 Weight 83.5 kg Intake: IV 20 20 20 Invasive Line 1 20 20 20 Oral 0 Output: Urine 118 Other: Voiding Method Diaper Diaper Diaper # Voids 1 1 # Bowel Movements 1 1 - Exam GENERAL DESCRIPTION: An elderly male lying in bed in no distress RESPIRATORY SYSTEM: Unlabored breathing , upper airway rhonchi HEART: S1 S2 regular rate and rhythm , ABDOMEN: Soft , no tenderness EXTREMITIES: No edema feet - Labs CBC & Chem 7: 09/11/22 07:20 09/11/22 07:20 Labs: Abnormal Lab Results - Last 24 Hours (Table) 09/10/22 09/10/22 09/11/22 Range/Units 16:38 20:05 06:12 Plt Count (150-450) k/uL Lymphocytes # (1.0-4.8) k/uL Chloride (98-107) mmol/L BUN (9-20) mg/dL Glucose (74-99) mg/dL POC Glucose (mg/dL) 127 H 117 H 113 H (70-110) mg/dL 09/11/22 09/11/22 09/11/22 Range/Units 07:20 07:20 11:32 Plt Count 119 L (150-450) k/uL Lymphocytes # 0.9 L (1.0-4.8) k/uL Chloride 110 H (98-107) mmol/L BUN 36 H (9-20) mg/dL Glucose 105 H (74-99) mg/dL POC Glucose (mg/dL) 128 H (70-110) mg/dL Microbiology - Last 24 Hours (Table) 09/06/22 19:09 Blood Culture - Preliminary Blood No Growth after 96 hours 09/06/22 19:09 Blood Culture - Preliminary Blood No Growth after 96 hours Assessment and Plan (1) Influenza A Current Visit: Yes Status: Acute Code(s): J10.1 - FLU DUE TO OTH IDENT INFLUENZA VIRUS W OTH RESP MANIFEST SNOMED Code(s): 661158216 Plan: 1patient presented to hospital with increasing shortness of breath chest congestion which is likely multifactorial possible CHF exacerbation plus minus a component of acute influenza A clinically not behaving as pneumonia patient with no fever or elevated white count. 2 patient has completed his course of Tamiflu 3chest x-ray repeated this afternoon and it shows overall improvement patient did have a normal white count mentation remains to be an issue may benefit from neurology evaluation. Will recheck his inflammatory markers with a.m. labs Multiple family member at the bedside questions were answered Time with Patient: Less than 30
[2022-09-11 16:45] LABS: Glucose,Whole Blood 97 mg/dL (70-110)
--- NOTE | 2022-09-11 17:18 | P.PN ---
Subjective Progress Note Date: 09/11/22 his old male with multiple medical problems as below including CHF and atrial fibrillation not on anticoagulation. Presents because of worsening dyspnea. Patient is poor historian given his history of dementia as per at bedside. Muscle information obtained from staff, records and at bedside. patient is at [facility] has been having chest congestion since last Sunday, as per his inflow is a test came back negative then at [facility]. Because of nonimprovement patient was sent to emergency room . Patient denies chest pain. No abdominal pain or vomiting or diarrhea. Patient denies diarrhea or abdominal pain or vomiting, no urinary complaints. No new weakness or numbness however patient looks generally weak. Patient is a febrile and the rest of vitals are stable and he is saturating 97% on 2 L oxygen CBC showed mild anemia with 12.7. D-dimer elevated 5.4. Creatinine 1.2 Rest of BMP and electrolytes are unremarkable. Bilirubin is slightly elevated 2.1, AST slightly elevated at 72 but normal ALT at 40. Troponin elevated 0.19. ProBNP is elevated 8980. Influenza A is detected Rest of our pharmacists including RSV, influenza B and sanchez are not detected CTA of the chest: No pulmonary embolism. Cardiomegaly, pulmonary hypertension and pulmonary vascular congestion, correlate with serum BNP congestive heart failure EKG showing ventricular paced rhythm Chest x-ray showing also possible CHF Objective - Vital Signs Vital signs: Vital Signs Temp 98.2 F 09/10/22 20:00 Pulse 70 09/11/22 00:00 Resp 18 09/11/22 00:00 BP 113/58 09/11/22 00:00 Pulse Ox 94 L 09/11/22 00:00 FiO2 Intake & Output 09/10/22 09/10/22 09/11/22 06:59 18:59 06:59 Intake Total 20 10 Output Total 200 118 Balance -200 20 -108 Weight 86.5 kg Intake: IV 20 10 Invasive Line 1 20 10 Oral 0 Output: Urine 200 118 Other: Voiding Method Diaper Diaper Diaper # Voids 1 # Bowel Movements 1 - Exam -GENERAL: The patient is alert and oriented x1, confused at baseline, looks tired and lethargic, not in any acute distress. Well developed, well nourished. HEENT: Pupils are round and equally reacting to light. EOMI. No scleral icterus. No conjunctival pallor. Normocephalic, atraumatic. No pharyngeal erythema. No thyromegaly. CARDIOVASCULAR: S1 and S2 present. No murmurs, rubs, or gallops. -PULMONARY: Chest is clear to auscultation, mild bilateral scattered wheezing . No crackles. ABDOMEN: Soft, nontender, nondistended, normoactive bowel sounds. No palpable organomegaly. MUSCULOSKELETAL: No joint swelling or deformity. EXTREMITIES: No cyanosis, clubbing, or pedal edema. NEUROLOGICAL: Gross neurological examination did not reveal any focal deficits. SKIN: No rashes. no petechiae. - Labs CBC & Chem 7: 09/11/22 07:20 09/11/22 07:20 Labs: Abnormal Lab Results - Last 24 Hours (Table) 09/10/22 09/10/22 09/10/22 Range/Units 06:02 08:54 08:54 RBC 4.29 L (4.30-5.90) m/uL Hgb 12.4 L (13.0-17.5) gm/dL Hct 38.2 L (39.0-53.0) % Potassium 3.3 L (3.5-5.1) mmol/L Carbon Dioxide 32 H (22-30) mmol/L BUN 35 H (9-20) mg/dL Glucose 116 H (74-99) mg/dL POC Glucose (mg/dL) 118 H (70-110) mg/dL 09/10/22 09/10/22 09/10/22 Range/Units 11:40 16:38 20:05 RBC (4.30-5.90) m/uL Hgb (13.0-17.5) gm/dL Hct (39.0-53.0) % Potassium (3.5-5.1) mmol/L Carbon Dioxide (22-30) mmol/L BUN (9-20) mg/dL Glucose (74-99) mg/dL POC Glucose (mg/dL) 127 H 127 H 117 H (70-110) mg/dL Microbiology - Last 24 Hours (Table) 09/06/22 19:09 Blood Culture - Preliminary Blood No Growth after 96 hours 09/06/22 19:09 Blood Culture - Preliminary Blood No Growth after 96 hours Assessment and Plan Assessment: Influenza A infection, less likely pneumonia Acute and chronic systolic CHF exacerbation, ejection fraction 35% Elevated troponin , secondary to above mildly elevated liver enzymes Chronic atrial fibrillation, not on anticoagulation History of CVA/TIA Hypertension Hyperlipidemia History of osteoarthritis History of chronic back pain with sciatic History of vertigo History of coronary artery disease status post bypass/CABG History of sick sinus syndrome status post permanent pacemaker Plan: Start Tamiflu Continue with IV Lasix Add Symbicort, continue with bronchodilator Monitoring urine inputt and output and creatinine with electrolytes Cardiology consult Infectious incision consult Labs and medication were reviewed.. Continue same treatment. Continue with symptomatic treatment. Resume home medication. Monitor lytes and vitals. DVT and GI prophylaxis. Further recommendations as per clinical course of the patient DVT prophylaxis: Subcutaneous heparin GI Prophylaxis: Pepcid From [facility]S IN[facility] BEDS AT [facility] No code, confirmed with at bedside
[2022-09-11] MEDS: IPRATROPIUM-ALBUTEROL 3 ML NEB INHALATION PRN (19:42)
[2022-09-11 20:14] LABS: Glucose,Whole Blood 105 mg/dL (70-110)
[2022-09-11] MEDS: CYANOCOBALAMIN 500 MCG TAB PO SCH (20:55)
[2022-09-11] MEDS: traZODone HCL 100 MG TAB PO SCH (20:55)
[2022-09-11] MEDS: MELATONIN 3 MG TABLET PO PRN (21:52)
[2022-09-12 06:19] LABS: Glucose,Whole Blood 108 mg/dL (70-110)
[2022-09-12] MEDS: INSULIN ASPART (NovoLOG) 100 UNIT/ML VIAL SQ SCH ×4 (06:20→23:57)
[2022-09-12 08:03] LABS: Basophils % (A) 0 %; Eosinophils # (A) 0.1 k/uL (0-0.7); Eosinophils % (A) 1 %; HCT 40.3 % (39.0-53.0); HGB 12.8 gm/dL (13.0-17.5); Hypochromasia Moderate; Lymphocytes # (A) 0.9 k/uL (1.0-4.8); Lymphocytes % (A) 9 %; MCH 29.2 pg (25.0-35.0); MCHC 31.7 g/dL (31.0-37.0); MCV 92.3 fL (80.0-100.0); Mean Platelet Volume 9.4; Monocytes # (A) 0.6 k/uL (0-1.0); Monocytes % (A) 6 %; Neutrophils # (A) 8.6 k/uL (1.3-7.7); Neutrophils % (A) 84 %; Platelet Count 217 k/uL (150-450); RBC 4.36 m/uL (4.30-5.90); RDW 13.5 % (11.5-15.5); WBC 10.3 k/uL (3.8-10.6)
[2022-09-12] MEDS: SYMBICORT 160-4.5 MCG INHALER INHALATION SCH ×2 (08:19→20:47)
[2022-09-12 08:27] LABS: Albumin 3.5 g/dL (3.5-5.0); Calcium 8.8 mg/dL (8.4-10.2); Potassium 3.4 mmol/L (3.5-5.1); Total Bilirubin 3.9 mg/dL (0.2-1.3); Total Protein 6.3 g/dL (6.3-8.2)
[2022-09-12 09:01] LABS: C Reactive Protein 17.6 mg/dL (<1.0)
[2022-09-12] MEDS: busPIRone HCl 5 MG TAB PO SCH ×3 (10:13→17:48)
[2022-09-12] MEDS: FUROSEMIDE 40 MG TAB PO SCH ×2 (10:13→17:48)
[2022-09-12] MEDS: FAMOTIDINE 20 MG/2 ML VIAL IV SCH (10:13)
[2022-09-12] MEDS: ASPIRIN 81 MG PO SCH (10:13)
[2022-09-12] MEDS: HEPARIN SODIUM,PORCINE/PF 5,000 UNIT/0.5 ML SYRINGE SQ SCH (10:14)
[2022-09-12] MEDS: ARTIFICIAL TEARS-HYPROMELLOSE DROPS 15 ML BTL BOTH EYES SCH (10:14)
[2022-09-12 11:39] LABS: Glucose,Whole Blood 104 mg/dL (70-110)
[2022-09-12] MEDS: PIPERACILLIN-TAZOBACTAM 3.375 GM in SODIUM CHLORIDE 0.9% 100 ML IVPB SCH (12:36)
[2022-09-12 16:46] LABS: Glucose,Whole Blood 109 mg/dL (70-110)
--- NOTE | 2022-09-12 20:20 | P.PN ---
Subjective Progress Note Date: 09/12/22 89 his old male with multiple medical problems as below including CHF and atrial fibrillation not on anticoagulation. Presents because of worsening dyspnea. Patient is poor historian given his history of dementia as per at bedside. Muscle information obtained from staff, records and at bedside. patient is at [facility] has been having chest congestion since last Sunday, as per his inflow is a test came back negative then at [facility]. Because of nonimprovement patient was sent to emergency room . Patient denies chest pain. No abdominal pain or vomiting or diarrhea. Patient denies diarrhea or abdominal pain or vomiting, no urinary complaints. No new weakness or numbness however patient looks generally weak. Patient is a febrile and the rest of vitals are stable and he is saturating 97% on 2 L oxygen CBC showed mild anemia with 12.7. D-dimer elevated 5.4. Creatinine 1.2 Rest of BMP and electrolytes are unremarkable. Bilirubin is slightly elevated 2.1, AST slightly elevated at 72 but normal ALT at 40. Troponin elevated 0.19. ProBNP is elevated 8980. Influenza A is detected Rest of our pharmacists including RSV, influenza B and sanchez are not detected CTA of the chest: No pulmonary embolism. Cardiomegaly, pulmonary hypertension and pulmonary vascular congestion, correlate with serum BNP congestive heart failure EKG showing ventricular paced rhythm Chest x-ray showing also possible CHF 24 hour Interval change 09/12/2022 -- patient is seen and evaluated; remains to be afebrile, patient remains to be lethargic, the patient is on 2 L nasal cannula no vomiting or diarrhea has been reported by the family the bedside patient presented to hospital with increasing shortness of breath chest congestion which is likely multifactorial possible CHF exacerbation plus minus a component of acute influenza A clinically not behaving as pneumonia patient with no fever or elevated white count. patient has completed his course of Tamiflu chest x-ray repeated this afternoon and it shows overall improvement patient did have a normal white count mentation remains to be an issue may benefit from neurology evaluation. Will recheck his inflammatory markers with a.m. labs Objective - Vital Signs Vital signs: Vital Signs Temp 97.9 F 09/12/22 08:00 Pulse 68 09/12/22 14:00 Resp 18 09/12/22 16:00 BP 139/63 09/12/22 16:00 Pulse Ox 99 09/12/22 16:00 FiO2 Intake & Output 09/12/22 09/12/22 09/13/22 06:59 18:59 06:59 Weight 83 kg Other: Voiding Method Diaper Diaper Incontinent Incontinent # Voids 3 3 # Bowel Movements 1 - Exam -GENERAL: The patient is alert and oriented x1, confused at baseline, looks tired and lethargic, not in any acute distress. Well developed, well nourished. HEENT: Pupils are round and equally reacting to light. EOMI. No scleral icterus. No conjunctival pallor. Normocephalic, atraumatic. No pharyngeal erythema. No thyromegaly. CARDIOVASCULAR: S1 and S2 present. No murmurs, rubs, or gallops. -PULMONARY: Chest is clear to auscultation, mild bilateral scattered wheezing . No crackles. ABDOMEN: Soft, nontender, nondistended, normoactive bowel sounds. No palpable organomegaly. MUSCULOSKELETAL: No joint swelling or deformity. EXTREMITIES: No cyanosis, clubbing, or pedal edema. NEUROLOGICAL: Gross neurological examination did not reveal any focal deficits. SKIN: No rashes. no petechiae. - Labs CBC & Chem 7: 09/12/22 06:30 09/12/22 06:30 Labs: Abnormal Lab Results - Last 24 Hours (Table) 09/12/22 09/12/22 09/12/22 Range/Units 06:30 06:30 06:30 Hgb 12.8 L (13.0-17.5) gm/dL Neutrophils # 8.6 H (1.3-7.7) k/uL Lymphocytes # 0.9 L (1.0-4.8) k/uL Potassium 3.4 L (3.5-5.1) mmol/L Carbon Dioxide 34 H (22-30) mmol/L BUN 37 H (9-20) mg/dL Glucose 105 H (74-99) mg/dL Total Bilirubin 3.9 H (0.2-1.3) mg/dL C-Reactive Protein 17.6 H (<1.0) mg/dL Procalcitonin 0.15 H (0.02-0.09) ng/mL 09/12/22 09/12/22 Range/Units 12:31 12:31 Hgb (13.0-17.5) gm/dL Neutrophils # (1.3-7.7) k/uL Lymphocytes # (1.0-4.8) k/uL Potassium (3.5-5.1) mmol/L Carbon Dioxide (22-30) mmol/L BUN (9-20) mg/dL Glucose (74-99) mg/dL Total Bilirubin (0.2-1.3) mg/dL C-Reactive Protein 8.9 H (<1.0) mg/dL Procalcitonin 0.14 H (0.02-0.09) ng/mL Microbiology - Last 24 Hours (Table) 09/06/22 19:09 Blood Culture - Preliminary Blood No Growth after 120 hours 09/06/22 19:09 Blood Culture - Preliminary Blood No Growth after 120 hours Assessment and Plan Assessment: Influenza A infection, less likely pneumonia Acute and chronic systolic CHF exacerbation, ejection fraction 35% Elevated troponin , secondary to above mildly elevated liver enzymes Chronic atrial fibrillation, not on anticoagulation History of CVA/TIA Hypertension Hyperlipidemia History of osteoarthritis History of chronic back pain with sciatic History of vertigo History of coronary artery disease status post bypass/CABG History of sick sinus syndrome status post permanent pacemaker Plan: Start Tamiflu Continue with IV Lasix Add Symbicort, continue with bronchodilator Monitoring urine inputt and output and creatinine with electrolytes Cardiology consult Infectious incision consult Labs and medication were reviewed.. Continue same treatment. Continue with symptomatic treatment. Resume home medication. Monitor lytes and vitals. DVT and GI prophylaxis. Further recommendations as per clinical course of the patient DVT prophylaxis: Subcutaneous heparin GI Prophylaxis: Pepcid From [facility] No code, confirmed with at bedside
[2022-09-12 21:33] LABS: Glucose,Whole Blood 113 mg/dL (70-110)
[2022-09-13] MEDS: PIPERACILLIN-TAZOBACTAM 3.375 GM in SODIUM CHLORIDE 0.9% 100 ML IVPB SCH ×4 (00:06→21:25)
[2022-09-13] MEDS: FAMOTIDINE 20 MG/2 ML VIAL IV SCH ×3 (01:12→21:51)
[2022-09-13] MEDS: traZODone HCL 100 MG TAB PO SCH ×2 (01:12→21:51)
[2022-09-13] MEDS: CYANOCOBALAMIN 500 MCG TAB PO SCH ×2 (01:12→21:51)
[2022-09-13] MEDS: ARTIFICIAL TEARS-HYPROMELLOSE DROPS 15 ML BTL BOTH EYES SCH ×3 (01:13→21:52)
[2022-09-13] MEDS: HEPARIN SODIUM,PORCINE/PF 5,000 UNIT/0.5 ML SYRINGE SQ SCH ×3 (01:13→21:51)
[2022-09-13 06:01] LABS: Glucose,Whole Blood 107 mg/dL (70-110)
[2022-09-13] MEDS: INSULIN ASPART (NovoLOG) 100 UNIT/ML VIAL SQ SCH ×4 (06:30→21:58)
[2022-09-13] MEDS: SYMBICORT 160-4.5 MCG INHALER INHALATION SCH ×2 (07:32→21:38)
[2022-09-13] MEDS: FUROSEMIDE 40 MG TAB PO SCH ×2 (09:32→17:20)
[2022-09-13] MEDS: ASPIRIN 81 MG PO SCH (09:32)
[2022-09-13] MEDS: busPIRone HCl 5 MG TAB PO SCH ×3 (09:32→17:20)
[2022-09-13] MEDS: TAMSULOSIN 0.4 MG CAP.ER.24H PO SCH (09:32)
[2022-09-13 11:18] LABS: Glucose,Whole Blood 115 mg/dL (70-110)
[2022-09-13 11:42] VITALS: BMI 28.6
--- NOTE | 2022-09-13 12:36 | P.PN ---
Subjective Progress Note Date: 09/12/22 Principal diagnosis: Acute influenza Patient is a 89-year-old male with a past medical history significant for COPD CHF hypertension hyperlipidemia CVA who [facility] got his flu vaccine about 5 days ago patient has been [facility] for evaluation of worsening shortness of breath chest congestion symptom apparently has been going on for 4 days before presentation, patient been diagnosed with acute influenza A and possible CHF exacerbation. On today's evaluation that is 09/12/2022, the patient did have a fever of 101. 1F last night the patient is afebrile this morning, the patient seemed to be breathing comfortably and is currently on room air patient remains to be lethargic cannot provide any history no vomiting or diarrhea has been reported Objective - Vital Signs Vital signs: Vital Signs Temp 97.9 F 09/12/22 08:00 Pulse 79 09/12/22 08:00 Resp 16 09/12/22 08:00 BP 153/84 09/12/22 08:00 Pulse Ox 95 09/12/22 08:00 FiO2 Intake & Output 09/11/22 09/12/22 09/12/22 18:59 06:59 18:59 Intake Total 20 Balance 20 Weight 83 kg Intake: IV 20 Invasive Line 1 20 Other: Voiding Method Diaper Diaper Incontinent # Voids 1 3 # Bowel Movements 1 1 - Exam GENERAL DESCRIPTION: An elderly male lying in bed in no distress RESPIRATORY SYSTEM: Unlabored breathing , upper airway rhonchi HEART: S1 S2 regular rate and rhythm , ABDOMEN: Soft , no tenderness EXTREMITIES: No edema feet - Labs CBC & Chem 7: 09/12/22 06:30 09/12/22 06:30 Labs: Abnormal Lab Results - Last 24 Hours (Table) 09/11/22 09/12/22 09/12/22 Range/Units 11:32 06:30 06:30 Hgb 12.8 L (13.0-17.5) gm/dL Neutrophils # 8.6 H (1.3-7.7) k/uL Lymphocytes # 0.9 L (1.0-4.8) k/uL Potassium (3.5-5.1) mmol/L Carbon Dioxide (22-30) mmol/L BUN (9-20) mg/dL Glucose (74-99) mg/dL POC Glucose (mg/dL) 128 H (70-110) mg/dL Total Bilirubin (0.2-1.3) mg/dL C-Reactive Protein (<1.0) mg/dL Procalcitonin 0.15 H (0.02-0.09) ng/mL 09/12/22 Range/Units 06:30 Hgb (13.0-17.5) gm/dL Neutrophils # (1.3-7.7) k/uL Lymphocytes # (1.0-4.8) k/uL Potassium 3.4 L (3.5-5.1) mmol/L Carbon Dioxide 34 H (22-30) mmol/L BUN 37 H (9-20) mg/dL Glucose 105 H (74-99) mg/dL POC Glucose (mg/dL) (70-110) mg/dL Total Bilirubin 3.9 H (0.2-1.3) mg/dL C-Reactive Protein 17.6 H (<1.0) mg/dL Procalcitonin (0.02-0.09) ng/mL Microbiology - Last 24 Hours (Table) 09/06/22 19:09 Blood Culture - Preliminary Blood No Growth after 120 hours 09/06/22 19:09 Blood Culture - Preliminary Blood No Growth after 120 hours Assessment and Plan (1) Influenza A Current Visit: Yes Status: Acute Code(s): J10.1 - FLU DUE TO OTH IDENT INFLUENZA VIRUS W OTH RESP MANIFEST SNOMED Code(s): 762192992 Plan: 1patient presented to hospital with increasing shortness of breath chest congestion which is likely multifactorial possible CHF exacerbation plus minus a component of acute influenza A clinically not behaving as pneumonia patient with no fever or elevated white count. 2 patient has completed his course of Tamiflu 3patient with a new fever concerning for possible aspiration pneumonia we will check his inflammatory marker blood culture has been obtained and start the patient on Zosyn monitor clinical course closely Time with Patient: Less than 30
--- NOTE | 2022-09-13 12:39 | P.PN ---
Subjective Progress Note Date: 09/13/22 Principal diagnosis: Acute influenza Patient is a 89-year-old male with a past medical history significant for COPD CHF hypertension hyperlipidemia CVA who [facility] got his flu vaccine about 5 days ago patient has been [facility] for evaluation of worsening shortness of breath chest congestion symptom apparently has been going on for 4 days before presentation, patient been diagnosed with acute influenza A and possible CHF exacerbation. On today's evaluation that is 09/13/2022, the patient fever pattern has improved and did have a temperature of 100F last night and 99.7 this morning patient remains to be lethargic and is breathing comfortably on room air at this point however is satting around 93% no vomiting no diarrhea or any other changes was reported by the nursing staff Objective - Vital Signs Vital signs: Vital Signs Temp 99.7 F H 09/13/22 07:16 Pulse 61 09/13/22 07:16 Resp 16 09/13/22 07:16 BP 142/80 09/13/22 07:16 Pulse Ox 91 L 09/13/22 07:16 FiO2 Intake & Output 09/12/22 09/13/22 09/13/22 18:59 06:59 18:59 Intake Total 480 Balance 480 Weight 85.5 kg 85.5 kg Intake: Oral 480 Other: Voiding Method Diaper Diaper Incontinent Incontinent # Voids 3 3 # Bowel Movements 1 - Exam GENERAL DESCRIPTION: An elderly male lying in bed in no distress RESPIRATORY SYSTEM: Unlabored breathing , upper airway rhonchi HEART: S1 S2 regular rate and rhythm , ABDOMEN: Soft , no tenderness EXTREMITIES: No edema feet - Labs CBC & Chem 7: 09/12/22 06:30 09/12/22 06:30 Labs: Abnormal Lab Results - Last 24 Hours (Table) 09/12/22 09/12/22 09/12/22 Range/Units 12:31 12:31 21:31 POC Glucose (mg/dL) 113 H (70-110) mg/dL C-Reactive Protein 8.9 H (<1.0) mg/dL Procalcitonin 0.14 H (0.02-0.09) ng/mL 09/13/22 Range/Units 11:17 POC Glucose (mg/dL) 115 H (70-110) mg/dL C-Reactive Protein (<1.0) mg/dL Procalcitonin (0.02-0.09) ng/mL Microbiology - Last 24 Hours (Table) 09/06/22 19:09 Blood Culture - Final Blood No Growth after 144 hours 09/06/22 19:09 Blood Culture - Final Blood No Growth after 144 hours Assessment and Plan (1) Influenza A Current Visit: Yes Status: Acute Code(s): J10.1 - FLU DUE TO OTH IDENT INFLUENZA VIRUS W OTH RESP MANIFEST SNOMED Code(s): 450870992 Plan: 1patient presented to hospital with increasing shortness of breath chest congestion which is likely multifactorial possible CHF exacerbation plus minus a component of acute influenza A clinically not behaving as pneumonia patient with no fever or elevated white count. 2 patient has completed his course of Tamiflu 3patient with a new fever concerning for possible aspiration pneumonia, inflammatory markers are not significantly elevated however the patient fever seems to have responded to Zosyn to continue we will try to obtain a sputum to narrow down antibiotics and monitor clinical course closely Time with Patient: Less than 30
--- NOTE | 2022-09-13 16:03 | P.CNNES ---
History of Present Illness Consult date: 09/13/22 Requesting physician: Paras Jasmine Reason for Consult: altered mental status History of Present Illness: This is an 89-year-old gentleman with history of multiple medical problems, including dementia who presented to the emergency department because of worsening of dyspnea. Neurology is consulted for altered mental status. History is obtained from patient's and daughter who are at bedside. During this hospital visit was found that the patient has influenza A PCR. Upon walking into the room the and the daughter were frustated that neurology consulted for confusion since patient has underlying dementia and felt his mentation is just slight off since his recent infection (Influenza). She stated that he resides in [facility] and was puzzled why he has not been discharged yet. According to the the patient has dementia and he has more short-term memory loss while his long-term memory is intact. At baseline he is oriented to self and he is able to feed himself but he needs assistance using the bathroom. He does not have normal conversation since he randomly say things at baseline. Some other workup during this hospitalization consisted of: Patient T-max is 101.5 on 09/10/2022 but he had a fever of 100F yesterday around the 8PM and then today temperature of 99.7F in AM. White blood cell has within normal limits I reviewed the most recent chemistry panel in the sodium calcium AST and ALT is within normal limits. The CRP is 17.6. Influenza A PCR detected while influenza B is nondetected the RSV is not detected. SARS-CoV-2 PCR is not detected. Review of Systems Review of system is limited but the per positive and negative as per HPI. Past Medical History Past Medical History: Atrial Fibrillation, Heart Failure, COPD, CVA/TIA, Dementia, Hyperlipidemia, Hypertension, Myocardial Infarction (VT), Osteoarthritis (OA) Additional Past Medical History / Comment(s): chronic back pain, sciatica, vertigo, see Dr Newell H & P Last Myocardial Infarction Date:: 1999 History of Any Multi-Drug Resistant Organisms: None Reported Past Surgical History: Cholecystectomy, Coronary Bypass/CABG, Hernia Repair, Pacemaker Additional Past Surgical History / Comment(s): triple bypass 1989 Past Anesthesia/Blood Transfusion Reactions: Motion Sickness Type of Cardiac Device: Permanent Pacemaker Device Placement Date:: 2017 Past Psychological History: No Psychological Hx Reported Smoking Status: Former smoker Past Alcohol Use History: None Reported Past Drug Use History: None Reported - Past Family History Father Family Medical History: Cancer Additional Family Medical History / Comment(s): lymphoma Brother(s) Family Medical History: Cancer Medications and Allergies Home Medications Medication Instructions Recorded Confirmed Type Metoprolol Succinate [Toprol XL] 25 mg PO HS 06/27/19 09/06/22 History Acetaminophen Tab [Tylenol] 650 mg PO DAILY 08/17/20 09/06/22 History Aspirin 81 mg PO DAILY 08/17/20 09/06/22 History Lactose-Reduced Food [Ensure Plus] 237 ml PO BID@0900,1700 08/17/20 09/06/22 History Midodrine HCl [ProAmatine] 10 mg PO TID@0800,1200,1700 08/17/20 09/06/22 History Natural Balance Tears 1 drop BOTH EYES BID 08/17/20 09/06/22 History Tamsulosin [Flomax] 0.4 mg PO Q48H 08/17/20 09/06/22 History busPIRone HCl [Buspar] 5 mg PO TID@0900,1300,1800 08/17/20 09/06/22 History polyethylene glycoL 3350 [Miralax] 17 gm PO DAILY 08/17/20 09/06/22 History Cyanocobalamin [Vitamin B-12] 500 mcg PO HS 05/09/21 09/06/22 History Melatonin 6 mg PO HS 05/09/21 09/06/22 History Acetaminophen Tab [Tylenol] 650 mg PO Q4H PRN 09/06/22 09/06/22 History Furosemide [Lasix] 40 mg PO BID@0600,1400 09/06/22 09/06/22 History Loperamide HCl [Imodium A-D] 2 - 4 mg PO QID PRN MDD 8mg 09/06/22 09/06/22 History traZODone HCL [Desyrel] 100 mg PO HS 09/06/22 09/06/22 History Allergies Allergy/AdvReac Type Severity Reaction Status Date / Time No Known Allergies Allergy Verified 09/06/22 21:50 Physical Examination - Vital Signs Vital Signs: Vital Signs Temp Pulse Resp BP Pulse Ox 09/13/22 07:16 99.7 F H 61 16 142/80 91 L 09/13/22 02:00 99.2 F 68 18 148/74 93 L 09/12/22 20:00 100.0 F H 62 23 158/77 94 L 09/12/22 16:00 18 139/63 99 Intake and Output 09/13/22 09/13/22 09/13/22 06:59 14:59 22:59 Intake Total 480 Balance 480 Intake: Oral 480 Other: # Voids 3 Weight 85.5 kg 85.5 kg GENERAL: The patient is lying in bed and appears lethargic and does not appear in acute distress. CHEST: The heart rate is regular rate rhythm. No edema in lowers. LUNG: Is wheezing even without ausculation and having drying cough. Not labored breathing. ABDOMEN/GI: Bowel sounds present in all 4 quadrants. No tenderness to palpation throughout. NEUROLOGICAL: Limited because of cooperation. Higher mental function: The patient is moderately drowsy but is awakeable to voice. He is oriented to self. He stated the year is 2014 and the Month is June (which seems baseline). He stated he is in [place] in [facility]. He correctly stated the current state, [facility], capital [facility]. He correctly named his . Patient is following few simple commands. Language is limited but does not appear aphasic and no neglect. Cranial nerves: The pupils are round, equal and reactive to light. No facial weakness. No dysarthria. Rest is limited because of cooperation. Motor: The strength is limited since patient is lying on his side and hard to assess individual muscle strength. He was able to make fist of both hands. Cerebellum: Unable to assess. Sensation: Unable to assess. Reflexes (right/left): Unable to assess. Results - Laboratory Findings CBC and BMP: 09/12/22 06:30 09/12/22 06:30 Abnormal Lab Findings: Abnormal Labs 09/06/22 09/06/22 09/06/22 19:09 19:09 19:09 RBC 4.23 L Hgb 12.7 L Hct 38.0 L Plt Count Neutrophils # Lymphocytes # 0.5 L D-Dimer 5.45 H Potassium Chloride Carbon Dioxide BUN 41 H Glucose 107 H POC Glucose (mg/dL) Magnesium 2.5 H Total Bilirubin 2.1 H Delta Bilirubin AST 72 H Troponin I C-Reactive Protein Total Protein Procalcitonin Influenza Type A (PCR) 09/06/22 09/06/22 09/07/22 19:09 21:50 07:37 RBC Hgb Hct Plt Count Neutrophils # Lymphocytes # D-Dimer Potassium Chloride Carbon Dioxide BUN 38 H Glucose POC Glucose (mg/dL) Magnesium Total Bilirubin 1.8 H Delta Bilirubin 0.7 H AST 72 H Troponin I 0.194 H* C-Reactive Protein Total Protein 5.9 L Procalcitonin Influenza Type A (PCR) Detected A 09/07/22 09/07/22 09/08/22 07:37 07:37 07:28 RBC 3.98 L Hgb 11.8 L Hct 36.3 L Plt Count 142 L Neutrophils # Lymphocytes # 0.5 L D-Dimer Potassium Chloride Carbon Dioxide BUN Glucose POC Glucose (mg/dL) Magnesium Total Bilirubin Delta Bilirubin AST Troponin I 0.162 H* C-Reactive Protein Total Protein Procalcitonin 0.16 H Influenza Type A (PCR) 09/08/22 09/08/22 09/08/22 07:28 07:28 12:58 RBC 4.19 L Hgb 12.4 L Hct 38.0 L Plt Count 148 L Neutrophils # Lymphocytes # 0.3 L D-Dimer Potassium Chloride Carbon Dioxide 31 H BUN 34 H Glucose 142 H POC Glucose (mg/dL) 146 H Magnesium 2.5 H Total Bilirubin 2.0 H Delta Bilirubin 0.9 H AST 63 H Troponin I C-Reactive Protein 8.0 H Total Protein 6.2 L Procalcitonin Influenza Type A (PCR) 09/08/22 09/08/22 09/09/22 17:55 20:17 08:43 RBC Hgb Hct Plt Count Neutrophils # Lymphocytes # D-Dimer Potassium Chloride Carbon Dioxide 33 H BUN 38 H Glucose 111 H POC Glucose (mg/dL) 159 H 156 H Magnesium Total Bilirubin Delta Bilirubin AST Troponin I C-Reactive Protein Total Protein Procalcitonin Influenza Type A (PCR) 09/09/22 09/09/22 09/10/22 11:35 16:31 06:02 RBC Hgb Hct Plt Count Neutrophils # Lymphocytes # D-Dimer Potassium Chloride Carbon Dioxide BUN Glucose POC Glucose (mg/dL) 139 H 120 H 118 H Magnesium Total Bilirubin Delta Bilirubin AST Troponin I C-Reactive Protein Total Protein Procalcitonin Influenza Type A (PCR) 09/10/22 09/10/22 09/10/22 08:54 08:54 11:40 RBC 4.29 L Hgb 12.4 L Hct 38.2 L Plt Count Neutrophils # Lymphocytes # D-Dimer Potassium 3.3 L Chloride Carbon Dioxide 32 H BUN 35 H Glucose 116 H POC Glucose (mg/dL) 127 H Magnesium Total Bilirubin Delta Bilirubin AST Troponin I C-Reactive Protein Total Protein Procalcitonin Influenza Type A (PCR) 09/10/22 09/10/22 09/11/22 16:38 20:05 06:12 RBC Hgb Hct Plt Count Neutrophils # Lymphocytes # D-Dimer Potassium Chloride Carbon Dioxide BUN Glucose POC Glucose (mg/dL) 127 H 117 H 113 H Magnesium Total Bilirubin Delta Bilirubin AST Troponin I C-Reactive Protein Total Protein Procalcitonin Influenza Type A (PCR) 09/11/22 09/11/22 09/11/22 07:20 07:20 11:32 RBC Hgb Hct Plt Count 119 L Neutrophils # Lymphocytes # 0.9 L D-Dimer Potassium Chloride 110 H Carbon Dioxide BUN 36 H Glucose 105 H POC Glucose (mg/dL) 128 H Magnesium Total Bilirubin Delta Bilirubin AST Troponin I C-Reactive Protein Total Protein Procalcitonin Influenza Type A (PCR) 09/12/22 09/12/22 09/12/22 06:30 06:30 06:30 RBC Hgb 12.8 L Hct Plt Count Neutrophils # 8.6 H Lymphocytes # 0.9 L D-Dimer Potassium 3.4 L Chloride Carbon Dioxide 34 H BUN 37 H Glucose 105 H POC Glucose (mg/dL) Magnesium Total Bilirubin 3.9 H Delta Bilirubin AST Troponin I C-Reactive Protein 17.6 H Total Protein Procalcitonin 0.15 H Influenza Type A (PCR) 09/12/22 09/12/22 09/12/22 12:31 12:31 21:31 RBC Hgb Hct Plt Count Neutrophils # Lymphocytes # D-Dimer Potassium Chloride Carbon Dioxide BUN Glucose POC Glucose (mg/dL) 113 H Magnesium Total Bilirubin Delta Bilirubin AST Troponin I C-Reactive Protein 8.9 H Total Protein Procalcitonin 0.14 H Influenza Type A (PCR) 09/13/22 11:17 RBC Hgb Hct Plt Count Neutrophils # Lymphocytes # D-Dimer Potassium Chloride Carbon Dioxide BUN Glucose POC Glucose (mg/dL) 115 H Magnesium Total Bilirubin Delta Bilirubin AST Troponin I C-Reactive Protein Total Protein Procalcitonin Influenza Type A (PCR) Assessment and Plan Assessment: Encephalopathy due to the underlying hypoxic respiratory distress due to influenza A infection and possible aspiration pneumonia (having fevers, coughing and wheezing). History of dementia (buttermaker memory intact) Influenza A History of stroke/TIA Congestive heart failure Chronic atrial fibrillation on anticoagulation History of sick sinus syndrome status post permanent pacemaker History of coronary artery disease status post the CABG Chronic back pain Plan: Patient refused any neurological workup. She wants the patient to be left alone and would like him transferred back to [facility]. ID is on board We'll defer the rest of medical management to the primary team. The plan was discussed with the patient's and daughter are bedside as well as discussed with the patient's nurse. Thank you for the consultation. Please notify neurology team if any further concerns. Time with Patient: Greater than 30
--- NOTE | 2022-09-13 16:50 | P.PN ---
Subjective Progress Note Date: 09/13/22 89 his old male with multiple medical problems as below including CHF and atrial fibrillation not on anticoagulation. Presents because of worsening dyspnea. Patient is poor historian given his history of dementia as per at bedside. Muscle information obtained from staff, records and at bedside. patient is at [facility] has been having chest congestion since last Sunday, as per his inflow is a test came back negative then at [facility]. Because of nonimprovement patient was sent to emergency room . Patient denies chest pain. No abdominal pain or vomiting or diarrhea. Patient denies diarrhea or abdominal pain or vomiting, no urinary complaints. No new weakness or numbness however patient looks generally weak. Patient is a febrile and the rest of vitals are stable and he is saturating 97% on 2 L oxygen CBC showed mild anemia with 12.7. D-dimer elevated 5.4. Creatinine 1.2 Rest of BMP and electrolytes are unremarkable. Bilirubin is slightly elevated 2.1, AST slightly elevated at 72 but normal ALT at 40. Troponin elevated 0.19. ProBNP is elevated 8980. Influenza A is detected Rest of our pharmacists including RSV, influenza B and sanchez are not detected CTA of the chest: No pulmonary embolism. Cardiomegaly, pulmonary hypertension and pulmonary vascular congestion, correlate with serum BNP congestive heart failure EKG showing ventricular paced rhythm Chest x-ray showing also possible CHF 24 hour Interval change 09/13/2022 did have a temperature of 100F last night and 99.7 this morning patient remains to be lethargic and is breathing comfortably on room air at this point however is satting around 93% no vomiting no diarrhea or any other changes was reported by the nursing staff patient presented to hospital with increasing shortness of breath chest congestion which is likely multifactorial possible CHF exacerbation plus minus a component of acute influenza A clinically not behaving as pneumonia patient with no fever or elevated white count. patient has completed his course of Tamiflu patient with a new fever concerning for possible aspiration pneumonia, inflammatory markers are not significantly elevated however the patient fever seems to have responded to Zosyn to continue we will try to obtain a sputum to narrow down antibiotics and monitor clinical course closely patient has completed his course of Tamiflu chest x-ray repeated this afternoon and it shows overall improvement patient did have a normal white count mentation remains to be an issue may benefit from neurology evaluation. Will recheck his inflammatory markers with a.m. labs Objective - Vital Signs Vital signs: Vital Signs Temp 99.7 F H 09/13/22 07:16 Pulse 61 09/13/22 07:16 Resp 16 09/13/22 07:16 BP 142/80 09/13/22 07:16 Pulse Ox 91 L 09/13/22 07:16 FiO2 Intake & Output 09/12/22 09/13/22 09/13/22 18:59 06:59 18:59 Intake Total 480 Balance 480 Weight 85.5 kg 85.5 kg Intake: Oral 480 Other: Voiding Method Diaper Diaper Incontinent Incontinent # Voids 3 3 # Bowel Movements 1 - Exam -GENERAL: The patient is alert and oriented x1, confused at baseline, looks tire d and lethargic, not in any acute distress. Well developed, well nourished. HEENT: Pupils are round and equally reacting to light. EOMI. No scleral icterus. No conjunctival pallor. Normocephalic, atraumatic. No pharyngeal erythema. No thyromegaly. CARDIOVASCULAR: S1 and S2 present. No murmurs, rubs, or gallops. -PULMONARY: Chest is clear to auscultation, mild bilateral scattered wheezing . No crackles. ABDOMEN: Soft, nontender, nondistended, normoactive bowel sounds. No palpable organomegaly. MUSCULOSKELETAL: No joint swelling or deformity. EXTREMITIES: No cyanosis, clubbing, or pedal edema. NEUROLOGICAL: Gross neurological examination did not reveal any focal deficits. SKIN: No rashes. no petechiae. - Labs CBC & Chem 7: 09/12/22 06:30 09/12/22 06:30 Labs: Abnormal Lab Results - Last 24 Hours (Table) 09/12/22 09/12/22 09/12/22 Range/Units 12:31 12:31 21:31 POC Glucose (mg/dL) 113 H (70-110) mg/dL C-Reactive Protein 8.9 H (<1.0) mg/dL Procalcitonin 0.14 H (0.02-0.09) ng/mL 09/13/22 Range/Units 11:17 POC Glucose (mg/dL) 115 H (70-110) mg/dL C-Reactive Protein (<1.0) mg/dL Procalcitonin (0.02-0.09) ng/mL Microbiology - Last 24 Hours (Table) 09/06/22 19:09 Blood Culture - Final Blood No Growth after 144 hours 09/06/22 19:09 Blood Culture - Final Blood No Growth after 144 hours Assessment and Plan Assessment: Influenza A infection, less likely pneumonia Acute and chronic systolic CHF exacerbation, ejection fraction 35% Elevated troponin , secondary to above mildly elevated liver enzymes Chronic atrial fibrillation, not on anticoagulation History of CVA/TIA Hypertension Hyperlipidemia History of osteoarthritis History of chronic back pain with sciatic History of vertigo History of coronary artery disease status post bypass/CABG History of sick sinus syndrome status post permanent pacemaker Plan: Start Tamiflu Continue with IV Lasix Add Symbicort, continue with bronchodilator Monitoring urine inputt and output and creatinine with electrolytes Cardiology consult Infectious incision consult Labs and medication were reviewed.. Continue same treatment. Continue with symptomatic treatment. Resume home medication. Monitor lytes and vitals. DVT and GI prophylaxis. Further recommendations as per clinical course of the patient DVT prophylaxis: Subcutaneous heparin GI Prophylaxis: Pepcid From [facility] Raegan No code, confirmed with at bedside
[2022-09-13 17:01] LABS: Glucose,Whole Blood 133 mg/dL (70-110)
[2022-09-13 21:05] LABS: Glucose,Whole Blood 115 mg/dL (70-110)
[2022-09-13] MEDS: IPRATROPIUM-ALBUTEROL 3 ML NEB INHALATION PRN (21:37)
[2022-09-13] MEDS: MELATONIN 3 MG TABLET PO PRN (21:51)
[2022-09-14] MEDS: PIPERACILLIN-TAZOBACTAM 3.375 GM in SODIUM CHLORIDE 0.9% 100 ML IVPB SCH ×2 (04:50→11:56)
[2022-09-14 06:29] LABS: Glucose,Whole Blood 121 mg/dL (70-110)
[2022-09-14] MEDS: INSULIN ASPART (NovoLOG) 100 UNIT/ML VIAL SQ SCH ×3 (06:51→16:52)
[2022-09-14] MEDS: IPRATROPIUM-ALBUTEROL 3 ML NEB INHALATION PRN (07:05)
[2022-09-14] MEDS: SYMBICORT 160-4.5 MCG INHALER INHALATION SCH (07:06)
--- NOTE | 2022-09-14 07:56 | XR ---
EXAMINATION TYPE: XR chest 1V DATE OF EXAM: 09/14/2022 COMPARISON: 09/11/2022 HISTORY: 89 year-old male shortness of breath TECHNIQUE: Single frontal view of the chest is obtained. FINDINGS: Median sternotomy wires are present. Left anterior chest wall AICD generator with right at rial, right ventricular, and coronary sinus leads. Heart mildly enlarged. Tortuous/ectatic thoracic a priscilla. Interstitial prominence. Mild patchy peripheral right midlung density. No pleural effusion. IMPRESSION: Similar mild cardiomegaly and interstitial change, possible mild pulmonary vascular conge stion. There may be some early developing infiltrate/consolidation periphery of the right mid lung.
[2022-09-14] MEDS: HEPARIN SODIUM,PORCINE/PF 5,000 UNIT/0.5 ML SYRINGE SQ SCH (09:08)
[2022-09-14] MEDS: busPIRone HCl 5 MG TAB PO SCH ×3 (09:08→17:06)
[2022-09-14] MEDS: ASPIRIN 81 MG PO SCH (09:08)
[2022-09-14] MEDS: FUROSEMIDE 40 MG TAB PO SCH ×2 (09:08→17:06)
[2022-09-14] MEDS: FAMOTIDINE 20 MG/2 ML VIAL IV SCH (09:08)
[2022-09-14] MEDS: ARTIFICIAL TEARS-HYPROMELLOSE DROPS 15 ML BTL BOTH EYES SCH (09:09)
[2022-09-14 11:13] LABS: Glucose,Whole Blood 110 mg/dL (70-110)
[2022-09-14 13:54] VITALS: BP 127/70; PULSE 59; RESP 16; TEMP 96.3
--- NOTE | 2022-09-14 15:00 | P.PN ---
Subjective Progress Note Date: 09/14/22 Principal diagnosis: Acute influenza Patient is a 89-year-old male with a past medical history significant for COPD CHF hypertension hyperlipidemia CVA who is a resident of local custodial got his flu vaccine about 5 days ago patient has been sent to the ER from a custodial for evaluation of worsening shortness of breath chest congestion symptom apparently has been going on for 4 days before presentation, patient been diagnosed with acute influenza A and possible CHF exacerbation. On today's evaluation that is 09/14/2022, the patient is afebrile this morning , the patient is more awake and alert today and did answer some simple question which is improvement, is breathing comfortably in room air no vomiting or diarrhea has been reported Objective - Vital Signs Vital signs: Vital Signs Temp 98.4 F 09/14/22 07:47 Pulse 65 09/14/22 07:47 Resp 20 09/14/22 07:47 BP 153/83 09/14/22 07:47 Pulse Ox 94 L 09/14/22 07:47 FiO2 Intake & Output 09/13/22 09/14/22 09/14/22 18:59 06:59 18:59 Output Total 700 Balance -700 Weight 85.5 kg 85.5 kg Output: Urine 700 Straight 700 Other: Voiding Method Diaper Incontinent # Voids 3 1 # Bowel Movements 1 - Exam GENERAL DESCRIPTION: An elderly male lying in bed in no distress RESPIRATORY SYSTEM: Unlabored breathing , upper airway rhonchi HEART: S1 S2 regular rate and rhythm , ABDOMEN: Soft , no tenderness EXTREMITIES: No edema feet - Labs CBC & Chem 7: 09/12/22 06:30 09/12/22 06:30 Labs: Abnormal Lab Results - Last 24 Hours (Table) 09/13/22 09/13/22 09/14/22 Range/Units 16:59 21:04 06:28 POC Glucose (mg/dL) 133 H 115 H 121 H (70-110) mg/dL Microbiology - Last 24 Hours (Table) 09/12/22 12:30 Blood Culture Gram Stain - Preliminary Blood Blood Culture - Preliminary Coagulase Negative Staph 09/12/22 12:31 Blood Culture - Final Blood Assessment and Plan (1) Influenza A Current Visit: Yes Status: Acute Code(s): J10.1 - FLU DUE TO OTH IDENT INFLUENZA VIRUS W OTH RESP MANIFEST SNOMED Code(s): 421394398 Plan: 1patient presented to hospital with increasing shortness of breath chest congestion which is likely multifactorial possible CHF exacerbation plus minus a component of acute influenza A clinically not behaving as pneumonia patient with no fever or elevated white count. 2 patient has completed his course of Tamiflu 3patient with a new fever concerning for possible aspiration pneumonia, patient seemed to have clinically responded to Zosyn wants to take the patient back to the [facility] antibiotic can be switched over to Avelox 400 daily for 7 days of discharge Time with Patient: Less than 30
--- NOTE | 2022-09-14 15:19 | P.DS ---
Providers Date of admission: 09/06/22 21:28 Attending physician: Zheng Brewer Consults: 09/07/22 06:38 Consult Physician Routine Consulting Provider: Fanny Swanson Consult Reason/Comments: chf Do you want consulting provider notified?: Yes 09/07/22 10:43 Consult Physician Routine Consulting Provider: Jozef Preston Consult Reason/Comments: influenza positive Do you want consulting provider notified?: Yes 09/13/22 14:46 Consult Physician Routine Consulting Provider: Nicholas Pickett Consult Reason/Comments: Altered Mental Status Do you want consulting provider notified?: Yes Primary care physician: Olivia Maximus Hospital Course: Diagnoses: Aspiration pneumonia, improved antibiotic Influenza A infection, less likely pneumonia Acute and chronic systolic CHF exacerbation, ejection fraction 35% Elevated troponin , secondary to above mildly elevated liver enzymes Chronic atrial fibrillation, not on anticoagulation History of CVA/TIA Hypertension Hyperlipidemia History of osteoarthritis History of chronic back pain with sciatic History of vertigo History of coronary artery disease status post bypass/CABG History of sick sinus syndrome status post permanent pacemaker Hospital course: This is a pleasant 89 his old male with multiple medical problems as below including CHF and atrial fibrillation not on anticoagulation. Presents because of worsening dyspnea. Patient is poor historian given his history of dementia as per at bedside. Patient was found to have influenza A infection and he was been followed closely by ID team, he finished his treatment with Tamiflu, and also he had evidence of CHF up on admission that's resolved with IV Lasix. Cardiology already evaluated the patient Patient hospital course has been complicated by aspiration pneumonia responded to therapy with Zosyn. Currently patient is awake and back to basic mentation which is confusion related to his history of dementia. He tolerates diet well, he denies chest pain or dyspnea or abdominal pain. No diarrhea. wants patient back to [facility] which I think it's appropriate Patient was cleared for discharge by infectious disease team and capsule maker Patient is still high-risk for infection and other complications given his advanced age with poor physical performance. He is high-risk for hospitalization as well patient will be discharged on Augmentin per ID team Patient denies any other new alert, awake, confused at baseline,, pleasant symptoms. Problems and management plan were discussed with the patient and he verbalized understanding and acceptance Patient was found stable and can be discharged home in guarded prognosis however he needs follow-up as an outpatient. 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 no distress CVS: S1-S2, RRR, no murmur Lungs: B/L CTA, no wheezing Abdomen: soft, no distention, no tenderness, positive bowel sounds Extremity: no leg edema or induration Time spent more than 35 minutes Patient Condition at Discharge: Stable Plan - Discharge Summary Discharge Rx Participant: Yes New Discharge Prescriptions: New Amoxic-Pot Clav 875-125Mg [Augmentin 875-125] 1 tab PO Q12HR 7 Days #14 tab No Action Metoprolol Succinate [Toprol XL] 25 mg PO HS Natural Balance Tears 1 drop BOTH EYES BID Acetaminophen Tab [Tylenol] 650 mg PO DAILY Aspirin 81 mg PO DAILY busPIRone HCl [Buspar] 5 mg PO TID@0900,1300,1800 Lactose-Reduced Food [Ensure Plus] 237 ml PO BID@0900,1700 Midodrine HCl [ProAmatine] 10 mg PO TID@0800,1200,1700 polyethylene glycoL 3350 [Miralax] 17 gm PO DAILY Tamsulosin [Flomax] 0.4 mg PO Q48H Loperamide HCl [Imodium A-D] 2 - 4 mg PO QID PRN MDD 8mg PRN Reason: Diarrhea Acetaminophen Tab [Tylenol] 650 mg PO Q4H PRN PRN Reason: General Discomfort Cyanocobalamin [Vitamin B-12] 500 mcg PO HS Melatonin 6 mg PO HS traZODone HCL [Desyrel] 100 mg PO HS Furosemide [Lasix] 40 mg PO BID@0600,1400 Discharge Medication List Acetaminophen Tab [Tylenol] 650 mg PO DAILY 08/17/20 [History] Aspirin 81 mg PO DAILY 08/17/20 [History] Natural Balance Tears 1 drop BOTH EYES BID 08/17/20 [History] Tamsulosin [Flomax] 0.4 mg PO Q48H 08/17/20 [History] busPIRone HCl [Buspar] 5 mg PO TID@0900,1300,1800 08/17/20 [History] polyethylene glycoL 3350 [Miralax] 17 gm PO DAILY 08/17/20 [History] Cyanocobalamin [Vitamin B-12] 500 mcg PO HS 05/09/21 [History] Melatonin 6 mg PO HS 05/09/21 [History] Acetaminophen Tab [Tylenol] 650 mg PO Q4H PRN 09/06/22 [History] Furosemide [Lasix] 40 mg PO BID@0600,1400 09/06/22 [History] Loperamide HCl [Imodium A-D] 2 - 4 mg PO QID PRN MDD 8mg 09/06/22 [History] traZODone HCL [Desyrel] 100 mg PO HS 09/06/22 [History] Amoxic-Pot Clav 875-125Mg [Augmentin 875-125] 1 tab PO Q12HR 7 Days #14 tab 09/14/22 [Rx] Lactose-Reduced Food [Ensure Plus] 237 ml PO BID@0900,1700 PRN #0 09/14/22 [Rx] Metoprolol Succinate (ER) [Toprol XL] 12.5 mg PO HS #30 tab 09/14/22 [Rx] Follow up Appointment(s)/Referral(s): Olivia Stroud MD [Primary Care Provider] - 1-2 days
[2022-09-14 16:28] LABS: Glucose,Whole Blood 104 mg/dL (70-110)
--- NOTE | 2022-09-18 11:03 | CDI ---
Documentation Clarification Form Date: 09/18/22 From: Raysa Harrell Admit Date: 09/06/2022 9:28:00 PM Patient Name: Ron Ziegler Visit Number: [id number] Discharge Date: 09/14/2022 6:54:00 PM ATTENTION: The Clinical Documentation Specialists (CDI) and [facility] Coding Staff appreciate your assistance in clarifying documentation. Please respond to the clarification below the line at the bottom and electronically sign. The CDI & [facility] Coding staff will review the response and follow-up if needed. Please note: Queries are made part of the Legal Health Record. If you have any questions, please contact the author of this message via ITS. Dr. Bar Jacobs, Hypoxic respiratory distress is documented in the Dr Ting Pickett's consult. Additional clarification regarding the etiology of respiratory distress is requested. History/Risk Factors: Influenza A, acute on chronic systolic CHF w HTN, dementia, chronic atrial fibrillation, pacemaker, S/P CABG, hx of COVID Clinical Indicators: Worsening shortness of breath and congestion ongoing for 4 days with requirement of supplemental oxygen today. Vital Signs: T 99.2, P 61, R 24/26, BP 116/66 Pulse Ox: 09/06-, 09/07-, 09/08-, 09/10-, 09/11-, 09/13- Treatment: Tamiflu, IV Lasix, echo, NC O2 @ 2L-4L Please clarify the etiology of respiratory distress, if known: [ ] Acute Respiratory Distress [ ] Acute Hypoxic Respiratory Failure [ ] Other, please specify [ ] Unable to determine Acute Hypoxic Respiratory Failure MTDD
== END 2022-09-14 18:54 | DRG 193 ==
LOC: EC 18:10 → 3SCARD 21:28 → 4SSUR 09-12 20:02
PROVIDERS: ADMIT Internal Medicine; ATTEND Internal Medicine
DX: J10.1 Influenza due to other identified influenza virus with other respiratory manifestations (principal); I50.23 Acute on chronic systolic (congestive) heart failure; J96.01 Acute respiratory failure with hypoxia; I48.20 Chronic atrial fibrillation, unspecified; J44.0 Chronic obstructive pulmonary disease with (acute) lower respiratory infection; J69.0 Pneumonitis due to inhalation of food and vomit; I27.20 Pulmonary hypertension, unspecified; I49.5 Sick sinus syndrome; I11.0 Hypertensive heart disease with heart failure; F03.90 Unspecified dementia, unspecified severity, without behavioral disturbance, psychotic disturbance, mood disturbance, and anxiety; E11.43 Type 2 diabetes mellitus with diabetic autonomic (poly)neuropathy; E78.5 Hyperlipidemia, unspecified; Z66 Do not resuscitate; Z20.822 Contact with and (suspected) exposure to COVID-19; I25.5 Ischemic cardiomyopathy; I25.10 Atherosclerotic heart disease of native coronary artery without angina pectoris; D64.9 Anemia, unspecified; G89.29 Other chronic pain; M54.30 Sciatica, unspecified side; R74.8 Abnormal levels of other serum enzymes; I25.2 Old myocardial infarction; M19.90 Unspecified osteoarthritis, unspecified site; R32 Unspecified urinary incontinence; Z79.82 Long term (current) use of aspirin; Z79.899 Other long term (current) drug therapy; Z87.891 Personal history of nicotine dependence; Z86.73 Personal history of transient ischemic attack (TIA), and cerebral infarction without residual deficits; Z86.16 Personal history of COVID-19; Z95.1 Presence of aortocoronary bypass graft; Z95.0 Presence of cardiac pacemaker
CPT/HCPCS: 36415; 71045; 71046; 71275; 80048; 80053; 80076; 83605; 83735; 83880; 84145; 84484; 85025; 85379; 85610; 85730; 86140; 87040; 87077; 87186; 87636; 93005; 93306; 93970; 94640; 94760; 96372; 96374; 96375; 96376; 99285